=== PATIENT | male | born 1940 | race Caucasian/White ===

== ENCOUNTER → 2016-10-25 | Outpatient (CLI) | payer BC ==
[~2016-10-25] MED LIST: ASCA500 PO; CALC-393 PO; CARB1CAP19 PO; CARB25TA12 PO; CHOL100010 PO; CLON0.5T3 PO; MAGN250T22 PO; MULT-506 PO; POTA99TA PO; PSYL0.524 PO
[2016-10-25 09:32] LABS: BASO % 0.3 %; BASO ABS # 0.02 K/uL (0-0.2); COMPLETE YES; EOS % 4.6 %; HEMATOCRIT 44.4 % (42-52); IG% 0.2 %; LYMPH % 31.7 %; LYMPH ABS # 1.91 K/uL (1.2-3.4); MEAN CELL VOLUME 97.4 fL (80-100); MEAN CORPUSCULAR HEMOGLOBIN 33.1 pg (25-34); MEAN PLATELET VOLUME 10.8 fL (7.4-10.4); MONO % 10.1 %; NEUT % 53.1 %; PLATELET COUNT 195 K/uL (130-400); RED BLOOD COUNT 4.56 M/uL (4.7-6.1); WHITE BLOOD COUNT 6.03 K/uL (4.8-10.8)
[2016-10-25 09:50] LABS: ALT/SGPT 10 U/L (12-78); BLOOD UREA NITROGEN 14 mg/dl (7-18); BUN/CREATININE RATIO 13.7 (10-20); CALCIUM 9.4 mg/dl (8.5-10.1); CARBON DIOXIDE 27 mmol/L (21-32); CHLORIDE 106 mmol/L (98-107); CHOLESTEROL 191 mg/dl (0-200); GLUCOSE 95 mg/dl (70-99); POTASSIUM 4.3 mmol/L (3.5-5.1); SODIUM 139 mmol/L (136-145); TRIGLYCERIDES 63 mg/dl (0-150); VERY LOW DENSITY LIPOPROT CALC 13 mg/dl
[2016-10-25 09:55] LABS: ALKALINE PHOSPHATASE 65 U/L (45-117); AST/SGOT 22 U/L (15-37); CHOLESTEROL/HDL RATIO 3.2; HDL CHOLESTEROL 60 mg/dl; LDL CHOLESTEROL CALCULATED 118 mg/dl; PROSTATE SPECIFIC ANTIGEN < 0.010 ng/ml (0.000-4.000)
== END | disposition home or self-care (01) ==
LOC: C.LAB1850 07:28
PROVIDERS: ATTEND Internal Medicine Pulmonary Disease
DX: I25.10 Atherosclerotic heart disease of native coronary artery without angina pectoris (principal); G47.52 REM sleep behavior disorder; C61 Malignant neoplasm of prostate; I71.4 Abdominal aortic aneurysm, without rupture; G20 Parkinson's disease

== ENCOUNTER → 2016-12-09 | Outpatient (CLI) | payer BC ==
--- NOTE | 2016-12-09 10:38 | DIAGNOSTIC IMAGING REPORT ---
CT OF THE ABDOMEN AND PELVIS WITHOUT CONTRAST CLINICAL HISTORY: Status post open abdominal aortic aneurysm repair. COMPARISON STUDY: CT of the abdomen and pelvis November 07, 2014. TECHNIQUE: Axial images of the abdomen and pelvis were obtained without IV contrast. Images were reviewed in the axial, sagittal, and coronal planes. A dose lowering technique was utilized adhering to the principles of ALARA. FINDINGS: Numerous calcified granulomas within the liver and spleen are noted. Evaluation of the abdomen and pelvis is suboptimal on this unenhanced exam. A few water attenuation left renal lesions are suboptimally assessed on this unenhanced exam but likely reflect cysts. Unenhanced images of the adrenal glands and pancreas are normal. There is a diverticulum of the second portion the duodenum. There is no evidence for a bowel obstruction. There is extensive sigmoid diverticulosis without evidence for acute diverticulitis. There are postoperative findings consistent with an open abdominal aortic aneurysm repair. The infrarenal abdominal aorta is similar in appearance to prior exam, measuring 3.1 cm in caliber. Mild periaortic infiltration remains unchanged. Aneurysmal dilatation of the abdominal aorta at the level the renal arteries, measuring 3.8 cm is noted. This is similar to prior exam. There is no evidence for rupture. There are brachytherapy seeds within the prostate. There are no suspicious osseous lesions. No enlarged abdominal or pelvic lymph nodes are present. IMPRESSION: Stable postoperative findings consistent with open repair of abdominal aortic aneurysm. Abdominal aorta measures 3.8 cm at the level of the renal arteries. Infrarenal abdominal aorta measures 3.1 cm. Stable mild periaortic infiltration. No evidence of rupture. Electronically signed by: Austin Fong M.D. 12/09/2016 10:37 AM Dictated Date/Time: 12/09/2016 10:21 AM
== END | disposition home or self-care (01) ==
LOC: C.CTS 09:52
PROVIDERS: ATTEND Physician Assistant
DX: I71.4 Abdominal aortic aneurysm, without rupture (principal); Z98.890 Other specified postprocedural states

== ENCOUNTER → 2016-12-10 | Outpatient (CLI) | payer BC ==
[2016-12-10 13:21] VITALS: BP 104/68; PULSE 82; TEMP 36.7; O2SAT 92
--- NOTE | 2016-12-10 17:34 | Radiation Oncology Follow-Up ---
Radiation Oncology Follow-Up Date of Visit Dec 10, 2016. Reason For Visit Annual follow-up Radiation Completion Date prostate seed implant 06-18-2011 and IMRT / IGRT 09-18-2011 Diagnosis (1) Prostate cancer Status: Resolved Onset Date: 03/25/2011 Location: right lobe of the prostate Histology Subtype: adenocarcinoma Stage: ll Permanent Comment: Rising PSA Status post ultrasound-guided biopsies biopsy stage T2a Sarah grade 4+4 Status post hormonal suppression Status post prostate seed implant with cesium 131 completed June 18 2011 Status post IMRT/IGRT completed 09/18/2011 Last Edited By: Doris Arboleda on Dec 08, 2014 15:28 History of Present Illness Mr. Perez is a 75-year-old male was seen along with his in radiation oncology clinic . The patient is being followed for PSA from 2005 to November 2010. His PSA was fluctuating from 1.4 to 8. The patient was biopsied in 2008 without evidence of histologically proven cancer. However, the PSA was continued to stay between 6.4 to 7.9 and recently patient had a biopsy for the second time on March 2011. The pathology shows a small focus of adenocarcinoma 8% of he 1.2 cm biopsy speciman showed involvement without perineural invasion. 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 More than couple years patient is on Flomax for for his irritative urinary symptoms of incomplete bladder emptying and nocturia. His most recent urinary symptom score is 8 and Flomax seems to help him for his urinary symptoms. The transrectal ultrasound and transrectal prostate biopsy was done on March 2011 which shows the prostate is about 30 cc. Prostate on digital rectal examination shows no evidence of prostatic nodule. Interim History He's been doing well over this past year. He feels that his urinary status is stable. He gave an AUA score of 6. He completed and expanded prostate cancer index composite for clinical practice and gave a score of one of 12 and urinary incontinence symptoms. He gave a score of 0 of 12 in urinary irritation symptoms. He gave a score of 2 of 12 in bowel symptoms. He gave a score of 8 of 12 in sexual symptoms. He gave a score of 2 of 12 and hormonal vitality symptoms his total was 13 of 60. He had a recheck PSA 10/25/2016. That was less than 0.01. Allergies Coded Allergies: No Known Allergies (Unverified , NONE, 03/06/09) Home Medications Scheduled Carbidopa-Levodopa (Rytary 23.75-95 mg), 1 CAP PO TID Clonazepam (Klonopin), 0.5 TAB PO HS Multivitamin (Multivitamin), 1 TAB PO DAILY Psyllium (Metamucil), 2 MG PO Q2D Review of Systems Gastrointestinal: Symptoms: Constipation GI Comments: takes metamucil every other day Oral: Symptoms: No Problems Respiratory: Symptoms: WNL Sputum Character: Clear to light bang in color; Other Respiratory: " i have a cold or allergies " Urinary: Symptoms: Nocturia Comments: occ dribbling, nocturia times 2 Skin: Symptoms: No Problems Physical Exam Vital Signs Date Time Temp Pulse Resp B/P (MAP) Pulse Ox O2 Delivery O2 Flow Rate FiO2 12/10/16 13:21 36.7 82 18 104/68 92 Pain: Side: Bilateral Patient Pain Scale: 0 - 10 Initial Pain Intensity: 0.0 Fatigue: None General Appearance: + pertinent finding (noted tremor of the hands) Eyes: normal inspection, EOMI ENT: normal ENT inspection, hearing grossly normal Respiratory/Chest: lungs clear, no respiratory distress, no accessory muscle use Cardiovascular: regular rate, rhythm, no gallop, no murmur Abdomen: non tender, soft, no organomegaly Anal / Rectum: Laxed sphincter tone. Prostate consistent with seed implant. No rectal masses no rectal bleeding. Extremities: no pedal edema Neurologic/Psychiatric: no motor/sensory deficits, alert, normal mood/affect Skin: warm/dry Laboratory Studies Test 10/25/16 07:32 White Blood Count 6.03 K/uL (4.8-10.8) Red Blood Count 4.56 M/uL (4.7-6.1) Hemoglobin 15.1 g/dL (14.0-18.0) Hematocrit 44.4 % (42-52) Mean Corpuscular Volume 97.4 fL (80-100) Mean Corpuscular Hemoglobin 33.1 pg (25-34) Mean Corpuscular Hemoglobin Concent 34.0 g/dl (32-36) Platelet Count 195 K/uL (130-400) Mean Platelet Volume 10.8 fL (7.4-10.4) Neutrophils (%) (Auto) 53.1 % Lymphocytes (%) (Auto) 31.7 % Monocytes (%) (Auto) 10.1 % Eosinophils (%) (Auto) 4.6 % Basophils (%) (Auto) 0.3 % Neutrophils # (Auto) 3.20 K/uL (1.4-6.5) Lymphocytes # (Auto) 1.91 K/uL (1.2-3.4) Monocytes # (Auto) 0.61 K/uL (0.11-0.59) Eosinophils # (Auto) 0.28 K/uL (0-0.5) Basophils # (Auto) 0.02 K/uL (0-0.2) RDW Standard Deviation 49.0 fL (36.4-46.3) RDW Coefficient of Variation 13.7 % (11.5-14.5) Immature Granulocyte % (Auto) 0.2 % Immature Granulocyte # (Auto) 0.01 K/uL (0.00-0.02) Sodium Level 139 mmol/L (136-145) Potassium Level 4.3 mmol/L (3.5-5.1) Chloride Level 106 mmol/L (98-107) Carbon Dioxide Level 27 mmol/L (21-32) Anion Gap 6.0 mmol/L (3-11) Blood Urea Nitrogen 14 mg/dl (7-18) Creatinine 1.00 mg/dl (0.60-1.40) Estimated GFR () 83.8 Estimated GFR (Non- 72.3 BUN/Creatinine Ratio 13.7 (10-20) Random Glucose 95 mg/dl (70-99) Calcium Level 9.4 mg/dl (8.5-10.1) Total Bilirubin 0.6 mg/dl (0.2-1) Aspartate Amino Transferase (AST) 22 U/L (15-37) Alanine Aminotransferase (ALT) 10 U/L (12-78) Alkaline Phosphatase 65 U/L (45-117) Total Protein 8.0 gm/dl (6.4-8.2) Albumin 3.9 gm/dl (3.4-5.0) Globulin 4.1 gm/dl (2.5-4.0) Albumin/Globulin Ratio 1.0 (0.9-2) Triglycerides Level 63 mg/dl (0-150) Cholesterol Level 191 mg/dl (0-200) HDL Cholesterol 60 mg/dl LDL Cholesterol, Calculated 118 mg/dl VLDL Cholesterol, Calculated 13 mg/dl Cholesterol/HDL Ratio 3.2 Prostate Specific Antigen < 0.010 ng/ml (0.000-4.000) Assessment & Plan Plan: Continue annual PSAs. He has been getting these through his primary care physician's office. He previously had been taking calcium and vitamin D due to the one year of hormonal suppression. This was discontinued due to a concern of the absorption of his Parkinson's medication. We discussed that the effect that the hormone suppression had was for approximately one year. He did take supplementation for an extended period of time. He is therefore staying off of the calcium and vitamin D. DEXA scanning will be at the discretion of his primary care physician. A follow-up appointment with our office was not given. He will now follow with his primary care physician alone. He may call our office if he has any questions or concerns. Total Time In Follow-Up I spent 20 minutes speaking to the patient formal examination. I spent 15 minutes reviewing information completing this note. Copy To Brian Yan M.D.
== END | disposition home or self-care (01) ==
LOC: C.ONC 12:55
PROVIDERS: ATTEND Physician Assistant Medical
DX: Z08 Encounter for follow-up examination after completed treatment for malignant neoplasm (principal); Z92.3 Personal history of irradiation; Z85.46 Personal history of malignant neoplasm of prostate

== ENCOUNTER → 2017-03-11 | Outpatient (CLI) | payer BC ==
[~2017-03-11] MED LIST changes: -ASCA500 PO; -CALC-393 PO; -CARB25TA12 PO; -CHOL100010 PO; -MAGN250T22 PO; -POTA99TA PO
--- NOTE | 2017-03-11 08:44 | DIAGNOSTIC IMAGING REPORT ---
ULTRASOUND SOFT TISSUES NECK CLINICAL HISTORY: Palpable nodules in the left posterior neck. COMPARISON STUDY: No priors. FINDINGS: Real-time, grayscale, and color flow sonography of the soft tissues of the neck is performed at the indicated site of interest in the left posterior neck. There are 2 heterogeneous hypoechoic nodules identified within the subcutaneous soft tissues at this site. These measure 0.9 x 0.4 x 0.6 cm and 0.3 x 0.3 x 0.3 cm. Both appear to demonstrate a hypoechoic tail which extends to the dermal surface. No internal flow is seen on color imaging. IMPRESSION: 1. There are 2 subcentimeter hypoechoic nonvascular nodules identified within the subcutaneous soft tissues at the site of interest. Both appear to demonstrate a small tail which extends to the dermal surface. This suggests that these represent small sebaceous cysts. 2. Tiny lymph nodes are considered somewhat less likely but are the top differential consideration. Clinical correlation and follow-up will be required. Electronically signed by: Lorenzo Zee M.D. 03/11/2017 8:43 AM Dictated Date/Time: 03/11/2017 8:38 AM
== END | disposition home or self-care (01) ==
LOC: C.ULTR 08:14
PROVIDERS: ATTEND Dermatology
DX: R22.1 Localized swelling, mass and lump, neck (principal)

== ENCOUNTER 2018-07-27 09:55 | Inpatient (IN) ==
[2018-07-27] MEDS ORDERED: ASPIRIN CHEW 324 MG PO STA (10:09)
[2018-07-27] MEDS ORDERED: SODIUM CHLORIDE 0.9% 500 ML IV SCH (10:15)
[2018-07-27] MEDS ORDERED: CARBIDOPA/LEVODOPA 25/100MG TAB PO STA (10:17)
--- NOTE | 2018-07-27 10:43 | XRay Report ---
XR chest 1V portable CLINICAL HISTORY: a flutter dyspnea COMPARISON STUDY: 07/27/2018 9:23 AM FINDINGS: Stable moderate cardiomegaly. Slight increase in pulmonary vasculature. Potential consolida tive change medial aspect right base. IMPRESSION: 1. Mildly progressive components of congestive failure. 2. Potential superimposed consolidative change medial aspect right base. The above report was generated using voice recognition software. It may contain grammatical, syntax or spelling errors. Electronically signed by: Torrey Ramirez M.D. 07/27/2018 10:42 AM
[2018-07-27 10:45] LABS: Basophils # (auto) 0.04 K/uL (0-0.2); Basophils % (auto) 0.3 %; Eosinophils # (auto) 1.42 K/uL (0-0.5); Eosinophils % (auto) 10.2 %; Hematocrit (blood only) 40.2 % (42-52); Hemoglobin 13.4 g/dL (14.0-18.0); Immature Granulocytes # (auto) 0.06 K/uL (0.00-0.02); Immature Granulocytes % (auto) 0.4 %; Lymphocytes # (auto) 1.37 K/uL (1.2-3.4); Lymphocytes % (auto) 9.8 %; Mean Corpuscular Hgb Conc 33.3 g/dL (32-36); Mean Corpuscular Volume 95.7 fL (80-100); Mean Platelet Volume 10.1 fL (7.4-10.4); Monocytes # (auto) 1.43 K/uL (0.11-0.59); Monocytes % (auto) 10.3 %; Platelet Count 286 K/uL (130-400); RDW Coefficient of Variation 13.4 % (11.5-14.5); RDW Standard Deviation 46.6 fL (36.4-46.3); White Blood Count 13.92 K/uL (4.8-10.8)
[2018-07-27] MEDS: SODIUM CHLORIDE 0.9% 1000ML 1,000 ML IV SCH ×2 (10:46→19:31)
[2018-07-27] MEDS: METOPROLOL TARTRATE 1 MG/ML VIAL IV PRN ×3 (10:47→22:56)
[2018-07-27 10:59] LABS: INR 1.1 (0.9-1.1); Partial Thromboplastin Ratio 0.9
[2018-07-27 11:02] LABS: Alanine Aminotransferase 19 U/L (12-78); Aspartate Aminotransferase 17 U/L (15-37); Blood Urea Nitrogen 21 mg/dl (7-18); Calcium 9.1 mg/dl (8.5-10.1); Carbon Dioxide 28 mmol/L (21-32); Chloride 108 mmol/L (98-107); Creatinine Clr Calc Pharmacy 67.5 ml/min; Est GFR (African American) 80.6; Est GFR (Non-African American) 69.6; Glucose 96 mg/dl (70-99); Magnesium 2.6 mg/dl (1.8-2.4); Potassium 4.2 mmol/L (3.5-5.1); Sodium 140 mmol/L (136-145)
[2018-07-27 11:12] LABS: Albumin Globulin Ratio 0.7 (0.9-2); Alkaline Phosphatase 75 U/L (45-117); Bilirubin,Total 0.3 mg/dl (0.2-1); Globulin 4.3 gm/dl (2.5-4.0); Total Protein 7.3 gm/dl (6.4-8.2); Troponin I < 0.015 ng/ml (0-0.045)
[2018-07-27] MEDS ORDERED: SODIUM CHLORIDE 0.9% 1000ML 250 ML IV ONE (11:13)
[2018-07-27] MEDS ORDERED: OPTIRAY 320 125ml IV PRN (11:36)
[2018-07-27] MEDS ORDERED: dilTIAZem HCl 5 MG/ML 5 ML VIAL IV STA (11:50)
--- NOTE | 2018-07-27 11:52 | CT Scan Report ---
CT angio chest PE protocol CT DOSE: 513.36 mGy.cm HISTORY: 77 years-old Male with PE. Acute shortness of breath with tachycardia TECHNIQUE: Multiple CTA images of the chest were obtained after the intravenous administration of 94 ml Optiray 320. Coronal and sagittal MIPS were obtained from the axial data set and were submitted f or review. All measurements were obtained according to NASCET criteria. A dose lowering technique wa s utilized adhering to the principles of ALARA. COMPARISON: Chest CT 03/06/2009. FINDINGS: CTA: Moderate multichamber cardiac enlargement with trace pericardial effusion. Coronary arterial calcific ations are noted. The left heart structures and aortic outflow tract are not well opacified secondary to contrast bolus timing. No thoracic aortic aneurysm identified. Mixed plaque formation of the thor acic aorta and proximal great vessels with mild tortuosity about the descending thoracic aorta. There is mild dilation about the right left main pulmonary arterial branches. The pulmonary arterial tree is opacified to the level of the segmental branches. The distal segmental and subsegmental branches a re not well opacified secondary to contrast bolus timing respiratory motion. There are no focal filli ng defects identified to suggest pulmonary thromboembolic disease. There is reflux of contrast noted into the IVC. CT CHEST: Thyroid appears unremarkable. Enlarged mediastinal, right hilar and subcarinal lymph nodes are noted including a 1.8 x 1.6 cm pretracheal lymph node on image 176 series 4. Chronically calcified left hil ar lymph nodes. Chronic subpleural reticulation with subpleural cystic changes noted about the bilateral lungs. Bilat eral bronchial wall thickening is noted. Subsegmental left basilar atelectasis. Calcified granulomata noted about the lingula. There is a small right pleural effusion. Extensive consolidation is noted t hroughout the right lung which probably involves the right lower lobe but also involves the right mid dle lobe and right upper lobe. Right hilar fullness with narrowing of the bronchus intermedius, right middle and right lower lobe bronchi noted. A discrete mass is not definitively seen. Mucous plugging of the right lung base is also noted. There is mild asymmetric intralobular septal thickening throug hout the right lung with multifocal groundglass densities. Calcified bang limit about the spleen and liver. No acute process of the imaged upper abdomen. The so ft tissues are unremarkable. Bones appear to be intact. Degenerative changes of the shoulders and spi ne. No suspicious bone lesions identified. IMPRESSION: 1. Cardiomegaly with redemonstration of chronic interstitial lung disease. 2. No evidence of pulmonary thromboembolic disease. 3. Small right pleural effusion with extensive consolidation and groundglass densities about the righ t lung involving all lobes however most notably within the right lower lobe. These findings are sugge stive of pneumonia and/or aspiration pneumonitis. 4. There is right hilar fullness with apparent narrowing of the bronchus intermedius, right middle an d lower lobe bronchi with multifocal mucus plugging. Follow-up recommended to exclude underlying [place] r neoplasm. 5. Paratracheal, subcarinal and right hilar adenopathy. 6. Mild intralobular septal thickening throughout the right lung may reflect asymmetric mild pulmonar y edema. 7. Prior granulomatous disease. The above report was generated using voice recognition software. It may contain grammatical, syntax o r spelling errors. Electronically signed by: Guillermo Quevedo M.D. 07/27/2018 11:50 AM
[2018-07-27] MEDS ORDERED: PIPERACILL/TAZOBAC CONSULT ACTIVE PRN (12:09)
[2018-07-27] MEDS ORDERED: PIPERACILLIN/TAZOBACTAM 4.5 GM/120 ML BAG IV ONE (12:09)
[2018-07-27] MEDS ORDERED: dilTIAZem HCl 5 MG/ML 5 ML VIAL IV ONE (12:31)
--- NOTE | 2018-07-27 12:58 | History & Physical Report ---
Date of Service July 27, 2018 Assessment & Plan (1) Atrial flutter with rapid ventricular response: Improved s/p metoprolol and cardizem in the ED, however did become hypoTN Likely related to PNA Monitor ECHO pending Cardiology c/s pending (2) PNA (pneumonia): Noted on CXR and CTA Failed outpt abx/steroids Started on zosyn in the ED, will change to ceftriaxone/azithromycin ?? of aspiration, pt relates hx of some coughing/choking with swallowing ST eval pending Will continue steroids as PO as at home (3) Parkinson disease: continue home meds (4) Anxiety: continue home meds (5) Prostate cancer: Remote hx, no current tx (6) DVT prophylaxis: SCDs, Heparin for DVT proph History of Present Illness Primary Care Provider: Brian Yan MD 77 y/o M who was sent here from PCP's office for aflutter. Pt has been working with PCP for a PNA for the last 2-3 weeks. He was given an abx that was not helping so it was changed to another. He is not certain which abx he was on initially or now. He was also given steroids last week. Pt does not feel he is getting worse, but he is getting no better. Ongoing SOB and cough. He feels that he is getting "played out" very easily now and this is worse over the last week. He tolerates PO but has a low appetite. He states this is not new for him. Pt denies fever, chest pain, abd pain, n/v/c/d, LE pain or swelling. Pt states that he does cough/choke at times after he swallows. He states it does not happen with every meal or even every day, but he cannot quantify this further for me. "I haven't been keeping a record of it." Allergies Allergy/AdvReac Type Severity Reaction Status Date / Time No Known Allergies Allergy Unknown NONE Unverified 07/27/18 10:36 Home Medications Home Medications Medication Instructions Recorded Confirmed Type amoxicillin-pot clavulanate 1 tab PO BID 07/27/18 07/27/18 History carbidopa-levodopa [Rytary] 2 cap PO QID 07/27/18 07/27/18 History clonazepam [Klonopin] 0.25 - 0.5 mg PO HS PRN 07/27/18 07/27/18 History fluoride (sodium) [PreviDent] 1 applic DENTAL DAILY 07/27/18 07/27/18 History prednisone 5 mg PO DIRECTED 07/27/18 07/27/18 History Past Med/Surg History Medical History Anxiety Parkinson disease Prostate cancer (Chronic) Social History Preferred Language: Luxembour[place] Beliefs That Will Affect Care: None Current Living Situation: Spouse Other Information That Helps Us Care for You: No Feels Safe at Home: Yes Smoking Status: Former smoker Hx Alcohol Use: Yes Hx Substance Use: No Review of Systems Pertinent positives and negatives reviewed in HPI--all others negative Physical Exam Vital Signs (Past 24 Hours): Last Vital Signs Pulse 79 07/27/18 12:15 Resp 26 H 07/27/18 12:15 BP 101/56 L 07/27/18 12:15 Pulse Ox 98 07/27/18 12:00 Constitutional: WD/WN, vitals as above Eyes: normal visual jimenez by confrontation and + anicteric sclerae Neck: normal visual inspection and trachea midline Respiratory: normal respiratory effort; no respiratory distress Auscultation: + crackles Cardiovascular: Rate/Rhythm: regular rhythm and + tachycardic Gastrointestinal (Abdomen): Inspection/Auscultation: abdomen not distended Percussion/Palpation: abdomen soft; abdomen nontender Musculoskeletal: Head/Neck/Chest: normocephalic and head atraumatic negative for edema, peripheral pulses intact Skin: no rashes, warm and dry Neurologic: awake; not confused Speech / Cognition: normal speech Psychiatric: A+Ox3, euthymic affect Results & Data Diagnostic Findings CXR: CHF, R base consolidation CTA: 1. Cardiomegaly with redemonstration of chronic interstitial lung disease. 2. No evidence of pulmonary thromboembolic disease. 3. Small right pleural effusion with extensive consolidation and groundglass densities about the right lung involving all lobes however most notably within the right lower lobe. These findings are suggestive of pneumonia and/or aspiration pneumonitis. 4. There is right hilar fullness with apparent narrowing of the bronchus intermedius, right middle and lower lobe bronchi with multifocal mucus plugging. Follow-up recommended to exclude underlying hilar neoplasm. 5. Paratracheal, subcarinal and right hilar adenopathy. 6. Mild intralobular septal thickening throughout the right lung may reflect asymmetric mild pulmonary edema. 7. Prior granulomatous disease. ECG Rhythm: atrial flutter Code Status & VTE Plan Code Status DNR/DNI per pt request VTE Prophylaxis Plan VTE Prophylaxis will be ordered: Yes (1) PNA (pneumonia) Laterality: right Lung location: middle lobe of lung Pneumonia type: due to unspecified organism Qualified Code(s): J18.1 - Lobar pneumonia, unspecified organism
[2018-07-27] MEDS ORDERED: MAGNESIUM HYDROXIDE SUSP 30 ML UDC PO PRN (15:42)
[2018-07-27] MEDS ORDERED: ONDANSETRON INJ 2 MG/ML 2 ML VIAL IV PRN (15:42)
[2018-07-27] MEDS ORDERED: ACETAMINOPHEN 325 MG TAB PO PRN (15:42)
[2018-07-27] MEDS ORDERED: clonazePAM 0.5 MG TAB PO PRN (15:42)
[2018-07-27] MEDS ORDERED: AZITHROMYCIN 500 MG in PEDIATRIC DILUENT 0 ML IV ONE (15:42)
--- NOTE | 2018-07-27 16:27 | Emergency Department Note ---
Entered by Niki Licea acting as a scribe for Paulette Coombs MD History of Present Illness General Chief complaint: Illness Stated complaint: HEART RACING, PNEUMONIA Source: patient, family () and other (nursing staff) History of Present Illness Provider complaint: tachycardia Onset (ago): hour(s) (this morning) Location: chest Quality: + other (tachycardia) Associated symptoms: + weakness and + other (pneumonia); no fever/chills The patient is a 77 year old male who presents to the Emergency Room with complaints of tachycardia this morning. He states that he can feel his heart beating fast and that he does not "feel right." The patient states that he has pneumonia and had an X-Ray done at Dr. Yan's office. Per , the patient has been sick for about 1 month. The patient states that he is not on blood thinners. His states that the patient is on medication for trembling hands. He reports feeling weak but denies being febrile. He denies feeling uncomfortable lying flat. Per nursing staff, the patient has been on doxycycline, Augmentin, and Prednisone and has failed outpatient treatment. Nursing staff states that the patient has a recent history of atrial flutter, and that he had atrial flutter on an ECG done today and was referred here. Home Medications Home Medications Medication Instructions Recorded Confirmed Type amoxicillin-pot clavulanate 1 tab PO BID 07/27/18 07/27/18 History carbidopa-levodopa [Rytary] 2 cap PO QID 07/27/18 07/27/18 History clonazepam [Klonopin] 0.25 - 0.5 mg PO HS PRN 07/27/18 07/27/18 History fluoride (sodium) [PreviDent] 1 applic DENTAL DAILY 07/27/18 07/27/18 History prednisone 5 mg PO DIRECTED 07/27/18 07/27/18 History Allergies Allergy/AdvReac Type Severity Reaction Status Date / Time No Known Allergies Allergy Unknown NONE Unverified 07/27/18 10:36 Past Med/Surg History Medical History Anxiety Parkinson disease Prostate cancer (Chronic) Surgical History S/P AAA repair Family History Brother Heart disease [place] Brother Stroke Other No pertinent family history Social History Preferred Language: Liberian Beliefs That Will Affect Care: None Current Living Situation: Spouse Other Information That Helps Us Care for You: No Feels Safe at Home: Yes Smoking Status: Former smoker Hx Alcohol Use: Yes Hx Substance Use: No Review of Systems See HPI for pertinent positives & negatives. and A total of 10 systems reviewed and were otherwise negative Physical Exam Vital Signs Vital Signs - 24 hr 07/29/18 03:43 07/29/18 08:08 07/29/18 08:30 Temperature 36.8 C 36.9 C Temperature Source Oral Oral Pulse Rate Pulse Rate [Finger] 128 H 89 93 H Pulse Rhythm [Finger] Regular Pulse Strength [Finger] Normal Respiratory Rate 18 22 20 Respiratory Effort / Characteristics Non-Labored Spontaneous Respiratory Depth Normal Deep Deep Respiratory Pattern Blood Pressure [Left Arm] 105/68 99/63 L 120/81 Blood Pressure [Right Arm] Blood Pressure Mean [Left Arm] 80 75 94 Blood Pressure Mean [Right Arm] Blood Pressure Position [Left Arm] Lying Lying Lying Blood Pressure Position [Right Arm] Pulse Oximetry 94 93 92 Oxygen Delivery Method Room Air Room Air Room Air 07/29/18 09:00 07/29/18 09:09 07/29/18 11:59 Temperature 36.4 C L Temperature Source Oral Pulse Rate 87 Pulse Rate [Finger] 87 85 Pulse Rhythm [Finger] Pulse Strength [Finger] Respiratory Rate 18 18 Respiratory Effort / Characteristics Spontaneous Short of Breath Respiratory Depth Normal Respiratory Pattern Regular Blood Pressure [Left Arm] 105/69 102/63 Blood Pressure [Right Arm] Blood Pressure Mean [Left Arm] 81 76 Blood Pressure Mean [Right Arm] Blood Pressure Position [Left Arm] Lying Lying Blood Pressure Position [Right Arm] Pulse Oximetry 92 94 Oxygen Delivery Method Room Air Room Air Room Air 07/29/18 15:46 07/29/18 16:00 07/29/18 19:08 Temperature 36.5 C 36.3 C L Temperature Source Oral Oral Pulse Rate 87 Pulse Rate [Finger] 82 93 H Pulse Rhythm [Finger] Pulse Strength [Finger] Respiratory Rate 20 16 Respiratory Effort / Characteristics Respiratory Depth Respiratory Pattern Blood Pressure [Left Arm] Blood Pressure [Right Arm] 117/74 115/78 Blood Pressure Mean [Left Arm] Blood Pressure Mean [Right Arm] 88 90 Blood Pressure Position [Left Arm] Blood Pressure Position [Right Arm] Lying Lying Pulse Oximetry 95 96 Oxygen Delivery Method Room Air Room Air 07/29/18 20:00 Temperature Temperature Source Pulse Rate Pulse Rate [Finger] Pulse Rhythm [Finger] Pulse Strength [Finger] Respiratory Rate Respiratory Effort / Characteristics Non-Labored Spontaneous Respiratory Depth Normal Respiratory Pattern Regular Blood Pressure [Left Arm] Blood Pressure [Right Arm] Blood Pressure Mean [Left Arm] Blood Pressure Mean [Right Arm] Blood Pressure Position [Left Arm] Blood Pressure Position [Right Arm] Pulse Oximetry Oxygen Delivery Method Room Air Vital signs reviewed. General: Elderly,somewhat ill-appearing male, in no significant distress. HEENT: No scleral icterus, PERRLA, neck supple. Atraumatic. Cardiovascular: Tachycardic rate and regular rhythm, no extra sounds. Pulmonary: Clear to auscultation bilaterally, normal work of breathing. Abdomen: Soft, nontender, nondistended, positive bowel sounds. Musculoskeletal: Atraumatic, no peripheral edema. Neurologic: Patient awake alert and oriented x 3, full strength in all 4 extremities. Cranial nerves 2 through 12 grossly intact. Flat affect. Skin: Warm, dry, no rash Course 1008: The patient was evaluated in room A2, and a complete history and physical examination were performed. 1212: I discussed the patient's case with Dr. Lou Catalan who will evaluate the patient for further management. 1220: I updated the patient and his who verbalized agreement and understanding of the treatment plan. Consultations Consultation #1: Dr. Lou Catalan Time: 12:12 Administered Medications Carbidopa/Levodopa (Sinement Cr 25/100mg) 2 tab PO DAILY@0700,1200,1800 JANE Stop: 08/26/18 17:59 Last Admin: 07/29/18 17:11 Dose: 2 tab Documented by: [id number] Admin: 07/29/18 12:37 Dose: 2 tab Documented by: [id number] Admin: 07/29/18 08:26 Dose: 2 tab Documented by: [id number] Admin: 07/29/18 05:48 Dose: Not Given Documented by: [id number] Admin: 07/28/18 17:18 Dose: 2 tab Documented by: [id number] Admin: 07/28/18 12:27 Dose: 2 tab Documented by: [id number] Admin: 07/28/18 06:17 Dose: 2 tab Documented by: [id number] Admin: 07/27/18 18:27 Dose: 2 tab Documented by: [id number] Guaifenesin (Mucinex) 1,200 mg PO Q12 JANE Stop: 08/28/18 08:59 Last Admin: 07/29/18 19:55 Dose: 1,200 mg Documented by: [id number] Admin: 07/29/18 12:39 Dose: 1,200 mg Documented by: [id number] Ceftriaxone Sodium 1,000 mg/ (Dextrose) 50 mls @ 100 mls/hr IV Q24H JANE; Protocol Stop: 08/03/18 16:29 Last Infusion: 07/29/18 17:08 Dose: 0 mls/hr Documented by: [id number] Admin: 07/29/18 16:14 Dose: 100 mls/hr Documented by: [id number] Infusion: 07/28/18 17:24 Dose: 0 mls/hr Documented by: [id number] Admin: 07/28/18 16:40 Dose: 100 mls/hr Documented by: [id number] Infusion: 07/27/18 17:30 Dose: 0 mls/hr Documented by: [id number] Admin: 07/27/18 16:56 Dose: 100 mls/hr Documented by: [id number] Azithromycin 250 mg/ Dextrose 252.5 mls @ 125 mls/hr IV Q24H JANE Stop: 08/03/18 16:59 Last Infusion: 07/29/18 19:20 Dose: 0 mls/hr Documented by: [id number] Admin: 07/29/18 17:11 Dose: 125 mls/hr Documented by: [id number] Infusion: 07/28/18 20:15 Dose: 0 mls/hr Documented by: [id number] Admin: 07/28/18 17:17 Dose: 125 mls/hr Documented by: [id number] Infusion: 07/27/18 20:50 Dose: 0 mls/hr Documented by: [id number] Admin: 07/27/18 17:22 Dose: 125 mls/hr Documented by: [id number] Heparin Sodium/Dextrose (Heparin Sodium/Dextrose) 25,000 units in 500 mls @ 29 mls/hr IV .[id number] JANE; Protocol Stop: 08/27/18 09:59 Last Admin: 07/29/18 19:55 Dose: 1,450 units/hr, 29 mls/hr Documented by: [id number] Cosigned by: [id number] Titration: 07/29/18 19:55 Dose: 1,450 units/hr, 29 mls/hr Documented by: [id number] Cosigned by: [id number] Titration: 07/29/18 19:07 Dose: 1,450 units/hr, 29 mls/hr Documented by: [id number] Cosigned by: [id number] Titration: 07/29/18 08:10 Dose: 1,450 units/hr, 29 mls/hr Documented by: [id number] Cosigned by: [id number] Admin: 07/29/18 03:11 Dose: 1,450 units/hr, 29 mls/hr Documented by: [id number] Cosigned by: [id number] Titration: 07/29/18 03:11 Dose: 1,450 units/hr, 29 mls/hr Documented by: [id number] Cosigned by: [id number] Titration: 07/28/18 16:51 Dose: 1,450 units/hr, 29 mls/hr Documented by: [id number] Cosigned by: [id number] Admin: 07/28/18 10:06 Dose: 1,450 units/hr, 29 mls/hr Documented by: [id number] Cosigned by: [id number] Ioversol (Optiray 320 125ml) 120 ml IV ONCE PRN PRN Reason: Interaction Checking Stop: 07/31/18 11:35 Last Admin: 07/27/18 11:36 Dose: 120 ml Documented by: [id number] Metoprolol Tartrate (Lopressor) 5 mg IV Q5M PRN PRN Reason: Tachycardia Stop: 08/26/18 10:08 Last Admin: 07/27/18 22:56 Dose: 5 mg Documented by: [id number] Admin: 07/27/18 21:10 Dose: 5 mg Documented by: [id number] Admin: 07/27/18 10:47 Dose: 5 mg Documented by: [id number] Prednisone (Prednisone) 5 mg PO DAILY JANE Stop: 08/27/18 08:59 Last Admin: 07/29/18 08:26 Dose: 5 mg Documented by: [id number] Admin: 07/28/18 08:00 Dose: 5 mg Documented by: [id number] Discontinued Medications Aspirin (Aspirin) 324 mg PO NOW STA Stop: 07/27/18 10:10 Last Admin: 07/27/18 10:46 Dose: 324 mg Documented by: [id number] Benzocaine/Butamben/Tetracaine HCl (Cetacaine) Confirm Administered Dose 1 appln EXT .STK-MED ONE Stop: 07/29/18 07:26 Last Admin: 07/29/18 08:26 Dose: Not Given Documented by: [id number] Carbidopa/Levodopa (Sinemet 25/100 Mg) 1 tab PO NOW STA Stop: 07/27/18 10:18 Last Admin: 07/27/18 10:47 Dose: 1 tab Documented by: [id number] Diltiazem HCl (Cardizem) 10 mg IV NOW STA Stop: 07/27/18 11:51 Last Admin: 07/27/18 11:57 Dose: 10 mg Documented by: [id number] Cosigned by: [id number] Diltiazem HCl (Cardizem) 10 mg IV PRN ONE Stop: 07/27/18 12:32 Last Admin: 07/27/18 13:51 Dose: 10 mg Documented by: [id number] Cosigned by: [id number] Heparin Sodium (Porcine) (Heparin Sodium (Porcine)) 5,000 units SQ Q8 JANE Stop: 08/26/18 21:59 Last Admin: 07/28/18 05:09 Dose: 5,000 units Documented by: [id number] Cosigned by: [id number] Admin: 07/27/18 21:12 Dose: 5,000 units Documented by: [id number] Cosigned by: [id number] Heparin Sodium/Dextrose () 1 ea IV Q15M [facility]; Protocol Stop: 07/28/18 09:46 Last Admin: 07/28/18 10:08 Dose: 1 ea Documented by: [id number] Sodium Chloride (Nss 1000ml) 1,000 mls @ 125 mls/hr IV .Q8H [facility] Stop: 08/26/18 10:14 Last Infusion: 07/29/18 14:27 Dose: 0 mls/hr Documented by: [id number] Admin: 07/29/18 09:29 Dose: 125 mls/hr Documented by: [id number] Infusion: 07/29/18 09:29 Dose: 125 mls/hr Documented by: [id number] Admin: 07/29/18 01:35 Dose: 125 mls/hr Documented by: [id number] Infusion: 07/29/18 01:17 Dose: 125 mls/hr Documented by: [id number] Admin: 07/28/18 17:17 Dose: 125 mls/hr Documented by: [id number] Infusion: 07/28/18 17:17 Dose: 125 mls/hr Documented by: [id number] Admin: 07/28/18 10:08 Dose: 125 mls/hr Documented by: [id number] Infusion: 07/28/18 10:08 Dose: 125 mls/hr Documented by: [id number] Admin: 07/28/18 03:25 Dose: 125 mls/hr Documented by: [id number] Infusion: 07/28/18 03:25 Dose: 125 mls/hr Documented by: [id number] Admin: 07/27/18 19:31 Dose: 125 mls/hr Documented by: [id number] Infusion: 07/27/18 18:46 Dose: 125 mls/hr Documented by: [id number] Admin: 07/27/18 10:46 Dose: 125 mls/hr Documented by: [id number] Sodium Chloride (Nss 1000ml) 250 mls @ 999 mls/hr IV .Q16M ONE Stop: 07/27/18 11:28 Last Infusion: 07/27/18 12:15 Dose: 0 mls/hr Documented by: [id number] Admin: 07/27/18 11:28 Dose: 999 mls/hr Documented by: [id number] Piperacillin Sod/Tazobactam Sod (Zosyn) 4.5 gm in 120 mls @ 240 mls/hr IV NOW ONE Stop: 07/27/18 12:38 Last Infusion: 07/27/18 13:08 Dose: 0 mls/hr Documented by: [id number] Admin: 07/27/18 12:16 Dose: 240 mls/hr Documented by: [id number] Amiodarone HCl/Dextrose (Nexterone / D5w) 150 mg in 100 mls @ 600 mls/hr IV ONE STA Stop: 07/28/18 01:22 Last Infusion: 07/28/18 01:51 Dose: 0 mls/hr Documented by: [id number] Cosigned by: [id number] Admin: 07/28/18 01:35 Dose: 600 mls/hr Documented by: [id number] Cosigned by: [id number] Amiodarone HCl/Dextrose (Nexterone / D5w) 360 mg in 200 mls @ 16.667 mls/hr IV .Q12H JANE Stop: 08/27/18 07:29 Last Infusion: 07/28/18 09:26 Dose: 0 mg/min, 0 mls/hr Documented by: [id number] Cosigned by: [id number] Infusion: 07/28/18 06:57 Dose: 0.5 mg/min, 16.7 mls/hr Documented by: [id number] Cosigned by: [id number] Admin: 07/28/18 06:38 Dose: 0.5 mg/min, 16.7 mls/hr Documented by: [id number] Cosigned by: [id number] Amiodarone HCl/Dextrose (Nexterone / D5w) 360 mg in 200 mls @ 33.333 mls/hr IV .Q6H JANE Stop: 07/28/18 07:29 Last Infusion: 07/28/18 07:19 Dose: 0 mg/min, 0 mls/hr Documented by: [id number] Cosigned by: [id number] Infusion: 07/28/18 06:41 Dose: 0 mg/min, 0 mls/hr Documented by: [id number] Cosigned by: [id number] Admin: 07/28/18 01:46 Dose: 1 mg/min, 33.3 mls/hr Documented by: [id number] Cosigned by: [id number] Digoxin 250 mcg/ Syringe 10 mls @ 2 mls/min IV 0945 JANE Stop: 07/28/18 10:30 Last Admin: 07/28/18 10:07 Dose: 2 mls/min Documented by: [id number] Heparin Sodium (Porcine) 7,000 (units/ Syringe) 7 mls @ 10 mls/min IV 1000 ONE Stop: 07/28/18 10:01 Last Admin: 07/28/18 10:07 Dose: 10 mls/min Documented by: [id number] Cosigned by: [id number] Digoxin 125 mcg/ Syringe 10 mls @ 2 mls/min IV NOW STA Stop: 07/28/18 13:11 Last Admin: 07/28/18 13:57 Dose: 2 mls/min Documented by: [id number] Metoprolol Tartrate (Lopressor) 25 mg PO BID JANE Stop: 07/29/18 23:00 Last Admin: 07/29/18 19:55 Dose: 25 mg Documented by: [id number] Admin: 07/29/18 08:26 Dose: 25 mg Documented by: [id number] Admin: 07/28/18 20:17 Dose: 25 mg Documented by: [id number] Admin: 07/28/18 16:40 Dose: 25 mg Documented by: [id number] Medical Decision Making Differential Diagnosis Etiologies such as premature contractions, electrolyte abnormality, cardiac d ysrhythmia, thyroid dysfunction, pulmonary embolism, infection, gastrointestinal, as well as others were entertained. Medical Records Attestation: I reviewed the patient's medical records. Home Medications Current Medication List: was personally reviewed by me Laboratory Data Attestation: I reviewed the patient's lab results. Result diagrams: 07/28/18 06:10 07/28/18 06:10 Lab Results 07/27/18 07/27/18 07/27/18 Range/Units 10:33 10:33 10:33 WBC 13.92 H (4.8-10.8) K/uL RBC 4.20 L (4.7-6.1) M/uL Hgb 13.4 L (14.0-18.0) g/dL Hct 40.2 L (42-52) % MCV 95.7 (80-100) fL MCH 31.9 (25-34) pg MCHC 33.3 (32-36) g/dL RDW Std Deviation 46.6 H (36.4-46.3) fL RDW Coeff of Zulma 13.4 (11.5-14.5) % Plt Count 286 (130-400) K/uL MPV 10.1 (7.4-10.4) fL Immature Gran % (Auto) 0.4 % Neut % (Auto) 69.0 % Lymph % (Auto) 9.8 % [place] % (Auto) 10.3 % Eos % (Auto) 10.2 % Baso % (Auto) 0.3 % Immature Gran # (Auto) 0.06 H (0.00-0.02) K/uL Neut # (Auto) 9.60 H (1.4-6.5) K/uL Lymph # (Auto) 1.37 (1.2-3.4) K/uL [place] # (Auto) 1.43 H (0.11-0.59) K/uL Eos # (Auto) 1.42 H (0-0.5) K/uL Baso # (Auto) 0.04 (0-0.2) K/uL PT 11.0 (9.0-12.0) Seconds INR 1.1 (0.9-1.1) APTT 25.0 (21.0-31.0) Seconds PTT Ratio 0.9 Sodium 140 (136-145) mmol/L Potassium 4.2 (3.5-5.1) mmol/L Chloride 108 H (98-107) mmol/L Carbon Dioxide 28 (21-32) mmol/L Anion Gap 4.0 (3-11) BUN 21 H (7-18) mg/dl Creatinine 1.02 (0.6-1.4) mg/dl Est Cr Clr Drug Dosing 67.5 ml/min Est GFR ( Amer) 80.6 Est GFR (Non-Af Amer) 69.6 BUN/Creatinine Ratio 21.0 H (10-20) Glucose 96 (70-99) mg/dl POC Glucose (70-99) Lactate (0.4-2.0) mmol/L Calcium 9.1 (8.5-10.1) mg/dl Phosphorus (2.5-4.9) mg/dl Magnesium 2.6 H (1.8-2.4) mg/dl Total Bilirubin 0.3 (0.2-1) mg/dl AST 17 (15-37) U/L ALT 19 (12-78) U/L Alkaline Phosphatase 75 (45-117) U/L Troponin I < 0.015 (0-0.045) ng/ml Total Protein 7.3 (6.4-8.2) gm/dl Albumin 3.0 L (3.4-5.0) gm/dl Globulin 4.3 H (2.5-4.0) gm/dl Albumin/Globulin Ratio 0.7 L (0.9-2) TSH 1.090 (0.300-4.500) uIu/ml 07/27/18 07/27/18 07/27/18 Range/Units 10:33 16:59 21:36 WBC (4.8-10.8) K/uL RBC (4.7-6.1) M/uL Hgb (14.0-18.0) g/dL Hct (42-52) % MCV (80-100) fL MCH (25-34) pg MCHC (32-36) g/dL RDW Std Deviation (36.4-46.3) fL RDW Coeff of Zulma (11.5-14.5) % Plt Count (130-400) K/uL MPV (7.4-10.4) fL Immature Gran % (Auto) % Neut % (Auto) % Lymph % (Auto) % [place] % (Auto) % Eos % (Auto) % Baso % (Auto) % Immature Gran # (Auto) (0.00-0.02) K/uL Neut # (Auto) (1.4-6.5) K/uL Lymph # (Auto) (1.2-3.4) K/uL [place] # (Auto) (0.11-0.59) K/uL Eos # (Auto) (0-0.5) K/uL Baso # (Auto) (0-0.2) K/uL PT (9.0-12.0) Seconds INR (0.9-1.1) APTT (21.0-31.0) Seconds PTT Ratio Sodium (136-145) mmol/L Potassium (3.5-5.1) mmol/L Chloride (98-107) mmol/L Carbon Dioxide (21-32) mmol/L Anion Gap (3-11) BUN (7-18) mg/dl Creatinine (0.6-1.4) mg/dl Est Cr Clr Drug Dosing ml/min Est GFR ( Amer) Est GFR (Non-Af Amer) BUN/Creatinine Ratio (10-20) Glucose (70-99) mg/dl POC Glucose (70-99) Lactate 1.3 (0.4-2.0) mmol/L Calcium (8.5-10.1) mg/dl Phosphorus (2.5-4.9) mg/dl Magnesium (1.8-2.4) mg/dl Total Bilirubin (0.2-1) mg/dl AST (15-37) U/L ALT (12-78) U/L Alkaline Phosphatase (45-117) U/L Troponin I < 0.015 < 0.015 (0-0.045) ng/ml Total Protein (6.4-8.2) gm/dl Albumin (3.4-5.0) gm/dl Globulin (2.5-4.0) gm/dl Albumin/Globulin Ratio (0.9-2) TSH (0.300-4.500) uIu/ml 07/28/18 07/28/18 07/28/18 Range/Units 06:10 06:10 16:01 WBC 11.25 H (4.8-10.8) K/uL RBC 3.71 L (4.7-6.1) M/uL Hgb 11.8 L (14.0-18.0) g/dL Hct 35.4 L (42-52) % MCV 95.4 (80-100) fL MCH 31.8 (25-34) pg MCHC 33.3 (32-36) g/dL RDW Std Deviation 47.1 H (36.4-46.3) fL RDW Coeff of Zulma 13.4 (11.5-14.5) % Plt Count 248 (130-400) K/uL MPV 9.6 (7.4-10.4) fL Immature Gran % (Auto) 0.3 % Neut % (Auto) 70.5 % Lymph % (Auto) 10.4 % [place] % (Auto) 10.0 % Eos % (Auto) 8.4 % Baso % (Auto) 0.4 % Immature Gran # (Auto) 0.03 H (0.00-0.02) K/uL Neut # (Auto) 7.93 H (1.4-6.5) K/uL Lymph # (Auto) 1.17 L (1.2-3.4) K/uL [place] # (Auto) 1.13 H (0.11-0.59) K/uL Eos # (Auto) 0.95 H (0-0.5) K/uL Baso # (Auto) 0.04 (0-0.2) K/uL PT (9.0-12.0) Seconds INR (0.9-1.1) APTT 50.0 H* (21.0-31.0) Seconds PTT Ratio 1.8 Sodium 139 (136-145) mmol/L Potassium 4.0 (3.5-5.1) mmol/L Chloride 109 H (98-107) mmol/L Carbon Dioxide 25 (21-32) mmol/L Anion Gap 5.0 (3-11) BUN 19 H (7-18) mg/dl Creatinine 0.87 (0.6-1.4) mg/dl Est Cr Clr Drug Dosing 79.2 ml/min Est GFR ( Amer) 95.1 Est GFR (Non-Af Amer) 82.1 BUN/Creatinine Ratio 22.0 H (10-20) Glucose 120 H (70-99) mg/dl POC Glucose (70-99) Lactate (0.4-2.0) mmol/L Calcium 8.0 L (8.5-10.1) mg/dl Phosphorus (2.5-4.9) mg/dl Magnesium (1.8-2.4) mg/dl Total Bilirubin (0.2-1) mg/dl AST (15-37) U/L ALT (12-78) U/L Alkaline Phosphatase (45-117) U/L Troponin I (0-0.045) ng/ml Total Protein (6.4-8.2) gm/dl Albumin (3.4-5.0) gm/dl Globulin (2.5-4.0) gm/dl Albumin/Globulin Ratio (0.9-2) TSH (0.300-4.500) uIu/ml 07/29/18 07/29/18 07/29/18 Range/Units 06:46 06:46 10:55 WBC (4.8-10.8) K/uL RBC (4.7-6.1) M/uL Hgb (14.0-18.0) g/dL Hct (42-52) % MCV (80-100) fL MCH (25-34) pg MCHC (32-36) g/dL RDW Std Deviation (36.4-46.3) fL RDW Coeff of Zulma (11.5-14.5) % Plt Count (130-400) K/uL MPV (7.4-10.4) fL Immature Gran % (Auto) % Neut % (Auto) % Lymph % (Auto) % [place] % (Auto) % Eos % (Auto) % Baso % (Auto) % Immature Gran # (Auto) (0.00-0.02) K/uL Neut # (Auto) (1.4-6.5) K/uL Lymph # (Auto) (1.2-3.4) K/uL [place] # (Auto) (0.11-0.59) K/uL Eos # (Auto) (0-0.5) K/uL Baso # (Auto) (0-0.2) K/uL PT (9.0-12.0) Seconds INR (0.9-1.1) APTT 49.1 H* (21.0-31.0) Seconds PTT Ratio 1.8 Sodium (136-145) mmol/L Potassium (3.5-5.1) mmol/L Chloride (98-107) mmol/L Carbon Dioxide (21-32) mmol/L Anion Gap (3-11) BUN (7-18) mg/dl Creatinine (0.6-1.4) mg/dl Est Cr Clr Drug Dosing ml/min Est GFR ( Amer) Est GFR (Non-Af Amer) BUN/Creatinine Ratio (10-20) Glucose (70-99) mg/dl POC Glucose 122 H (70-99) Lactate (0.4-2.0) mmol/L Calcium (8.5-10.1) mg/dl Phosphorus 2.2 L (2.5-4.9) mg/dl Magnesium 2.2 (1.8-2.4) mg/dl Total Bilirubin (0.2-1) mg/dl AST (15-37) U/L ALT (12-78) U/L Alkaline Phosphatase (45-117) U/L Troponin I (0-0.045) ng/ml Total Protein (6.4-8.2) gm/dl Albumin (3.4-5.0) gm/dl Globulin (2.5-4.0) gm/dl Albumin/Globulin Ratio (0.9-2) TSH (0.300-4.500) uIu/ml Imaging Data Radiologist's Impression: Radiology results as stated below per my review and the radiologist's interpretation: XR chest 1V portable CLINICAL HISTORY: a flutter dyspnea COMPARISON STUDY: 07/27/2018 9:23 AM FINDINGS: Stable moderate cardiomegaly. Slight increase in pulmonary vasculature. Potential consolidative change medial aspect right base. IMPRESSION: 1. Mildly progressive components of congestive failure. 2. Potential superimposed consolidative change medial aspect right base. The above report was generated using voice recognition software. It may contain grammatical, syntax or spelling errors. Electronically signed by: Torrey Ramirez M.D. 07/27/2018 10:[address] angio chest PE protocol CT DOSE: 513.36 mGy.cm HISTORY: 77 years-old Male with PE. Acute shortness of breath with tachycardia TECHNIQUE: Multiple CTA images of the chest were obtained after the intravenous administration of 94 ml Optiray 320. Coronal and sagittal MIPS were obtained from the axial data set and were submitted for review. All measurements were obtained according to NASCET criteria. A dose lowering technique was utilized a dhering to the principles of ALARA. COMPARISON: Chest CT 03/06/2009. FINDINGS: CTA: Moderate multichamber cardiac enlargement with trace pericardial effusion. Coronary arterial calcifications are noted. The left heart structures and aortic outflow tract are not well opacified secondary to contrast bolus timing. No thoracic aortic aneurysm identified. Mixed plaque formation of the thoracic ao rta and proximal great vessels with mild tortuosity about the descending thoracic aorta. There is mild dilation about the right left main pulmonary arterial branches. The pulmonary arterial tree is opacified to the level of the segmental branches. The distal segmental and subsegmental branches are not well opacified secondary to contrast bolus timing respiratory motion. There are no focal filling defects identified to suggest pulmonary thromboembolic disease. There is reflux of contrast noted into the IVC. CT CHEST: Thyroid appears unremarkable. Enlarged mediastinal, right hilar and subcarinal lymph nodes are noted including a 1.8 x 1.6 cm pretracheal lymph node on image 176 series 4. Chronically calcified left hilar lymph nodes. Chronic subpleural reticulation with subpleural cystic changes noted about the bilateral lungs. Bilateral bronchial wall thickening is noted. Subsegmental left basilar atelectasis. Calcified granulomata noted about the lingula. There is a small right pleural effusion. Extensive consolidation is noted throughout the right lung which probably involves the right lower lobe but also involves the right middle lobe and right upper lobe. Right hilar fullness with narrowing of the bronchus intermedius, right middle and right lower lobe bronchi noted. A discrete mass is not definitively seen. Mucous plugging of the right lung base is also noted. There is mild asymmetric intralobular septal thickening throughout the right lung with multifocal groundglass densities. Calcified bang limit about the spleen and liver. No acute process of the imaged upper abdomen. The soft tissues are unremarkable. Bones appear to be intact. Degenerative changes of the shoulders and spine. No suspicious bone lesions identified. IMPRESSION: 1. Cardiomegaly with redemonstration of chronic interstitial lung disease. 2. No evidence of pulmonary thromboembolic disease. 3. Small right pleural effusion with extensive consolidation and groundglass densities about the right lung involving all lobes however most notably within the right lower lobe. These findings are suggestive of pneumonia and/or aspiration pneumonitis. 4. There is right hilar fullness with apparent narrowing of the bronchus intermedius, right middle and lower lobe bronchi with multifocal mucus plugging. Follow-up recommended to exclude underlying hilar neoplasm. 5. Paratracheal, subcarinal and right hilar adenopathy. 6. Mild intralobular septal thickening throughout the right lung may reflect asymmetric mild pulmonary edema. 7. Prior granulomatous disease. The above report was generated using voice recognition software. It may contain grammatical, syntax or spelling errors. Electronically signed by: Guillermo Quevedo M.D. 07/27/2018 11:50 AM ECG Data Attestation: I personally reviewed and interpreted this ECG as follows: Indication: tachycardia Rate (beats per minute): 143 Rhythm: atrial flutter Findings: + other (intraventricular conduction delay, T wave abnormality); no PAC, no PVC, no ST depression, no ST elevation, no acute ischemic change and no ectopy Blood Pressure Blood Pressure Findings: Normal blood pressure MDM Narrative This patient was evaluated and appeared to be in no significant distress. IV access was obtained and laboratory work was drawn. Patient is found to be in a rapid atrial flutter on EKG and telemetry. IV hydration was initiated as the patient is noted to be hypotensive. He was given 5 mg of IV metoprolol without significant improvement. Patient became more significantly hypotensive and was given a 250 cc bolus of normal saline solution. CT scan of the chest was performed due to persistent infiltrate after antibiotic treatment. This study is read as above. Patient was medicated with Cardizem 10 mg IV with better rate control. He remained in atrial flutter. Patient was medicated with IV Zosyn for likely pneumonia. Patient's case was discussed with the hospitalist service, Dr. Toth, who will evaluate the patient for further management. Impression & Plan PNA (pneumonia), Atrial flutter with rapid ventricular response Critical Care Time I have personally spent greater than 35 minutes of critical care time in the direct management of this patient. This includes bedside care, interpretation of diagnostic studies, and testing, discussion with consultants, patient, and family members, and other required patient management activities. This 35 minutes is in excess of all separately billable procedures. Critical Care Time: Yes Total Critical Care Time: 35 Discharge Plan Visit Data *Final* Discharge Date/Time: 07/27/18 14:38 Chief Complaint: Illness Stated Complaint: HEART RACING, PNEUMONIA ED Provider: Paulette Coombs Discharge Problem: PNA (pneumonia), Atrial flutter with rapid ventricular response Patient Disposition: Admitted As Inpatient Discharge Instructions Interventions: ED Discharge Assessment Last Done: 07/27/18 14:38 Discharge Problem: PNA (pneumonia) Qualifiers: Pneumonia type: due to unspecified organism Laterality: right Lung location: middle lobe of lung Qualified Code(s): J18.1 - Lobar pneumonia, unspecified organism The scribe's documentation has been prepared under my direction and personally reviewed by me in its entirety. I confirm that the note above accurately reflects all work, treatment, procedures, and medical decision making performed by me.
[2018-07-27] MEDS: cefTRIAXone SODIUM 1,000 MG in DEXTROSE 5% 50 ML IV SCH (16:56)
[2018-07-27] MEDS: AZITHROMYCIN 250 MG in DEXTROSE 5% 250 ML IV SCH (17:22)
[2018-07-27] MEDS: CARBIDOPA/LEVODOPA 25/100MG EXT REL TAB PO SCH (18:27)
[2018-07-27] MEDS: HEPARIN SOD 5,000 UNIT/0.5 ML VIAL SQ SCH (21:12)
[2018-07-28] MEDS ORDERED: AMIODARONE / D5W 150 MG/100 ML BAG IV STA (01:13)
[2018-07-28] MEDS ORDERED: AMIODARONE IV BOLUS / DRIP IV STA (01:13)
[2018-07-28] MEDS ORDERED: AMIODARONE / D5W 360 MG/200 ML BAG IV SCH ×2 (01:30→07:30)
[2018-07-28] MEDS: SODIUM CHLORIDE 0.9% 1000ML 1,000 ML IV SCH ×3 (03:25→17:17)
[2018-07-28] MEDS: HEPARIN SOD 5,000 UNIT/0.5 ML VIAL SQ SCH (05:09)
[2018-07-28] MEDS: CARBIDOPA/LEVODOPA 25/100MG EXT REL TAB PO SCH ×3 (06:17→17:18)
[2018-07-28 06:23] LABS: Basophils # (auto) 0.04 K/uL (0-0.2); Basophils % (auto) 0.4 %; Eosinophils # (auto) 0.95 K/uL (0-0.5); Eosinophils % (auto) 8.4 %; Hematocrit (blood only) 35.4 % (42-52); Hemoglobin 11.8 g/dL (14.0-18.0); Immature Granulocytes # (auto) 0.03 K/uL (0.00-0.02); Immature Granulocytes % (auto) 0.3 %; Lymphocytes # (auto) 1.17 K/uL (1.2-3.4); Lymphocytes % (auto) 10.4 %; Mean Corpuscular Hgb Conc 33.3 g/dL (32-36); Mean Corpuscular Volume 95.4 fL (80-100); Mean Platelet Volume 9.6 fL (7.4-10.4); Monocytes # (auto) 1.13 K/uL (0.11-0.59); Neutrophils # (auto) 7.93 K/uL (1.4-6.5); Neutrophils % (auto) 70.5 %; Platelet Count 248 K/uL (130-400); RDW Coefficient of Variation 13.4 % (11.5-14.5); RDW Standard Deviation 47.1 fL (36.4-46.3); Red Blood Count 3.71 M/uL (4.7-6.1); White Blood Count 11.25 K/uL (4.8-10.8)
[2018-07-28 06:42] LABS: Creatinine Clr Calc Pharmacy 79.2 ml/min; Est GFR (African American) 95.1; Est GFR (Non-African American) 82.1
[2018-07-28] MEDS: predniSONE 5 MG TAB PO SCH (08:00)
[2018-07-28] MEDS ORDERED: DIGOXIN 250 MCG in SYRINGE 9 ML IV SCH (09:45)
[2018-07-28] MEDS ORDERED: HEPARIN IV BOLUS 7,000 UNITS in SYRINGE 0 ML IV ONE (10:00)
[2018-07-28] MEDS: HEPARIN SODIUM/DEXTROSE 25,000 UNITS/500 ML BAG IV SCH (10:06)
--- NOTE | 2018-07-28 10:29 | Anesthesiology Consultation ---
Date of Service July 28, 2018 Assessment & Plan (1) Encounter for pre-operative examination: Chart Review Chart Review: Acceptable Risk for Surgery History Surgery Operation Date: 07/29/18 07:30 Proposed Procedures p Transesophageal Echo w/Anesthesia - Ajit Loera MD s Cardioversion Editor At Large w/Anesthesia - Ajit Loera MD Height/Weight Height: 5 ft 10 in Weight: 93.8 kg Allergies Allergy/AdvReac Type Severity Reaction Status Date / Time No Known Allergies Allergy Unknown NONE Unverified 07/27/18 10:36 Medications Home Medications Medication Instructions Recorded Confirmed Last Taken amoxicillin-pot clavulanate 1 tab PO BID 07/27/18 07/27/18 Unknown carbidopa-levodopa [Rytary] 2 cap PO QID 07/27/18 07/27/18 Unknown clonazepam [Klonopin] 0.25 - 0.5 mg PO HS PRN 07/27/18 07/27/18 Unknown fluoride (sodium) [PreviDent] 1 applic DENTAL DAILY 07/27/18 07/27/18 Unknown prednisone 5 mg PO DIRECTED 07/27/18 07/27/18 Unknown Active Medications Generic Name Dose Route Start Last Admin Trade Name Freq PRN Reason Stop Dose Admin Carbidopa/Levodopa 2 tab 07/27/18 18:00 07/28/18 06:17 Sinement Cr 25/100mg PO 08/26/18 17:59 2 tab DAILY@0700,1200,1800 JANE Administration Sodium Chloride 1,000 mls @ 125 mls/hr 07/27/18 10:15 07/28/18 10:08 Nss 1000ml IV 08/26/18 10:14 125 mls/hr .Q8H JANE Administration Ceftriaxone Sodium 1,000 mg/ 50 mls @ 100 mls/hr 07/27/18 16:30 07/27/18 17:30 Dextrose IV 08/03/18 16:29 Infused Q24H JANE Infusion Protocol Azithromycin 250 mg/ Dextrose 252.5 mls @ 125 mls/hr 07/27/18 17:00 07/27/18 20:50 IV 08/03/18 16:59 Infused Q24H JANE Infusion Heparin Sodium/Dextrose 25,000 units in 500 mls @ 29 mls/hr 07/28/18 10:00 07/28/18 10:06 Heparin Sodium/Dextrose IV 08/27/18 09:59 1,450 units/hr .[id number] JANE 29 mls/hr Administration Protocol 1,450 UNITS/HR Ioversol 120 ml 07/27/18 11:36 07/27/18 11:36 Optiray 320 125ml IV 07/31/18 11:35 120 ml ONCE PRN Administration Interaction Checking Metoprolol Tartrate 5 mg 07/27/18 10:09 07/27/18 22:56 Lopressor IV 08/26/18 10:08 5 mg Q5M PRN Administration Tachycardia Prednisone 5 mg 07/28/18 09:00 07/28/18 08:00 Prednisone PO 08/27/18 08:59 5 mg DAILY JANE Administration Past Medical History Medical History Anxiety Parkinson disease Atrial fibrillation with rapid ventricular response Prostate cancer (Chronic) Past Family History Family History Brother Heart disease ID Brother Stroke Other No pertinent family history Social History Smoking Status: Former smoker Do You Dip or Chew Tobacco: No Smoking End Date: 06/2018 Hx Alcohol Use: Yes Hx Substance Use: No Physical Exam Vital Signs Last Vital Signs Temp 36.4 C L 07/28/18 07:28 Pulse 130 H 07/28/18 10:07 Resp 18 07/28/18 03:39 BP 95/64 L 07/28/18 07:28 Pulse Ox 90 07/28/18 07:28 Testing Electrocardiogram Date: 07/28/18 Findings: + AFIB @ (132 NSST changes) Echocardiogram Date: 07/27/18 EF: 40-45% LV Function: dysfunctional RWMA: + hypokinetic (global hypokinesis) Valvular Disease: + no significant valvular disease Laboratory Results 07/28/18 06:10 07/28/18 06:10 PT 11.0 Seconds (9.0-12.0) 07/27/18 10:33 INR 1.1 (0.9-1.1) 07/27/18 10:33 APTT 25.0 Seconds (21.0-31.0) 07/27/18 10:33
[2018-07-28] MEDS ORDERED: DIGOXIN 125 MCG in SYRINGE 9.5 ML IV STA (13:07)
--- NOTE | 2018-07-28 14:01 | Cardiology Consultation ---
Date of Consultation July 28, 2018 Assessment & Plan (1) Atrial flutter with rapid ventricular response: He became hypotensive with intravenous diltiazem and metoprolol. If his blood pressure allows, consider oral metoprolol to try to obtain better heart rate control. In the meantime, digoxin can be used. It is less likely that rate control will be successfully achieved with atrial flutter. Would recommend electrical cardioversion but given the fact that we do not know onset, transeso phageal echo recommended prior to cardioversion. Risks and benefits of MILAD and cardioversion were discussed with him in detail. He was agreeable to undergo the procedure. Cardioversion is not emergent. If able to be done today, will attempt but otherwise tomorrow morning when all parties are available. Unfortunately, he ate breakfast this morning. Recommend discontinuation of amiodarone to try to avoid cardioversion in this asymptomatic person without first evaluating left atrial appendage for thrombus. Recommend therapeutic anticoagulation in the form of heparin drip. These recommendations were discussed in detail with Dr. Egan and also nursing staff. Dr. Egan was agreeable to place these orders. TSH was normal. Recommend anticoagulation upon discharge for stroke risk reduction. Patient was agreeable. Would consider novel agent. (2) Cardiomyopathy: Likely due to tachycardia. Will repeat echo in the future once his heart rate consistently improves. Recommend low-dose beta-geoff if blood pressure allows. Current blood pressure is acceptable and therefore will start metoprolol tartrate 25 mg twice daily. (3) Dyspnea on exertion: Likely secondary to atrial flutter with rapid ventricular response but also has documented pneumonia versus aspiration pneumonitis according to CT scan. Atrial flutter plan as above. Otherwise, defer to primary service. He appears euvolemic. Disposition: Cardiology will continue to follow. Plan of care discussed with Dr. Egan of the hospitalist service. Highly complex medical issues. History of Present Illness Reason for Consultation: Atrial flutter Requesting Physician: Dr. Toth Attending Physician: Donta Egan MD, PhD, [facility] History of Present Illness Mr. Perez is a very pleasant 77-year-old gentleman with history significant for Parkinson's, AAA status post surgical graft repair 2008, and prostate cancer who was referred to the emergency department from his PCPs office when he was found to be in atrial flutter with rapid ventricular response. He has been doctoring lately for pneumonia on the right side. He had been on doxycycline and prednisone and Augmentin but his symptoms have not improved much. He has dyspnea with exertion over the past 4-5 weeks which he believes is now stable. He has cough sometimes productive of a mostly clear sputum. He apparently had a very small amount of blood in his sputum 1 week ago when coughing but none since. He denies chest pain, orthopnea, PND, syncope, near- syncope, palpitations, or edema. He denies melena, hematochezia, or hematuria. The onset of atrial flutter is not known as he denies any palpitations. He denies a history of CHF, TIA, stroke, diabetes, or hypertension. Hospitalist service has initiated azithromycin. Overnight, hospitalist service also initiated amiodarone therapy. He became hypotensive after receiving IV metoprolol and IV diltiazem in the emergency department. He was then placed on amiodarone by the hospitalist service but his heart rate did not improve. He remained in atrial flutter. He was given DVT prophylaxis heparin overnight. Review of systems: As above. He also admits to some difficulty in swallowing liquids, sometimes feeling as though he has to gasp or vomit. Otherwise, review of systems negative or unremarkable. Family history: No known premature CAD. Social history: Quit smoking in June of 2018 but had smoked cigars for 15-20 years. Occasional alcohol. Lives at home with his . He has a son who lives locally and also 1 in [place]. Grandchildren. He is retired from [employer]. He was alone in his hospital room. Allergies Allergy/AdvReac Type Severity Reaction Status Date / Time No Known Allergies Allergy Unknown NONE Unverified 07/27/18 10:36 Home Medications Home Medications Medication Instructions Recorded Confirmed Type amoxicillin-pot clavulanate 1 tab PO BID 07/27/18 07/27/18 History carbidopa-levodopa [Rytary] 2 cap PO QID 07/27/18 07/27/18 History clonazepam [Klonopin] 0.25 - 0.5 mg PO HS PRN 07/27/18 07/27/18 History fluoride (sodium) [PreviDent] 1 applic DENTAL DAILY 07/27/18 07/27/18 History prednisone 5 mg PO DIRECTED 07/27/18 07/27/18 History Patient History Medical History Anxiety Parkinson disease Prostate cancer (Chronic) Surgical History S/P AAA repair Family History Brother Heart disease HI Brother Stroke Other No pertinent family history Social History Preferred Language: Maltese Beliefs That Will Affect Care: None Current Living Situation: Spouse Other Information That Helps Us Care for You: No Feels Safe at Home: Yes Smoking Status: Former smoker Hx Alcohol Use: Yes Hx Substance Use: No Physical Exam Vital Signs (Past 24 Hours): Last Vital Signs Temp 36.4 C L 07/28/18 11:40 Pulse 134 H 07/28/18 11:40 Resp 18 07/28/18 11:40 BP 115/79 07/28/18 11:40 Pulse Ox 93 07/28/18 11:40 Physical Exam: Gen.: No acute distress. Alert and oriented. HEENT: Anicteric sclera. Neck: No JVD. No bruits. Normal carotid upstrokes bilaterally. Cardiac: PMI was nondisplaced. No ventricular heave. Tachycardic but regular. Normal S1-S2. No murmurs, rubs, or gallops. Pulmonary: Decreased breath sounds at the right base, otherwise clear to auscultation bilaterally without wheezes, rales, or rhonchi. Abdomen: Soft, nontender, nondistended, with normoactive bowel sounds. No bruits noted. Extremities: 2+ radial pulses bilaterally. 2+ posterior tibialis pulses bilaterally. No edema or cyanosis. No palpable cords. Psychiatric: Affect appears appropriate. Results & Data Laboratory Results Laboratory Results - last 24 hr 07/27/18 07/27/18 07/28/18 16:59 21:36 06:10 WBC 11.25 H RBC 3.71 L Hgb 11.8 L Hct 35.4 L MCV 95.4 MCH 31.8 MCHC 33.3 RDW Std Deviation 47.1 H RDW Coeff of Zulma 13.4 Plt Count 248 MPV 9.6 Immature Gran % (Auto) 0.3 Neut % (Auto) 70.5 Lymph % (Auto) 10.4 [place] % (Auto) 10.0 Eos % (Auto) 8.4 Baso % (Auto) 0.4 Immature Gran # (Auto) 0.03 H Neut # (Auto) 7.93 H Lymph # (Auto) 1.17 L [place] # (Auto) 1.13 H Eos # (Auto) 0.95 H Baso # (Auto) 0.04 Sodium Potassium Chloride Carbon Dioxide Anion Gap BUN Creatinine Est Cr Clr Drug Dosing Est GFR ( Amer) Est GFR (Non-Af Amer) BUN/Creatinine Ratio Glucose Calcium Troponin I < 0.015 < 0.015 07/28/18 06:10 WBC RBC Hgb Hct MCV MCH MCHC RDW Std Deviation RDW Coeff of Zulma Plt Count MPV Immature Gran % (Auto) Neut % (Auto) Lymph % (Auto) [place] % (Auto) Eos % (Auto) Baso % (Auto) Immature Gran # (Auto) Neut # (Auto) Lymph # (Auto) [place] # (Auto) Eos # (Auto) Baso # (Auto) Sodium 139 Potassium 4.0 Chloride 109 H Carbon Dioxide 25 Anion Gap 5.0 BUN 19 H Creatinine 0.87 Est Cr Clr Drug Dosing 79.2 Est GFR ( Amer) 95.1 Est GFR (Non-Af Amer) 82.1 BUN/Creatinine Ratio 22.0 H Glucose 120 H Calcium 8.0 L Troponin I Diagnostic Findings Telemetry personally reviewed: Atrial flutter. ECGs personally reviewed: ECG 07/27/2018 at 10:11 a.m.: Atrial flutter 2-1 block at 143 bpm. Nonspecific T-wave abnormality. ECG 07/28/2018 at 6:08 a.m.: Atrial flutter 2-1 block at 132 BMP. PVC versus aberrantly conducted complex. Echo 07/28/2018: Grossly normal ventricular size with probably mildly reduced LV systolic function. Estimated EF 40-45%. Global hypokinesis. Mild LVH no significant valvular abnormalities visualized. Poor image quality. Atrial flutter with rapid ventricular response. CT chest 07/27/2018: Chronic interstitial lung disease. No PE. Small right pleural effusion with extensive consolidation and ground-glass densities about the right lung involving all lobes, most notably the right lower lobe. This suggests pneumonia and/or aspiration pneumonitis. Right hilar fullness with apparent narrowing of the bronchus intermedius, right middle and lower lobe bronchi with multifocal mucous plugging. Paratracheal, subcarinal and right hil ar adenopathy. Medications Administered Current Inpatient Medications Acetaminophen (Tylenol) 650 mg PO Q4H PRN PRN Reason: Pain or Fever Stop: 08/26/18 15:41 Carbidopa/Levodopa (Sinement Cr 25/100mg) 2 tab PO DAILY@0700,1200,1800 [facility] Stop: 08/26/18 17:59 Last Admin: 07/28/18 12:27 Dose: 2 tab Documented by: Clonazepam (Klonopin) 0.25 mg PO HS PRN PRN Reason: Anxiety Stop: 08/26/18 15:41 Sodium Chloride (Nss 1000ml) 1,000 mls @ 125 mls/hr IV .Q8H [facility] Stop: 08/26/18 10:14 Last Admin: 07/28/18 10:08 Dose: 125 mls/hr Documented by: Ceftriaxone Sodium 1,000 mg/ (Dextrose) 50 mls @ 100 mls/hr IV Q24H [facility]; Protocol Stop: 08/03/18 16:29 Last Infusion: 07/27/18 17:30 Dose: Infused Documented by: Azithromycin 250 mg/ Dextrose 252.5 mls @ 125 mls/hr IV Q24H [facility] Stop: 08/03/18 16:59 Last Infusion: 07/27/18 20:50 Dose: Infused Documented by: Heparin Sodium/Dextrose (Heparin Sodium/Dextrose) 25,000 units in 500 mls @ 29 mls/hr IV .[id number] [facility]; Protocol Stop: 08/27/18 09:59 Last Admin: 07/28/18 10:06 Dose: 1,450 units/hr, 29 mls/hr Documented by: Ioversol (Optiray 320 125ml) 120 ml IV ONCE PRN PRN Reason: Interaction Checking Stop: 07/31/18 11:35 Last Admin: 07/27/18 11:36 Dose: 120 ml Documented by: Magnesium Hydroxide (Milk Of Magnesia) 30 ml PO Q12H PRN PRN Reason: Constipation Stop: 08/26/18 15:41 Metoprolol Tartrate (Lopressor) 5 mg IV Q5M PRN PRN Reason: Tachycardia Stop: 08/26/18 10:08 Last Admin: 07/27/18 22:56 Dose: 5 mg Documented by: Ondansetron HCl (Zofran) 4 mg IV Q6H PRN PRN Reason: Nausea Stop: 08/26/18 15:41 Prednisone (Prednisone) 5 mg PO DAILY [facility] Stop: 08/27/18 08:59 Last Admin: 07/28/18 08:00 Dose: 5 mg Documented by:
[2018-07-28 16:32] LABS: Partial Thromboplastin Ratio 1.8
[2018-07-28] MEDS: METOPROLOL TARTRATE 25 MG TAB PO SCH ×2 (16:40→20:17)
[2018-07-28] MEDS: cefTRIAXone SODIUM 1,000 MG in DEXTROSE 5% 50 ML IV SCH (16:40)
--- NOTE | 2018-07-28 16:44 | Hospitalist Progress Note ---
Date of Service July 28, 2018 Assessment & Plan (1) Atrial flutter with rapid ventricular response: Atrial flutter with rapid ventricular response: 77-year-old male with history of prostate cancer, Parkinson's disease, a flutter, cardia myopathy, admitted on Julybecause of a flutter with rapid ventricle response became hypotensive with intravenous diltiazem and metoprolol. Later amiodarone was started upon admission Talk to cardiology this morning, who recommend transesophageal echo recommended prior to cardioversion. Recommend from cardiology, has discont amiodarone, started heparin drip. Has give 1 dose of loading dose of dig digoxin and a second dose of DHE was given, patient heart rate still high at 130 however is asymptomatic, Cardiology continue is following Highly complex medical issues. Need to follow-up echo results, (2) PNA (pneumonia): Possible pneumonia which is supported on CXR and CTA Failed outpt abx/steroids Started on zosyn in the ED, changed to ceftriaxone/azithromycin, will continue ?? of aspiration, pt relates hx of some coughing/choking with swallowing Need to follow-up ST eval continue steroids as PO as at home (3) Parkinson disease: continue home meds (4) Anxiety: continue home meds (5) Prostate cancer: Remote hx, no current tx (6) DVT prophylaxis: SCDs, Heparin for DVT proph Has discussed with patient and registered nurse about condition and care plan, answered all questions Subjective Generally feeling okay, Denies palpitation, denies chest pain or difficulty breathing, Denies fever and chills, Review of Systems Constitutional: Positive weakness, or fatigue Respiratory: no cough, sputum, wheezing, or dyspnea on exertion Cardiac: No chest pain, No orthopnea, Abdomen: No pain, No nausea, No vomiting, No diarrhea, Musculoskeletal: No joint pain, No muscle pain, No swelling, : No dysuria, No urinary frequency, No incontinence, No hematuria Neurologic: No paralysis, No weakness, No numbness/tingling, Psychiatric: No depression symptoms, No anhedonism, No anxiety, Heme: No abnormal bleeding/bruising, No clotting problems, No swollen lymph nodes, No night sweats Skin: No rash, No itch, No new/changing skin lesions, No color change, No bleeding Physical Exam Vital Signs (Past 24 Hours): Last Vital Signs Temp 36.3 C L 04/09/19 15:19 Pulse 135 H 07/28/18 15:19 Resp 20 07/28/18 15:19 BP 96/66 L 07/28/18 15:19 Pulse Ox 92 07/28/18 15:19 Physical Exam: General Appearance: WD/WN, no apparent distress, Eyes: normal inspection, PERRL, EOMI, sclerae normal ENT: normal ENT inspection, hearing grossly normal, pharynx normal Neck: supple, no adenopathy, thyroid normal, no JVD, no carotid bruits, trachea midline Respiratory/Chest: chest non-tender, normal breath sounds, no respiratory distress, no accessory muscle use, breath sounds, rales, wheezing Cardiovascular: irregular rate, rhythm, no JVD, no murmur Abdomen: normal bowel sounds, non tender, soft, no organomegaly, Extremities: normal range of motion, non-tender, normal inspection, no pedal edema, no calf tenderness, normal capillary refill, pelvis stable, joint has no limited range of motion, capillary refill is normal, no cyanosis clubbing Neurologic/Psychiatric: charter representative II-XII nml as tested, no motor/sensory deficits, alert, normal mood/affect, oriented x 3 Skin: normal color, warm/dry, no rash Lymphatic: no adenopathy Results & Data Laboratory Results Laboratory Results - last 24 hr 07/27/18 07/27/18 07/28/18 16:59 21:36 06:10 WBC 11.25 H RBC 3.71 L Hgb 11.8 L Hct 35.4 L MCV 95.4 MCH 31.8 MCHC 33.3 RDW Std Deviation 47.1 H RDW Coeff of Zulma 13.4 Plt Count 248 MPV 9.6 Immature Gran % (Auto) 0.3 Neut % (Auto) 70.5 Lymph % (Auto) 10.4 [place] % (Auto) 10.0 Eos % (Auto) 8.4 Baso % (Auto) 0.4 Immature Gran # (Auto) 0.03 H Neut # (Auto) 7.93 H Lymph # (Auto) 1.17 L [place] # (Auto) 1.13 H Eos # (Auto) 0.95 H Baso # (Auto) 0.04 Sodium Potassium Chloride Carbon Dioxide Anion Gap BUN Creatinine Est Cr Clr Drug Dosing Est GFR ( Amer) Est GFR (Non-Af Amer) BUN/Creatinine Ratio Glucose Calcium Troponin I < 0.015 < 0.015 07/28/18 06:10 WBC RBC Hgb Hct MCV MCH MCHC RDW Std Deviation RDW Coeff of Zulma Plt Count MPV Immature Gran % (Auto) Neut % (Auto) Lymph % (Auto) [place] % (Auto) Eos % (Auto) Baso % (Auto) Immature Gran # (Auto) Neut # (Auto) Lymph # (Auto) [place] # (Auto) Eos # (Auto) Baso # (Auto) Sodium 139 Potassium 4.0 Chloride 109 H Carbon Dioxide 25 Anion Gap 5.0 BUN 19 H Creatinine 0.87 Est Cr Clr Drug Dosing 79.2 Est GFR ( Amer) 95.1 Est GFR (Non-Af Amer) 82.1 BUN/Creatinine Ratio 22.0 H Glucose 120 H Calcium 8.0 L Troponin I (1) PNA (pneumonia) Laterality: right Lung location: middle lobe of lung Pneumonia type: due to unspecified organism Qualified Code(s): J18.1 - Lobar pneumonia, unspecified organism
[2018-07-28] MEDS: AZITHROMYCIN 250 MG in DEXTROSE 5% 250 ML IV SCH (17:17)
[2018-07-29] MEDS: SODIUM CHLORIDE 0.9% 1000ML 1,000 ML IV SCH ×2 (01:35→09:29)
[2018-07-29] MEDS: HEPARIN SODIUM/DEXTROSE 25,000 UNITS/500 ML BAG IV SCH ×2 (03:11→19:55)
[2018-07-29] MEDS: CARBIDOPA/LEVODOPA 25/100MG EXT REL TAB PO SCH ×4 (05:48→17:11)
[2018-07-29] MEDS ORDERED: BENZOCAIN/TETRACA/BUTAM SPRAY 200 APPLN/20 GM SPRY EXT ONE (07:25)
[2018-07-29 07:33] LABS: Magnesium 2.2 mg/dl (1.8-2.4); Phosphorus 2.2 mg/dl (2.5-4.9)
[2018-07-29 07:38] LABS: Partial Thromboplastin Ratio 1.8
[2018-07-29 07:42] LABS: Partial Thromboplastin Time 49.1 Seconds (21.0-31.0)
--- NOTE | 2018-07-29 07:50 | Cardioversion ---
Date of Service July 29, 2018 Electrical Cardioversion Rpt Electrical Cardioversion Report Procedure: DC cardioversion Indications: Atrial flutter with rapid ventricular response Consent: Informed consent was obtained. Sedation: Provided by anesthesiology. Procedural details: After a time-out procedure was performed and his throat was anesthetized with Cetacaine spray, transesophageal echo was performed which demonstrated no left atrial appendage thrombus. (MILAD report under separate cover.) Then in a synchronized fashion, 100 joules was used to successfully convert atrial flutter with rapid ventricular response to sinus rhythm. He tolerated the procedure well without known complication. Plan: 1. Continue anticoagulation without interruption for at least 4 weeks, but indicated indefinitely.
--- NOTE | 2018-07-29 08:00 | Anesthesiology Progress Note ---
Date of Service July 29, 2018 Anesthesia Post Procedure Vital Signs Vital Signs: Temp Pulse Pulse Resp BP Pulse Ox 07/29/18 03:43 98.2 F 128 H 18 105/68 94 07/28/18 23:15 98.4 F 112 H 18 104/72 90 07/28/18 19:29 97.5 F L 102 H 18 121/70 91 07/28/18 15:19 97.3 F L 135 H 20 96/66 L 92 07/28/18 13:57 134 H 07/28/18 11:40 97.5 F L 134 H 18 115/79 93 07/28/18 10:07 130 H Notes Mental Status: alert / awake / arousable and participated in evaluation Patient Amnestic to Procedure: Yes Nausea / Vomiting: adequately controlled Pain: adequately controlled Airway Patency, RR, SpO2: stable & adequate BP & HR: stable & adequate Hydration State: stable & adequate Anesthetic Complications: no major complications apparent and Pt Satisfied with anesthetic care
[2018-07-29] MEDS: METOPROLOL TARTRATE 25 MG TAB PO SCH ×2 (08:26→19:55)
[2018-07-29] MEDS: predniSONE 5 MG TAB PO SCH (08:26)
[2018-07-29] MEDS: guaiFENesin 600 MG TABCR PO SCH ×2 (12:39→19:55)
--- NOTE | 2018-07-29 14:42 | Cardiology Progress Note ---
Date of Service July 29, 2018 Assessment & Plan (1) Atrial flutter with rapid ventricular response: He underwent successful cardioversion earlier today and remains in sinus rhythm. Continue beta-geoff in the form of metoprolol. Continue anticoagulation for stroke risk reduction. When discharged, he can be sent home on a novel agent. Monitor for bleeding. He was asymptomatic from atrial flutter. Atrial flutter likely caused mildly reduced LV systolic function. We discussed potential initiation of anti rhythmic therapy but he prefers to avoid for now and would consider anti rhythmic therapy if he has recurrent atrial flutter. (2) Cardiomyopathy: Likely due to tachycardia. Repeat echo as an outpatient. Metoprolol succinate 50 mg once daily tomorrow in place of metoprolol tartrate. He appears euvolemic. (3) Pericardial effusion: He does not appear to be in tamponade clinically. This can be monitored as an outpatient with repeat echo. Close monitoring recommended. (4) Dyspnea on exertion: He denies shortness of breath and feels no different now that he is in sinus rhythm. Dyspnea with exertion may have been due to rapid heart rate while in atrial flutter but also could be secondary to pneumonitis and possible aspiration issues as he has abnormal CT scan. Hopefully he feels improvement with ambulation. He appears euvolemic. As per primary service. Disposition: Patient care was discussed with Dr. Lewis, primary hospitalist. Please call with any other questions or concerns. Subjective He was seen early this morning prior to cardioversion and transesophageal echo. He was once again seen following the procedure for full evaluation. He does not feel any different following cardioversion. He denies chest pain, shortness of breath, syncope, near-syncope, palpitations, bleeding, or edema. He feels tired but states that he did not sleep much at all last night. He felt tired prior to the transesophageal echo and cardioversion as well. His accompanied him at the bedside. Review of systems: As above. Physical Exam Vital Signs (Past 24 Hours): Last Vital Signs Temp 36.4 C L 07/29/18 11:59 Pulse 85 07/29/18 11:59 Resp 18 07/29/18 11:59 BP 102/63 07/29/18 11:59 Pulse Ox 94 07/29/18 11:59 Physical Exam: Gen.: No acute distress. Alert. HEENT: Anicteric sclera. Neck: No JVD. Cardiac: Regular. Normal S1-S2. No murmurs, rubs, or gallops. Pulmonary: Clear to auscultation bilaterally without wheezes, rales, or rhonchi. Abdomen: Soft, nontender, nondistended, with normoactive bowel sounds. No bruits noted. Extremities: No edema or cyanosis. Psychiatric: Affect appears appropriate. Results & Data Laboratory Results Laboratory Results - last 24 hr 07/28/18 07/29/18 07/29/18 16:01 06:46 06:46 APTT 50.0 H* 49.1 H* PTT Ratio 1.8 1.8 POC Glucose Phosphorus 2.2 L Magnesium 2.2 07/29/18 10:55 APTT PTT Ratio POC Glucose 122 H Phosphorus Magnesium Diagnostic Findings MILAD 07/29/2018: Mildly reduced LV systolic function. Global hypokinesis. Estimated EF 45%. No left atrial appendage thrombus. Mild MR. Cardioversion 07/29/2018: Successfully converted from atrial flutter to sinus rhythm with 100 joules in a synchronized fashion. Telemetry personally reviewed: Atrial flutter prior to cardioversion. Since then, sinus rhythm. ECG personally reviewed: ECG [id number]: Atrial flutter 135 bpm. ECG 07/29/2018 at 7:46 a.m.: Sinus rhythm 86 bpm. Nonspecific T-wave abnormality. Medications Administered Current Inpatient Medications Acetaminophen (Tylenol) 650 mg PO Q4H PRN PRN Reason: Pain or Fever Stop: 08/26/18 15:41 Carbidopa/Levodopa (Sinement Cr 25/100mg) 2 tab PO DAILY@0700,1200,1800 [facility] Stop: 08/26/18 17:59 Last Admin: 07/29/18 12:37 Dose: 2 tab Documented by: Clonazepam (Klonopin) 0.25 mg PO HS PRN PRN Reason: Anxiety Stop: 08/26/18 15:41 Guaifenesin (Mucinex) 1,200 mg PO Q12 [facility] Stop: 08/28/18 08:59 Last Admin: 07/29/18 12:39 Dose: 1,200 mg Documented by: Ceftriaxone Sodium 1,000 mg/ (Dextrose) 50 mls @ 100 mls/hr IV Q24H [facility]; Protocol Stop: 08/03/18 16:29 Last Infusion: 04/09/19 17:24 Dose: Infused Documented by: Azithromycin 250 mg/ Dextrose 252.5 mls @ 125 mls/hr IV Q24H [facility] Stop: 08/03/18 16:59 Last Infusion: 07/28/18 20:15 Dose: Infused Documented by: Heparin Sodium/Dextrose (Heparin Sodium/Dextrose) 25,000 units in 500 mls @ 29 mls/hr IV .[id number] [facility]; Protocol Stop: 08/27/18 09:59 Last Titration: 07/29/18 08:10 Dose: 1,450 units/hr, 29 mls/hr Documented by: Ioversol (Optiray 320 125ml) 120 ml IV ONCE PRN PRN Reason: Interaction Checking Stop: 07/31/18 11:35 Last Admin: 07/27/18 11:36 Dose: 120 ml Documented by: Magnesium Hydroxide (Milk Of Magnesia) 30 ml PO Q12H PRN PRN Reason: Constipation Stop: 08/26/18 15:41 Metoprolol Succinate (Toprol Xl) 50 mg PO QAM [facility] Stop: 08/29/18 08:59 Metoprolol Tartrate (Lopressor) 5 mg IV Q5M PRN PRN Reason: Tachycardia Stop: 08/26/18 10:08 Last Admin: 07/27/18 22:56 Dose: 5 mg Documented by: Metoprolol Tartrate (Lopressor) 25 mg PO BID [facility] Stop: 07/29/18 23:00 Last Admin: 07/29/18 08:26 Dose: 25 mg Documented by: Ondansetron HCl (Zofran) 4 mg IV Q6H PRN PRN Reason: Nausea Stop: 08/26/18 15:41 Prednisone (Prednisone) 5 mg PO DAILY [facility] Stop: 08/27/18 08:59 Last Admin: 07/29/18 08:26 Dose: 5 mg Documented by:
[2018-07-29] MEDS: cefTRIAXone SODIUM 1,000 MG in DEXTROSE 5% 50 ML IV SCH (16:14)
--- NOTE | 2018-07-29 17:07 | Hospitalist Progress Note ---
Date of Service July 29, 2018 Assessment & Plan (1) Atrial flutter with rapid ventricular response: Became hypotensive with intravenous diltiazem and metoprolol. Cardioverted on 07/29 after a MILAD with cardiology. - Continue anticoagulation on discharge - Continue beta-geoff (2) PNA (pneumonia): CTA chest on 07/27 showed extensive right lobe pneumonia vs. aspiration pneumonitis. Also shows mucus plugging and possible hilar mass/malignancy. SHEETFED PRESS OPERATOR saw the patient on 07/29 and cleared him for a diet. Failed outpatient antibiotics. - Continue CAP abx - Started guaifenasin for continued thick secretions - Pulm consult (3) Parkinson disease: No major inpatient concerns. - Continue home meds (4) Anxiety: - Continue home meds (5) DVT prophylaxis: Heparin gtt for his aflutter Subjective Feels fairly fatigued, but otherwise ok. Reports no fevers/chills, chest pain, shortness of breath, abdominal pain, nausea, or vomiting. Physical Exam Vital Signs (Past 24 Hours): Last Vital Signs Temp 36.5 C 07/29/18 15:46 Pulse 87 07/29/18 16:00 Resp 20 07/29/18 15:46 BP 117/74 07/29/18 15:46 Pulse Ox 95 07/29/18 15:46 Constitutional: WD/WN, vitals as above Eyes: normal visual jimenez by confrontation and + anicteric sclerae Neck: normal visual inspection and trachea midline Respiratory: normal respiratory effort; no respiratory distress Auscultation: + crackles Cardiovascular: Rate/Rhythm: regular rhythm Gastrointestinal (Abdomen): Inspection/Auscultation: abdomen not distended Percussion/Palpation: abdomen soft; abdomen nontender Musculoskeletal: Head/Neck/Chest: normocephalic and head atraumatic Skin: no rashes, warm and dry Neurologic: awake; not confused Speech / Cognition: normal speech Psychiatric: A+Ox3, euthymic affect (1) PNA (pneumonia) Laterality: right Lung location: middle lobe of lung Pneumonia type: due to unspecified organism Qualified Code(s): J18.1 - Lobar pneumonia, unspecified organism
[2018-07-29] MEDS: AZITHROMYCIN 250 MG in DEXTROSE 5% 250 ML IV SCH (17:11)
[2018-07-30] MEDS ORDERED: ALBUTEROL 0.083% NEBU SOLN 3 ML VIAL NEB PRN (00:19)
--- NOTE | 2018-07-30 02:05 | Consultation Report ---
DATE OF CONSULTATION: 07/29/2018 REASON FOR CONSULTATION: Rule out pneumonia. HISTORY OF PRESENT ILLNESS: A 77-year-old white male whose primary care provider is Dr. Brian Yan/Phyllis Veras was admitted on 07/27/2018 from his primary care office with atrial flutter. He has been given antibiotics for chest congestion as well as steroid therapy. He has become easily fatigued and short of breath and his who was sitting at bedside states he has trouble with swallowing and choking at times. 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 He is currently on carbidopa-levodopa for parkinsonism. CT on admission showed cardiomegaly with chronic interstitial lung disease and no evidence of pulmonary thromboembolic disease, small right pleural effusion with extensive consolidation and ground-glass densities involving all lobes of the right lung are noted and right hilar fullness with narrowing of the bronchus intermedius, right middle and lower lobe bronchi with multifocal mucus plugging seen. Paratracheal, subcarinal and right hilar adenopathy are seen with mild interlobar septal thickening and prior granulomatous disease suggested. Echocardiogram on admission showed LVEF of 40%-45%. The patient was seen by Dr. Waters yesterday as the patient became hypotensive while being treated with intravenous diltiazem and metoprolol. Digoxin was recommended and rate control for his atrial flutter was the goal. Electrical cardioversion has been recommended as well but not felt to be emergent. He has been placed on amiodarone but a MILAD has been recommended to evaluate the atrial appendage thrombus and in the meantime, he has been placed on IV heparin. The patient has a history of parkinsonism, AAA that was repaired in 2008 and prostate cancer. The patient has been on doxycycline and prednisone as well as Augmentin for his cough. He has had some mild hemoptysis. The amiodarone was just started during this hospital stay. He lives with his and son who lives nearby. He is retired from a [employer] bank. PHYSICAL EXAMINATION: GENERAL: Reveals a well-developed elderly white male, difficult to understand from a verbal standpoint, but in no obvious distress from a pulmonary standpoint. VITAL SIGNS: Blood pressure 117/74, pulse 87 and reg, respiratory rate 20, temperature 36.5, O2 sat 95% on room air. SKIN: Warm and dry. HEENT: Atraumatic, normocephalic, PERRLA, EOMI. Conjunctivae pink. CARDIAC: Regular rate and rhythm. No murmurs or gallops. PMI nondisplaced. ABDOMEN: Soft, scaphoid. No evidence of hepatosplenomegaly. EXTREMITIES: No significant pedal edema, clubbing or cyanosis. NEUROLOGIC: Intact. The patient underwent cardioversion successfully this morning to sinus rhythm. Continues on anticoagulation. It was felt that his atrial flutter was caused by the reduced LV systolic function. He does have a small pericardial effusion with no evidence of tamponade physiology clinically. There is a concern about aspiration. LABORATORY DATA: CTA of the chest as noted. See HPI. Blood cultures negative. White count 11,000; H and H 11.8 and 35; PTT/INR 1.8. OVERALL ASSESSMENT: A 77-year-old white male with chronic obstructive pulmonary disease as well as interstitial lung disease with right-sided pneumonia, most probably from aspiration pneumonia, but also with worrisome evidence for significant right paratracheal, mediastinal and subcarinal lymphadenopathy. 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 There is also extensive consolidation involving the right lung with mucus plugging as well. I suspect an underlying neoplasm. At this point in time, I would like to discuss with cardiology and his hospitalist group service about the patient undergoing bronchoscopic evaluation at some point for diagnosis and pulmonary toilet. I suspect his atrial flutter is the result of his significant chronic obstructive pulmonary disease and what may very well represent underlying bronchogenic neoplasm with postobstructive symptomatology and/or a combination of aspiration pneumonia. MTDD
[2018-07-30] MEDS: CARBIDOPA/LEVODOPA 25/100MG EXT REL TAB PO SCH ×3 (06:28→17:31)
[2018-07-30 07:12] LABS: Hematocrit (blood only) 33.4 % (42-52); Mean Corpuscular Hgb Conc 32.9 g/dL (32-36); Mean Platelet Volume 10.1 fL (7.4-10.4); Platelet Count 236 K/uL (130-400); RDW Coefficient of Variation 13.4 % (11.5-14.5); RDW Standard Deviation 46.5 fL (36.4-46.3); Red Blood Count 3.48 M/uL (4.7-6.1); White Blood Count 12.96 K/uL (4.8-10.8)
[2018-07-30 07:32] LABS: Partial Thromboplastin Ratio 1.6; Partial Thromboplastin Time 43.9 Seconds (21.0-31.0)
[2018-07-30 07:36] LABS: Calcium 8.3 mg/dl (8.5-10.1); Creatinine Clr Calc Pharmacy 91.2 ml/min; Est GFR (African American) 99.5; Est GFR (Non-African American) 85.9; Magnesium 2.2 mg/dl (1.8-2.4)
[2018-07-30] MEDS: predniSONE 5 MG TAB PO SCH (07:53)
[2018-07-30] MEDS: guaiFENesin 600 MG TABCR PO SCH ×2 (07:53→20:15)
[2018-07-30] MEDS: METOPROLOL SUCC 50MG EXT REL TAB PO SCH (07:54)
[2018-07-30] MEDS ORDERED: Nursing to Pharmacy Communication ONE (08:11)
[2018-07-30] MEDS ORDERED: HEPARIN IV BOLUS 3,000 UNITS in SYRINGE 0 ML IV ONE (08:30)
[2018-07-30] MEDS: HEPARIN SODIUM/DEXTROSE 25,000 UNITS/500 ML BAG IV SCH (11:55)
--- NOTE | 2018-07-30 12:58 | Cardiology Progress Note ---
Date of Service July 30, 2018 Assessment & Plan (1) Atrial flutter with rapid ventricular response: He underwent successful cardioversion on 07/29/2018. He remains in sinus rhythm. Continue beta-geoff in the form of metoprolol. Continue anticoagulation for stroke risk reduction. When discharged, he can be sent home on a novel agent. Monitor for bleeding. He was asymptomatic from atrial flutter. Atrial flutter likely caused mildly reduced LV systolic function. We discussed potential initiation of anti rhythmic therapy but he prefers to avoid for now and would consider anti rhythmic therapy if he has recurrent atrial flutter. (2) Cardiomyopathy: Likely due to tachycardia. Repeat echo as an outpatient would follows up as an outpatient. Continue Metoprolol succinate 50 mg once daily. He appears euvolemic. (3) Pericardial effusion: Follow-up as an outpatient with limited echo. He is asymptomatic. Clinically, he is not in tamponade. (4) Dyspnea on exertion: He has dyspnea with exertion, which is likely secondary to pulmonary process. Dr. Madera of pulmonology is following. Disposition: Patient care was discussed with Dr. Lewis, primary hospitalist. Please call with any other questions or concerns. Outpatient follow-up with Cardiology is being arranged by Cardiology office in the next 1-2 weeks, with ECG and limited echo. Subjective He denies chest pain or palpitations. He has dyspnea with exertion but no shortness of breath at rest or orthopnea. He denies edema or bleeding such as melena, hematochezia, or hematuria. He was seen by Dr. Madera with further testing pending. Review of systems: As above. Physical Exam Vital Signs (Past 24 Hours): Last Vital Signs Temp 36.6 C 07/30/18 11:33 Pulse 82 07/30/18 11:33 Resp 18 07/30/18 11:33 BP 120/73 07/30/18 11:33 Pulse Ox 94 07/30/18 11:33 Physical Exam: Gen.: No acute distress. Alert. HEENT: Anicteric sclera. Neck: No JVD. Cardiac: Regular. Normal S1-S2. No murmurs, rubs, or gallops. Pulmonary: Decreased breath sounds at the right base, otherwise clear. Abdomen: Soft, nontender, nondistended, with normoactive bowel sounds. No bruits noted. Extremities: No edema or cyanosis. Psychiatric: Affect appears appropriate. Results & Data Laboratory Results Laboratory Results - last 24 hr 07/30/18 07/30/18 07/30/18 06:40 06:40 06:40 WBC 12.96 H RBC 3.48 L Hgb 11.0 L Hct 33.4 L MCV 96.0 MCH 31.6 MCHC 32.9 RDW Std Deviation 46.5 H RDW Coeff of Zulma 13.4 Plt Count 236 MPV 10.1 APTT 43.9 H PTT Ratio 1.6 Sodium 138 Potassium 4.0 Chloride 108 H Carbon Dioxide 23 Anion Gap 7.0 BUN 12 Creatinine 0.78 Est Cr Clr Drug Dosing 91.2 Est GFR ( Amer) 99.5 Est GFR (Non-Af Amer) 85.9 BUN/Creatinine Ratio 16.0 Glucose 113 H Calcium 8.3 L Magnesium 2.2 Diagnostic Findings Telemetry personally reviewed: Sinus rhythm. Medications Administered Current Inpatient Medications Acetaminophen (Tylenol) 650 mg PO Q4H PRN PRN Reason: Pain or Fever Stop: 08/26/18 15:41 Albuterol (Ventolin 0.083% 2.5mg/3ml) 2.5 mg NEB Q6R PRN PRN Reason: Shortness Of Breath Stop: 08/29/18 00:18 Carbidopa/Levodopa (Sinement Cr 25/100mg) 2 tab PO DAILY@0700,1200,1800 [facility] Stop: 08/26/18 17:59 Last Admin: 07/30/18 11:08 Dose: 2 tab Documented by: Clonazepam (Klonopin) 0.25 mg PO HS PRN PRN Reason: Anxiety Stop: 08/26/18 15:41 Guaifenesin (Mucinex) 1,200 mg PO Q12 [facility] Stop: 08/28/18 08:59 Last Admin: 07/30/18 07:53 Dose: 1,200 mg Documented by: Ceftriaxone Sodium 1,000 mg/ (Dextrose) 50 mls @ 100 mls/hr IV Q24H [facility]; Protocol Stop: 08/03/18 16:29 Last Infusion: 07/29/18 17:08 Dose: Infused Documented by: Azithromycin 250 mg/ Dextrose 252.5 mls @ 125 mls/hr IV Q24H [facility] Stop: 08/03/18 16:59 Last Infusion: 07/29/18 19:20 Dose: Infused Documented by: Heparin Sodium/Dextrose (Heparin Sodium/Dextrose) 25,000 units in 500 mls @ 32 mls/hr IV .[id number] [facility]; Protocol Stop: 08/27/18 09:59 Last Admin: 07/30/18 11:55 Dose: 1,600 units/hr, 32 mls/hr Documented by: Ioversol (Optiray 320 125ml) 120 ml IV ONCE PRN PRN Reason: Interaction Checking Stop: 07/31/18 11:35 Last Admin: 07/27/18 11:36 Dose: 120 ml Documented by: Magnesium Hydroxide (Milk Of Magnesia) 30 ml PO Q12H PRN PRN Reason: Constipation Stop: 08/26/18 15:41 Metoprolol Succinate (Toprol Xl) 50 mg PO QAM [facility] Stop: 08/29/18 08:59 Last Admin: 07/30/18 07:54 Dose: 50 mg Documented by: Metoprolol Tartrate (Lopressor) 5 mg IV Q5M PRN PRN Reason: Tachycardia Stop: 08/26/18 10:08 Last Admin: 07/27/18 22:56 Dose: 5 mg Documented by: Ondansetron HCl (Zofran) 4 mg IV Q6H PRN PRN Reason: Nausea Stop: 08/26/18 15:41 Prednisone (Prednisone) 5 mg PO DAILY [facility] Stop: 08/27/18 08:59 Last Admin: 07/30/18 07:53 Dose: 5 mg Documented by:
[2018-07-30 13:54] LABS: Partial Thromboplastin Ratio 1.9
[2018-07-30 13:55] LABS: Partial Thromboplastin Time 52.8 Seconds (21.0-31.0)
--- NOTE | 2018-07-30 14:40 | Hospitalist Progress Note ---
Date of Service July 30, 2018 Assessment & Plan (1) Atrial flutter with rapid ventricular response: Became hypotensive with intravenous diltiazem and metoprolol. Cardioverted on 07/29 after a MILAD with cardiology. - Continue anticoagulation - Currently on heparin gtt - Plan to pause it at midnight for bronch with pulm on 07/31 - Can discharge on novel agent - Continue beta-geoff (2) PNA (pneumonia): CTA chest on 07/27 showed extensive right lobe pneumonia vs. aspiration pneumonitis. Also shows mucus plugging and possible hilar mass/malignancy. BUSINESS PROJECT MANAGER saw the patient on 07/29 and cleared him for a diet. Failed outpatient antibiotics. - Continue CAP abx - Started guaifenesin for continued thick secretions - Pulm consult - Concern for malignancy. Plan for bronch on 07/[address] Madera. (3) Parkinson disease: No major inpatient concerns. - Continue home meds (4) Anxiety: - Continue home meds (5) DVT prophylaxis: Heparin gtt for his aflutter Subjective Feels fairly fatigued, but otherwise ok. He is somewhat upset about his possible bronch because he feels it has been sprung on him. Reports no fevers/chills, chest pain, shortness of breath, abdominal pain, nausea, or vomiting. Physical Exam Vital Signs (Past 24 Hours): Last Vital Signs Temp 36.6 C 07/30/18 11:33 Pulse 82 07/30/18 11:33 Resp 18 07/30/18 11:33 BP 120/73 07/30/18 11:33 Pulse Ox 94 07/30/18 11:33 Constitutional: WD/WN, vitals as above Eyes: normal visual jimenez by confrontation and + anicteric sclerae Neck: normal visual inspection and trachea midline Respiratory: normal respiratory effort; no respiratory distress Auscultation: + crackles Cardiovascular: Rate/Rhythm: regular rhythm Gastrointestinal (Abdomen): Inspection/Auscultation: abdomen not distended Percussion/Palpation: abdomen soft; abdomen nontender Musculoskeletal: Head/Neck/Chest: normocephalic and head atraumatic Skin: no rashes, warm and dry Neurologic: awake; not confused Speech / Cognition: normal speech Psychiatric: A+Ox3, euthymic affect (1) PNA (pneumonia) Laterality: right Lung location: middle lobe of lung Pneumonia type: due to unspecified organism Qualified Code(s): J18.1 - Lobar pneumonia, unspecified organism
[2018-07-30] MEDS: cefTRIAXone SODIUM 1,000 MG in DEXTROSE 5% 50 ML IV SCH (15:33)
[2018-07-30] MEDS: AZITHROMYCIN 250 MG in DEXTROSE 5% 250 ML IV SCH (16:06)
--- NOTE | 2018-07-30 20:32 | Progress Note ---
DATE: 07/30/2018 PULMONARY MEDICINE PROGRESS NOTE TIME: 1400 hours. Chart reviewed, patient examined and assessed. SUBJECTIVE: The patient is still somewhat congested. My concern is that due to his parkinsonism, he is chronically aspirating. He is aware of my concerns. OBJECTIVE: CURRENT VITAL SIGNS: Blood pressure 112/68, pulse 78 and regular, respiratory rate 18, temperature 36.4. O2 sat 93% on room air. SKIN: Warm and dry. HEENT: Atraumatic, normocephalic, PERRLA, EOMI. Conjunctivae pink. Sclerae not icteric. Fundi poorly visualized. NECK: Neck veins are not distended at 45 degrees. LYMPHATICS: No adenopathy in the supra or infraclavicular areas. LUNGS: Coarse rhonchi, right base. CARDIAC: Regular rate and rhythm. I do not appreciate a gallop. ABDOMEN: Soft, protuberant. EXTREMITIES: No pedal edema, clubbing, or cyanosis. NEUROLOGIC: Intact. No lateralizing signs. LABORATORY DATA: White count 12,000, H and H of 11 and 33. PTT, INR 1.9, BUN and creatinine acceptable at 12 and 0.7. IMAGING DATA: CTA once again reviewed and discussed at my initial consultation and shows cardiomegaly with chronic interstitial lung disease. No evidence of pulmonary thromboembolic disease. There is a small right pleural effusion, but extensive consolidation and ground-glass densities are seen throughout the right lung, especially in the right lower lobe and right hilar fullness with narrowing of the bronchus intermedius. Right middle and lower lobe bronchi are noted with multifocal mucus plugging. Cannot rule out a neoplastic process. OVERALL ASSESSMENT AND PLAN: A 77-year-old with parkinsonism, atrial flutter status post cardioversion on 07/29/2018, currently on IV heparin, scheduled for bronchoscopic intervention tomorrow. Will hold IV heparin at midnight tonight and check PTT in the morning prior to procedure.
[2018-07-31 05:40] LABS: Hematocrit (blood only) 32.8 % (42-52); Hemoglobin 10.7 g/dL (14.0-18.0); Mean Corpuscular Hgb Conc 32.6 g/dL (32-36); Mean Corpuscular Volume 96.5 fL (80-100); Mean Platelet Volume 9.8 fL (7.4-10.4); Platelet Count 223 K/uL (130-400); RDW Coefficient of Variation 13.4 % (11.5-14.5); RDW Standard Deviation 47.4 fL (36.4-46.3); White Blood Count 12.57 K/uL (4.8-10.8)
[2018-07-31 06:08] LABS: Partial Thromboplastin Time 27.3 Seconds (21.0-31.0)
[2018-07-31 06:11] LABS: Calcium 8.5 mg/dl (8.5-10.1); Creatinine Clr Calc Pharmacy 80.9 ml/min; Est GFR (African American) 95.1; Est GFR (Non-African American) 82.1; Magnesium 2.1 mg/dl (1.8-2.4); Potassium 3.7 mmol/L (3.5-5.1)
[2018-07-31] MEDS: CARBIDOPA/LEVODOPA 25/100MG EXT REL TAB PO SCH ×3 (06:19→16:51)
[2018-07-31] MEDS ORDERED: PIPERACILL/TAZOBAC CONSULT ACTIVE PRN (09:38)
[2018-07-31] MEDS ORDERED: PIPERACILLIN/TAZOBACTAM 3.375 GM in DEXTROSE 5% 100 ML IV ONE (10:00)
--- NOTE | 2018-07-31 11:23 | Pre Anesthesia Assessment ---
Date of Service July 31, 2018 Pre Sedation Assessment Vital Signs Temp Pulse Resp BP BP Pulse Ox 07/31/18 07:47 36.6 C 82 19 125/75 95 07/31/18 03:16 36.7 C 86 23 114/68 91 07/30/18 23:43 36.4 C L 84 19 127/71 92 07/30/18 19:45 36.7 C 84 18 122/72 92 07/30/18 15:26 36.4 C L 78 18 112/68 93 07/30/18 11:33 36.6 C 82 18 120/73 94 Cardiovascular RRR, no murmur, no edema + peripheral pulses normal Respiratory normal respiratory effort, lungs clear to auscultation Pre-Sedation Airway Assessment Smoking Status: Former smoker Hx Sleep Apnea: No Short, Thick Neck: No Thyromental Distance: < 3.5 Finger Breadths Oral Cavity: + Dentures Mallampati Class: III ASA: ASA2 NPO Status Date of Last Intake of Fluids: 07/31/18 Time of Last Intake of Fluids: 00:00 Last Oral Intake of Fluids Comment: no medication this am. Date of Last Intake of Solid Food: 07/31/18 Time of Last Intake of Solid Foods: 00:00 Notes The planned sedation has been discussed with the patient. Informed Consent was obtained. I have identified the patient, determined the appropriateness of sedation and have assessed the patient immediately prior to the procedure. All medicine(s) and interventions are by my order.
--- NOTE | 2018-07-31 11:23 | History & Physical Bridge Note ---
Date of Service July 31, 2018 History & Physical Bridge Note I have examined the patient, reviewed the History & Physical and in the interval since the performance of the History & Physical I have noted the following changes of clinical significance: no changes noted
[2018-07-31] MEDS ORDERED: OXYMETAZOLINE 0.05% 30 ML BTL ONE (11:39)
[2018-07-31] MEDS ORDERED: LIDOCAINE 4% INH SOLN 4 ML BTL INH ONE (11:40)
[2018-07-31] MEDS ORDERED: LEVALBUTEROL HCL 1.25 MG/3 ML NEB NEB STA (11:52)
[2018-07-31] MEDS ORDERED: fentaNYL citrate 100 MCG/2 ML VIAL IV ONE (11:52)
[2018-07-31] MEDS ORDERED: LIDOCAINE HCL VISCOUS SOLN 2% 15 ML UDC MT ONE (11:52)
[2018-07-31] MEDS ORDERED: MIDAZOLAM HCL 1 MG/ML 2ML VIAL IV ONE (11:53)
[2018-07-31] MEDS ORDERED: LIDOCAINE HCL 2% (LOCAL) INJ 50 ML VIAL INSTIL SCH (12:00)
--- NOTE | 2018-07-31 12:13 | Post Operative Brief Note ---
Immediate Post Op Note v1 Date of Surgery July 31, 2018 Pre & Post Diagnosis Operation Date: 07/29/18 07:30 <No data on this case meets the specified criteria> Operation Date: 07/31/18 11:00 Pre-Op Diagnosis: aspiration Post-Op Diagnosis: aspiration/R/O bronchogenic neoplasm Procedure Operation Date: 07/29/18 07:30 Actual Procedures p Cardioversion - Ajit Loera MD Operation Date: 07/31/18 11:00 Actual Procedures p Bronchoscopy (Bilateral) - Mateo Madera MD Surgeon Mateo Madera MD [employer] Tender none Estimated Blood Loss 0 Findings Consistent with Post-Op Diagnosis Chronic Aspiration pneumonia/R/O Bronchogenic Ca
--- NOTE | 2018-07-31 12:14 | Post Anesthesia Assessment ---
Date of Service July 31, 2018 Post Sedation Assessment Vital Signs Temp Pulse Pulse Resp BP BP Pulse Ox 07/31/18 11:57 83 20 113/61 95 07/31/18 11:52 83 16 118/73 92 07/31/18 11:47 84 16 122/58 L 96 07/31/18 11:42 85 16 114/58 L 96 07/31/18 11:40 83 16 118/60 96 07/31/18 11:35 83 16 114/67 94 07/31/18 11:30 83 16 111/62 92 07/31/18 11:25 89 20 132/73 98 07/31/18 11:20 84 20 132/73 99 07/31/18 07:47 36.6 C 82 19 125/75 95 07/31/18 03:16 36.7 C 86 23 114/68 91 07/30/18 23:43 36.4 C L 84 19 127/71 92 07/30/18 19:45 36.7 C 84 18 122/72 92 07/30/18 15:26 36.4 C L 78 18 112/68 93 Recovery Score Activity: Moves 4 extremities Respiration: Deep Breath/Cough Circulation: +/-20% PreAnes Value Consciousness: Fully Awake Oxygen Saturation: O2 needed for >90% Post Anesthesia Score: 9 Discharge Sedation Level of Care: Fast Track Phase II Post Sedation Plan On clinical assessment, the patient appears to have tolerated the sedation without complications. Patient is recovering as anticipated. Patient will continue to be monitored by nursing and may be discharged when sedation discharge criteria are met per below protocol. Upon Completions of procedure and additional 15 minutes continue every 5 minute vital signs and the P.A.R. score; then discharge to a Phase I or Fast Track to Phase II per the following guidelines: * Discharge Patient to appropriate Phase II area if PAR is 8 or greater or return to pre- procedure baseline. The post - procedure orders will be as directed. * If PAR score is less than 8 or not return to pre-procedure baseline then patient will follow Phase I monitoring till PAR is reached for Phase II. The Phase I may be done in procedure room or may call to secure a Phase I area. * �If naloxone or flumazenil are used for reversal, hold in Phase I for continued monitoring from when last reversal dose was given for a minimum of 60 minutes or longer pending the nurse and/or physician discretion of patient condition before discharge to Phase II.� Please call the Sedation Physician to re-evaluate and complete post-note for discharge to Phase II area. Do NOT discharge from procedure sedation or Phase 1 until post- sedation evaluation note is complete by procedure /sedation MD Sedation Discharge Instructions to be given to the patient at discharge to home.
--- NOTE | 2018-07-31 15:54 | Fluoroscopy Report ---
VIDEO SWALLOW STUDY CLINICAL HISTORY: Aspiration. COMPARISON STUDY: No priors. Fluoroscopy time: 1.9 minutes. FINDINGS: Fluoroscopic guidance is provided to the Department of Speech Pathology in performing a vid eo swallow study. The patient consumed barium-impregnated pudding, nectar thick liquid, and thin tulio um and the swallowing mechanism was observed in real-time. Aspiration was identified with or followin g all of the sampled textures. A cough reflex was elicited after one episode of aspiration. IMPRESSION: 1. Aspiration with all simple textures. 2. See dedicated speech pathology report for detailed findings and recommendations. Dictated: 07/31/2018 3:14 PM Transcribed: 07/31/2018 3:53 PM Sheila [id number] [email or web address] Electronically signed by: Lorenzo Zee M.D. 07/31/2018 3:57 PM
[2018-07-31] MEDS: guaiFENesin 600 MG TABCR PO SCH ×2 (16:47→19:41)
[2018-07-31] MEDS: PIPERACILLIN/TAZOBACTAM 3.375 GM in DEXTROSE 5% 100 ML IV SCH ×2 (16:48→23:27)
[2018-07-31] MEDS: predniSONE 5 MG TAB PO SCH (16:48)
[2018-07-31] MEDS: METOPROLOL SUCC 50MG EXT REL TAB PO SCH (16:48)
[2018-07-31] MEDS: AZITHROMYCIN 250 MG in DEXTROSE 5% 250 ML IV SCH (16:51)
--- NOTE | 2018-07-31 17:45 | Hospitalist Progress Note ---
Date of Service July 31, 2018 Assessment & Plan (1) Atrial flutter with rapid ventricular response: This pt is a 77 yo male with persistent pneumonia as an outpt x 2-3 weeks who presented with rapid atrial flutter. Became hypotensive with intravenous diltiazem and metoprolol. Cardioverted on 07/29 after a MILAD with cardiology. - Continue anticoagulation - Currently heparin gtt was on hold for bronchoscopy and had biopsy on 07/31---> d/w PULM--> will hold on restarting heparin gtt until AM of 08/01 to ensure no hemoptysis - Can discharge on novel agent if cost affordable - Continue beta-geoff (2) PNA (pneumonia): CTA chest on 07/27 showed extensive right sided pneumonia in all lobes but predominantly RLL. Also shows mucus plugging and possible right hilar mass/malignancy. INTERNAL MEDICINE PHYSICIAN ASSISTANT saw the patient on 07/29 and cleared him for a diet. Failed outpatient antibiotics. Now failed Video Swallow Study with all thickness liquids, most likely aspiration PNA. Will allow him to eat for comfort at this point as per his request, especially in light of most likely lung CA seen on bronchoscopy and overall poor prognosis Has been on ceftriaxone and azithro which would not adequately cover for aspiration PNA Leukocytosis continues to worsen, not requiring O2 now -switched to IV Zosyn today and can likely change to po Augmentin on discharge -continue guaifenesin for continued thick secretions - Pulm consult - Concern for malignancy. Now s/p bronch on 07/[address] Madera-awaiting results/cultures/path -follow CXR in AM (3) Parkinson disease: No major inpatient concerns. - Continue home meds (4) Anxiety: - Continue home med of clonazepam hs prn (5) Cardiomyopathy: due to tachyarrhythmia, LVEF 40-45%, mildly reduced RV function -controlling arrhythmia -repeat ECHO as outpt and f/u with Cardiology -not volume overloaded (6) Pericardial effusion: small, no tamponade physiology, follow up as outpt (7) Lung mass: as above, seen on CT and bronchoscopy, biopsied -f/u path results when available -appreciate Pulm input (8) Dysphagia: aspirating all liquids on VFSS seen by Speech and no recommendations made unless pt wants to be NPO-pt declines this -continue diet for now, aspiration precautions Likely related to Parkinson's? -Consider Neuro consult or MRI brain? (9) Chronic systolic CHF (congestive heart failure): as above in Cardiomyopathy (10) DVT prophylaxis: Heparin gtt for his aflutter to be restarted in the AM Dispo-remain on tele Dr. Madera to discuss bronchoscopy findings with the pt's PT/OT evals placed and recommend return home with home health after discharge Possible discharge to home in 1-2 days Subjective Pt feels tired after his bronchoscopy. Denies SOB, has a mild cough. No chest pain, no nausea. I discussed the case with Pulmonology and Speech Therapy. His bronch did show a mass that is likely a cancer. Speech therapy said that pt is aspirating everything on swallow eval. Pt wishes to eat regardless which is fine. Tele with NSR, PACs, rates in the 80s. Review of Systems All systems reviewed & are unremarkable except as noted in HPI & below Physical Exam Vital Signs (Past 24 Hours): Last Vital Signs Temp 36.4 C L 07/31/18 15:32 Pulse 90 07/31/18 15:32 Resp 20 07/31/18 15:32 BP 127/68 07/31/18 15:32 Pulse Ox 93 07/31/18 15:32 Constitutional: WD/WN, vitals as above Eyes: PERRL, conjunctivae normal, anicteric sclerae ENMT: external ear and nose normal, oropharynx normal Neck: trachea midline, no thyromegaly Respiratory: normal respiratory effort; no respiratory distress Auscultation: + diminished lung sounds (at righ tbase, otherwise clear) Cardiovascular: RRR, no murmur, no edema (with ectopy) Gastrointestinal (Abdomen): normal bowel sounds, soft, nontender, no hepatosplenomegaly Musculoskeletal: Extremities: extremities normal to inspection; no cyanosis and no clubbing Skin: no rashes, warm and dry Neurologic: moves all extremities and awake; no focal motor deficits Psychiatric: Orientation: alert, oriented to person, oriented to place and cooperative Eye Contact: + fair eye contact Motor Behavior: + tremor (resting tremor in R>L arms) Results & Data Laboratory Results 07/31/18 07/31/18 07/31/18 Range/Units 11:35 05:29 05:29 WBC 12.57 H (4.8-10.8) K/uL RBC 3.40 L (4.7-6.1) M/uL Hgb 10.7 L (14.0-18.0) g/dL Hct 32.8 L (42-52) % MCV 96.5 (80-100) fL MCH 31.5 (25-34) pg MCHC 32.6 (32-36) g/dL RDW Std Deviation 47.4 H (36.4-46.3) fL RDW Coeff of Zulma 13.4 (11.5-14.5) % Plt Count 223 (130-400) K/uL MPV 9.8 (7.4-10.4) fL APTT (21.0-31.0) Seconds PTT Ratio Sodium 140 (136-145) mmol/L Potassium 3.7 (3.5-5.1) mmol/L Chloride 108 H (98-107) mmol/L Carbon Dioxide 25 (21-32) mmol/L Anion Gap 7.0 (3-11) BUN 12 (7-18) mg/dl Creatinine 0.87 (0.6-1.4) mg/dl Est Cr Clr Drug Dosing 80.9 ml/min Est GFR ( Amer) 95.1 Est GFR (Non-Af Amer) 82.1 BUN/Creatinine Ratio 14.0 (10-20) Glucose 104 H (70-99) mg/dl Calcium 8.5 (8.5-10.1) mg/dl Magnesium 2.1 (1.8-2.4) mg/dl BAL A.galactomannan Ag Pending BAL A.galactomann Index Pending 07/31/18 Range/Units 05:29 WBC (4.8-10.8) K/uL RBC (4.7-6.1) M/uL Hgb (14.0-18.0) g/dL Hct (42-52) % MCV (80-100) fL MCH (25-34) pg MCHC (32-36) g/dL RDW Std Deviation (36.4-46.3) fL RDW Coeff of Zulma (11.5-14.5) % Plt Count (130-400) K/uL MPV (7.4-10.4) fL APTT 27.3 (21.0-31.0) Seconds PTT Ratio 1.0 Sodium (136-145) mmol/L Potassium (3.5-5.1) mmol/L Chloride (98-107) mmol/L Carbon Dioxide (21-32) mmol/L Anion Gap (3-11) BUN (7-18) mg/dl Creatinine (0.6-1.4) mg/dl Est Cr Clr Drug Dosing ml/min Est GFR ( Amer) Est GFR (Non-Af Amer) BUN/Creatinine Ratio (10-20) Glucose (70-99) mg/dl Calcium (8.5-10.1) mg/dl Magnesium (1.8-2.4) mg/dl BAL A.galactomannan Ag BAL A.galactomann Index (1) PNA (pneumonia) Laterality: right Lung location: middle lobe of lung Pneumonia type: due to unspecified organism Qualified Code(s): J18.1 - Lobar pneumonia, unspecified organism
--- NOTE | 2018-07-31 21:23 | Progress Note ---
DATE: 07/31/2018 PULMONARY MEDICINE PROGRESS NOTE TIME: 1600 hours. Chart reviewed and the patient examined. SUBJECTIVE: The patient was evaluated post bronchoscopy and post video swallow. I received a call from speech therapy who felt that the patient following the video swallow was aspirating both liquids and solids and no attempt at modification was helpful. In addition, the patient underwent bronchoscopic evaluation this morning with culture of the secretions and will await biopsy and results from the endobronchial abnormalities described in my report. The patient tolerated the procedure well and was informed of potential diagnoses.
--- NOTE | 2018-08-01 01:08 | Operative Report ---
DATE OF OPERATION: 07/31/2018 TIME: 1100 hours. PROCEDURE: Fiberoptic bronchoscopy without biopsy. INDICATIONS: Right lower lobe pneumonia with narrowing of the bronchus intermedius and right lower lobe bronchus and suggestion of right hilar/mediastinal adenopathy. Rule out aspiration pneumonia, rule out bronchogenic neoplasm or combination of both. ANESTHESIA PREOPERATIVELY: None. ANESTHESIA DURING PROCEDURE: IV Versed 2 mg, IV fentanyl 50 mcg, 20 mL 2% Xylocaine spray above and below the cords, 4% viscous Xylocaine intranasally. DESCRIPTION OF PROCEDURE: Moderate conscious sedation was begun at 11:27 and completed at 11:45. Fiberoptic bronchoscope was inserted into the right naris with minimal difficulty and passed to the level of the true vocal cords. The cords appeared to approximate normally with phonation, but without evidence for lesions or paralysis. The area was anesthetized with 2% Xylocaine spray and the scope was then introduced into the trachea and right and left tracheobronchial tree. The kush was sharp. The left main stem bronchus was explored initially and no endobronchial lesions were seen. Left upper lobe at the apical-posterior and anterior segments, the lingular subdivision over the superior and inferior segments, and all basilar segments of the left lower lobe were found to be free of endobronchial lesions with a small amount of mucopurulent secretion lavaged from the left lower lobe until clear. The scope was withdrawn to the kush, which was sharp and advanced into the right mainstem bronchus. No overt endobronchial lesion was seen in the right mainstem bronchus. The right upper lobe at the apical posterior and anterior segments, right middle lobe at the medial lateral segments were found to be free of endobronchial lesions, but a copious amount of mucopurulent secretion was seen virtually occluding the right lower lobe bronchus. This area was lavaged with normosol and the aspirate sent for appropriate studies. The medial wall of the right bronchus intermedius appeared to be displaced laterally, possibly from mediastinal adenopathy. The basal segments of the right lower lobe were all fish mouthed and abnormal and edematous with friable mucosa and whitish plaque adherent to the medial and posterior basilar segments. Following lavage of the segments with the aspirate sent for appropriate studies, brushings were taken of the most involved areas x3 for cytologic preparation with a minimal amount of bleeding which abated after instillation of iced saline lavage. Multiple biopsies were taken from the segmental bronchi orifices with a moderate amount of bleeding which abated following additional installation of iced saline lavage. The patient appeared to tolerate the procedure well and the procedure was terminated. The patient was given a nebulizer treatment with Xopenex 1.25 mg and transferred to the medical floor hemodynamically stable. No signs of respiratory compromise. A video swallow was done following full recovery of the patient and preliminary report showed significant aspiration of both liquids and solids according to the speech therapist. Will await microbiological, cytological, and histopathologic diagnoses. I attest to the content of the Intraoperative Record and any orders documented therein. Any exception s are noted below.
[2018-08-01] MEDS: CARBIDOPA/LEVODOPA 25/100MG EXT REL TAB PO SCH ×3 (06:31→17:24)
[2018-08-01 07:09] LABS: Basophils # (auto) 0.03 K/uL (0-0.2); Basophils % (auto) 0.2 %; Eosinophils # (auto) 0.75 K/uL (0-0.5); Eosinophils % (auto) 5.5 %; Hematocrit (blood only) 32.3 % (42-52); Hemoglobin 10.4 g/dL (14.0-18.0); Immature Granulocytes # (auto) 0.03 K/uL (0.00-0.02); Immature Granulocytes % (auto) 0.2 %; Lymphocytes # (auto) 0.94 K/uL (1.2-3.4); Lymphocytes % (auto) 6.8 %; Mean Corpuscular Hgb Conc 32.2 g/dL (32-36); Mean Corpuscular Volume 97.3 fL (80-100); Mean Platelet Volume 10.1 fL (7.4-10.4); Monocytes # (auto) 1.84 K/uL (0.11-0.59); Monocytes % (auto) 13.4 %; Neutrophils # (auto) 10.17 K/uL (1.4-6.5); Neutrophils % (auto) 73.9 %; Platelet Count 223 K/uL (130-400); RDW Coefficient of Variation 13.6 % (11.5-14.5); Red Blood Count 3.32 M/uL (4.7-6.1); White Blood Count 13.76 K/uL (4.8-10.8)
[2018-08-01 07:19] LABS: Partial Thromboplastin Ratio 1.1; Partial Thromboplastin Time 28.5 Seconds (21.0-31.0)
[2018-08-01 07:37] LABS: BUN Creatinine Ratio 15.8 (10-20); Calcium 8.2 mg/dl (8.5-10.1); Creatinine Clr Calc Pharmacy 88.5 ml/min; Est GFR (Non-African American) 85.4; Magnesium 2.2 mg/dl (1.8-2.4); Potassium 3.8 mmol/L (3.5-5.1)
[2018-08-01] MEDS: PIPERACILLIN/TAZOBACTAM 3.375 GM in DEXTROSE 5% 100 ML IV SCH ×2 (07:46→15:41)
[2018-08-01] MEDS: predniSONE 5 MG TAB PO SCH (09:15)
[2018-08-01] MEDS: guaiFENesin 600 MG TABCR PO SCH ×2 (09:16→19:30)
[2018-08-01] MEDS: METOPROLOL SUCC 50MG EXT REL TAB PO SCH (09:16)
--- NOTE | 2018-08-01 10:16 | Progress Note ---
DATE: 08/01/2018 PULMONARY MEDICINE PROGRESS NOTE Chart reviewed, the patient examined. SUBJECTIVE: The patient was sitting up having coffee. A video swallow was very suggestive of chronic aspiration. Unfortunately, the patient did not understand or comply with the nuances suggested to him by speech therapy to try to prevent further aspiration. We are awaiting the results of the biopsies. I did talk with Dr. Venessa Moore about restarting IV heparin, I felt comfortable enough to have it restarted this morning and he can go a long-term anticoagulant therapy as needed. We will await the results of culture and biopsy and would be happy to see patient in the office in followup.
[2018-08-01] MEDS ORDERED: HEPARIN IV BOLUS 7,000 UNITS in SYRINGE 0 ML IV ONE (10:30)
[2018-08-01] MEDS: Heparin Adult STANDARD Wt-Based Dextrose 5% 25,000 units/500 mL IV SCH (10:36)
--- NOTE | 2018-08-01 10:39 | XRay Report ---
SINGLE VIEW CHEST CLINICAL HISTORY: Follow-up pneumonia. FINDINGS: An AP, portable, upright chest radiograph is compared to chest x-ray and chest CT dated 07/27. The examination is degraded by portable technique and patient rotation. The heart is enlarged and there is atherosclerotic calcification of the thoracic aorta. There is mild pulmonary vascular c ongestion. Emphysema and chronic interstitial thickening are similar to previous. There are small ple ural effusions, right larger than left with dense right basilar consolidation. Atelectasis is noted a t the left lung base. No pneumothorax is seen. The skeletal structures are osteopenic. The bony thora x is grossly intact. IMPRESSION: 1. Cardiomegaly and emphysema with evidence of mild congestive failure. 2. Layering right pleural effusion with dense right basilar consolidation. Consolidation has increase d from 07/27/2018. 3. There is a small left pleural effusion with left basilar airspace atelectasis. Electronically signed by: Lorenzo Zee M.D. 08/01/2018 10:38 AM
--- NOTE | 2018-08-01 13:45 | Hospitalist Progress Note ---
Date of Service August 01, 2018 Assessment & Plan (1) Atrial flutter with rapid ventricular response: This pt is a 77 yo male with persistent pneumonia as an outpt x 2-3 weeks who presented with rapid atrial flutter. Became hypotensive with intravenous diltiazem and metoprolol. Cardioverted on 07/29 after a MILAD with cardiology. Remains in normal sinus rhythm since his cardioversion - Continue anticoagulation - Currently heparin gtt due to previous need for bronchoscopy and had biopsy on 07/31 - Can discharge on novel agent if cost affordable-can likely convert to oral agent tomorrow - Continue Toprol-XL 50 mg once daily -We will need follow-up with cardiology after discharge (2) PNA (pneumonia): CTA chest on 07/27 showed extensive right sided pneumonia in all lobes but predominantly RLL. Also shows mucus plugging and possible right hilar mass/malignancy. RESERVOIR CARETAKER saw the patient on 07/29 and cleared him for a diet. Failed outpatient antibiotics. Now failed Video Swallow Study with silent aspiration with all thickness liquids, therefore he most likely presented with subacute aspiration PNA not responding to typical antibiotics for community-acquired pneumonia as an outpatient. There is a good chance he has an anaerobic infection Will allow him to eat for comfort at this point as per his request, especially in light of most likely lung CA seen on bronchoscopy and overall poor prognosis. Needs to follow speech therapy recommendations to prevent aspiration Has been on ceftriaxone and azithro which would not adequately cover for aspiration PNA with this presentation and has since been converted to Zosyn and discontinued the ceftriaxone Chest x-ray on 08/01 seems worse in the right with some small bilateral pleural effusions and atelectasis on the left base, however he is also getting volume overloaded -Giving IV Lasix x1 Leukocytosis continues to increase, but not requiring O2 now -Continue IV Zosyn today and can likely change to po Augmentin on discharge -continue guaifenesin for continued thick secretions - Pulm consult - Concern for malignancy. Now s/p bronch on 07/[address] Madera-awaiting results/cultures/path -follow CXR to resolution as an outpatient (3) Parkinson disease: Stable, however with dysphagia causing aspiration as above likely secondary to Parkinson disease - Continue home carbidopa/levodopa (4) Anxiety: - Continue home med of clonazepam hs prn (5) Cardiomyopathy: due to tachyarrhythmia, LVEF 40-45%, mildly reduced RV function -controlling arrhythmia -repeat ECHO as outpt and f/u with Cardiology -Is becoming volume overloaded today -Giving Lasix 20 mg IV x1 now -Follow I's and O's, daily weights (6) Pericardial effusion: small, no tamponade physiology, follow up as outpt (7) Lung mass: as above, seen on CT and bronchoscopy, biopsied and pulmonary has great c oncern for primary malignancy -f/u path results when available -appreciate Pulm input (8) Dysphagia: Silently aspirating all liquids on VFSS seen by Speech and no recommendations made unless pt wants to be NPO-pt declines this -continue diet for now, aspiration precautions Likely related to Parkinson's? -Consider Neuro consult or MRI brain? (9) Chronic systolic CHF (congestive heart failure): Acute on chronic systolic CHF with volume overload today as above in Cardiomyopathy (10) DVT prophylaxis: Heparin gtt for his aflutter restarted today Dispo-remain on tele Dr. Madera to discuss bronchoscopy findings with the pt's I did call the patient's and leave a voicemail-I would really like to discuss his overall condition and prognosis PT/OT evals placed and recommend return home with home health after discharge Possible discharge to home in 1-2 days Subjective Patient has no complaints except for a cough. Denies chest pain or shortness of breath. He is anxious to go home. Telemetry with normal sinus rhythm, rates in the 70s, some PVCs. Review of Systems All systems reviewed & are unremarkable except as noted in HPI & below Physical Exam Vital Signs (Past 24 Hours): Last Vital Signs Temp 36.5 C 08/01/18 11:34 Pulse 70 08/01/18 11:34 Resp 18 08/01/18 11:34 BP 112/65 08/01/18 11:34 Pulse Ox 97 08/01/18 11:34 Constitutional: WD/WN, vitals as above Eyes: PERRL, conjunctivae normal, anicteric sclerae Neck: trachea midline, no thyromegaly Respiratory: normal respiratory effort; no respiratory distress Auscultation: + diminished lung sounds (at righ tbase, otherwise clear) and + crackles (At bases) Cardiovascular: Rate/Rhythm: regular rate and regular rhythm Heart Sounds: no murmur Extremities: + edema (1+ pitting edema legs bilaterally) Gastrointestinal (Abdomen): normal bowel sounds, soft, nontender, no hepatosplenomegaly Musculoskeletal: Extremities: extremities normal to inspection; no cyanosis and no clubbing Skin: no rashes, warm and dry Neurologic: moves all extremities and awake; no focal motor deficits Psychiatric: Orientation: alert, oriented to person, oriented to place and cooperative Eye Contact: + fair eye contact Motor Behavior: + tremor (resting tremor in R>L arms) Results & Data Laboratory Results WBC count increased to 13.7, hemoglobin 10.4 and stable, platelets 223 BMP within normal limits Magnesium 2.2 Sputum culture with light normal kezia [facility] BAL, cytology, and pathology all pending Diagnostic Findings Chest x-ray image personally reviewed by me and agree with the following report: SINGLE VIEW CHEST CLINICAL HISTORY: Follow-up pneumonia. FINDINGS: An AP, portable, upright chest radiograph is compared to chest x-ray and chest CT dated 07/27/2018. The examination is degraded by portable technique and patient rotation. The heart is enlarged and there is atherosclerotic calcification of the thoracic aorta. There is mild pulmonary vascular congestion. Emphysema and chronic interstitial thickening are similar to previous. There are small pleural effusions, right larger than left with dense right basilar consolidation. Atelectasis is noted at the left lung base. No pneumothorax is seen. The skeletal structures are osteopenic. The bony thorax is grossly intact. IMPRESSION: 1. Cardiomegaly and emphysema with evidence of mild congestive failure. 2. Layering right pleural effusion with dense right basilar consolidation. Consolidation has increased from 07/27/2018. 3. There is a small left pleural effusion with left basilar airspace atelectasis. (1) PNA (pneumonia) Laterality: right Lung location: middle lobe of lung Pneumonia type: due to unspecified organism Qualified Code(s): J18.1 - Lobar pneumonia, unspecified organism
[2018-08-01] MEDS ORDERED: FUROSEMIDE 20 MG in SYRINGE 0 ML IV ONE (14:15)
[2018-08-01 16:49] LABS: Partial Thromboplastin Ratio 1.9
[2018-08-01 17:07] LABS: Partial Thromboplastin Time 51.2 Seconds (21.0-31.0)
[2018-08-01] MEDS: AZITHROMYCIN 250 MG in DEXTROSE 5% 250 ML IV SCH (17:24)
[2018-08-02] MEDS: PIPERACILLIN/TAZOBACTAM 3.375 GM in DEXTROSE 5% 100 ML IV SCH ×3 (00:18→15:47)
[2018-08-02] MEDS: Heparin Adult STANDARD Wt-Based Dextrose 5% 25,000 units/500 mL IV SCH (02:27)
[2018-08-02] MEDS: METOPROLOL TARTRATE 1 MG/ML VIAL IV PRN (03:48)
[2018-08-02 06:21] LABS: Partial Thromboplastin Ratio 1.5; Partial Thromboplastin Time 41.1 Seconds (21.0-31.0)
[2018-08-02 06:24] LABS: Creatinine Clr Calc Pharmacy 81.2 ml/min; Est GFR (African American) 96.1; Est GFR (Non-African American) 82.9
[2018-08-02] MEDS ORDERED: HEPARIN IV BOLUS 3,000 UNITS in SYRINGE 0 ML IV ONE (07:30)
[2018-08-02] MEDS: CARBIDOPA/LEVODOPA 25/100MG EXT REL TAB PO SCH ×2 (07:40→12:10)
[2018-08-02 08:19] LABS: BUN Creatinine Ratio 13.2 (10-20); Calcium 8.6 mg/dl (8.5-10.1); Creatinine Clr Calc Pharmacy 79.3 ml/min; Est GFR (African American) 95.1; Est GFR (Non-African American) 82.1; Potassium 3.6 mmol/L (3.5-5.1)
[2018-08-02 08:22] LABS: Basophils # (auto) 0.03 K/uL (0-0.2); Basophils % (auto) 0.2 %; Eosinophils # (auto) 1.05 K/uL (0-0.5); Hematocrit (blood only) 33.9 % (42-52); Hemoglobin 11.1 g/dL (14.0-18.0); Immature Granulocytes # (auto) 0.05 K/uL (0.00-0.02); Immature Granulocytes % (auto) 0.3 %; Lymphocytes # (auto) 0.83 K/uL (1.2-3.4); Lymphocytes % (auto) 5.6 %; Mean Corpuscular Hgb Conc 32.7 g/dL (32-36); Mean Corpuscular Volume 96.9 fL (80-100); Mean Platelet Volume 10.4 fL (7.4-10.4); Monocytes # (auto) 2.03 K/uL (0.11-0.59); Monocytes % (auto) 13.6 %; Neutrophils # (auto) 10.91 K/uL (1.4-6.5); Neutrophils % (auto) 73.3 %; Platelet Count 238 K/uL (130-400); RDW Coefficient of Variation 13.4 % (11.5-14.5); RDW Standard Deviation 47.7 fL (36.4-46.3)
[2018-08-02] MEDS: guaiFENesin 600 MG TABCR PO SCH (08:34)
[2018-08-02] MEDS: METOPROLOL SUCC 50MG EXT REL TAB PO SCH (08:34)
[2018-08-02] MEDS: predniSONE 5 MG TAB PO SCH (08:35)
--- NOTE | 2018-08-02 10:02 | Progress Note ---
DATE: 08/02/2018 PULMONARY MEDICINE PROGRESS NOTE Chart reviewed, the patient examined. SUBJECTIVE: The patient is sitting up having breakfast. No sign of choking or respiratory distress. The patient's was in the room and I plan to discuss with her findings. A video swallow as stated earlier showed chronic aspiration maneuvers by the speech therapist, ineffective according to her history. No doubt the result of patient's parkinsonism. He was successfully cardioverted and anticoagulation therapy was restarted safely in the form of IV heparin. Will await biopsy results, either the changes I saw bronchoscopically represent chronic inflammatory disease or an underlying neoplasm. Biopsy should be out tomorrow and once patient is discharged, can follow up with Dr. Yan.
[2018-08-02 11:20] LABS: Appearance Urine Clear (Clear); Bilirubin Urine Negative (Negative); Blood Urine Negative (Negative); Color Urine Yellow; Glucose Urine UA Negative (Negative); Ketones Urine Trace (Negative); Leukocyte Esterase Urine Negative (Negative); Nitrite Urine Negative (Negative); Protein Urine Negative (Negative); Specific Gravity Urine 1.021 (1.000-1.030); Urobilinogen Urine Negative (Negative)
[2018-08-02 14:46] LABS: Partial Thromboplastin Ratio 1.3; Partial Thromboplastin Time 36.2 Seconds (21.0-31.0)
[2018-08-02] MEDS ORDERED: HEPARIN IV BOLUS 7,000 UNITS in SYRINGE 0 ML IV ONE (15:30)
[2018-08-02] MEDS ORDERED: APIXABAN 5 MG TABLET PO SCH (16:00)
--- NOTE | 2018-08-02 16:09 | Discharge Summary ---
Date of Service August 02, 2018 Admission HPI Per Admitting Provider 77 y/o M who was sent here from PCP's office for aflutter. Pt has been working with PCP for a PNA for the last 2-3 weeks. He was given an abx that was not helping so it was changed to another. He is not certain which abx he was on initially or now. He was also given steroids last week. Pt does not feel he is getting worse, but he is getting no better. Ongoing SOB and cough. He feels that he is getting "played out" very easily now and this is worse over the last week. He tolerates PO but has a low appetite. He states this is not new for him. Pt denies fever, chest pain, abd pain, n/v/c/d, LE pain or swelling. Pt states that he does cough/choke at times after he swallows. He states it does not happen with every meal or even every day, but he cannot quantify this further for me. "I haven't been keeping a record of it." Principal Diagnosis Rapid atrial flutter, aspiration pneumonia, severe dysphagia Discharge Exam Constitutional WD/WN, vitals as above Eyes PERRL, conjunctivae normal, anicteric sclerae Neck trachea midline, no thyromegaly Respiratory normal respiratory effort; no respiratory distress Auscultation: + diminished lung sounds (at righ tbase, otherwise clear) and + crackles (At bases) Cardiovascular Rate/Rhythm: regular rate and regular rhythm Heart Sounds: no murmur Extremities: + edema (Trace pitting edema legs bilaterally) Gastrointestinal (Abdomen) normal bowel sounds, soft, nontender, no hepatosplenomegaly Musculoskeletal Extremities: extremities normal to inspection; no cyanosis and no clubbing Skin no rashes, warm and dry Neurologic moves all extremities and awake; no focal motor deficits Psychiatric Orientation: alert, oriented to person, oriented to place and cooperative Motor Behavior: + tremor (resting tremor in R>L arms) Discharge Data Allergies Allergy/AdvReac Type Severity Reaction Status Date / Time No Known Allergies Allergy Unknown NONE Unverified 07/27/18 10:36 Consultations 07/27/18 12:10 ED Decision to Admit Stat 07/27/18 15:42 Consult Cardiology Stat Consult Case Management - Discharge Planning Routine 07/28/18 09:36 Consult Anesthesiology Routine 07/28/18 09:37 Consult Anesthesiology Routine 07/29/18 16:58 Consult Pulmonology Routine Procedures Performed Operation Date: 07/29/18 07:30 Actual Procedures p Cardioversion - Ajit Loera MD Operation Date: 07/31/18 11:00 Actual Procedures p Bronchoscopy (Bilateral) - Mateo Madera MD Ordered Studies 07/27/18 10:12 CT angio chest PE protocol Stat 07/31/18 14:30 FL video swallow Routine Chest x-rays Hospital Course (1) Atrial flutter with rapid ventricular response: This pt is a 77 yo male with persistent pneumonia as an outpt x 2-3 weeks who presented with rapid atrial flutter. Became hypotensive with intravenous diltiazem and metoprolol. Cardioverted on 07/29 after a MILAD with cardiology. Remains in normal sinus rhythm since his cardioversion except for an 80-minute period of rapid atrial flutter on the morning of 08/02 which resolved on its own after receiving IV Lopressor - Continue anticoagulation -was treated initially with a heparin gtt due to need for bronchoscopy and had biopsy on 07/31. He was then converted to Eliquis -He will be discharged home on Eliquis 5 mill grams p.o. twice daily - Continue Toprol-XL 50 mg once daily -We will need follow-up with cardiology after discharge (2) PNA (pneumonia): CTA chest on 07/27 showed extensive right sided pneumonia in all lobes but predominantly RLL. Also shows mucus plugging and possible right hilar mass/malignancy. [facility]OM[facility]ELOP[facility] saw the patient on 07/29 and cleared him for a diet. Failed outpatient antibiotics. Now failed Video Swallow Study with silent aspiration with all thickness liquids, therefore he most likely presented with subacute aspiration PNA not responding to typical antibiotics for community-acquired pneumonia as an outpatient. There is a good chance he has an anaerobic infection Will allow him to eat for comfort at this point as per his request, especially in light of most likely lung CA seen on bronchoscopy and overall poor prognosis. Needs to follow speech therapy recommendations to prevent aspiration although not much hope for this helping. Has been on ceftriaxone and azithro which would not adequately cover for aspiration PNA with this presentation and has since been converted to Zosyn and discontinued the ceftriaxone Chest x-ray on 08/01 seems worse in the right with some small bilateral pleural effusions and atelectasis on the left base, however he was also getting volume overloaded at that time He was given a dose of IV Lasix x1 and had improvement in his lung exam Leukocytosis continues to increase to 14,000 on the day of discharge, UA was negative for infection and this is likely secondary to recurrent aspiration pneumonitis He is requiring 2 L nasal cannula continuously -He was treated with IV Zosyn times 3 days and can convert to po Augmentin on discharge for 7 more days -continue guaifenesin for continued thick secretions - Pulm consult - Concern for malignancy. Now s/p bronch on 07/[address] Madera-awaiting results/cultures/path -follow CXR to resolution as an outpatient -Overall prognosis is poor-he will likely have recurrent aspiration pneumonias (3) Parkinson disease: Stable, however with dysphagia causing aspiration as above likely secondary to Parkinson disease - Continue home carbidopa/levodopa (4) Anxiety: - Continue home med of clonazepam hs prn (5) Cardiomyopathy: due to tachyarrhythmia, LVEF 40-45%, mildly reduced RV function -controlling arrhythmia -repeat ECHO as outpt and f/u with Cardiology -Had some mild volume overload which was treated with IV Lasix x1 the day prior to discharge with great improvement -He does not need a daily diuretic at home and should be followed closely by PCP and cardiology (6) Pericardial effusion: small, no tamponade physiology, follow up as outpt (7) Lung mass: as above, seen on CT and bronchoscopy, biopsied and pulmonary has great concern for primary malignancy -f/u path results when available-he has follow-up with Dr. Verdin the day after discharge -appreciate Pulm input (8) Dysphagia: Silently aspirating all liquids on VFSS seen by Speech and no recommendations made unless pt wants to be NPO-pt declines this -continue diet for now with soft bite size pieces, aspiration precautions Likely related to Parkinson's (9) Chronic systolic CHF (congestive heart failure): Acute on chronic systolic CHF with mild volume overload the day prior to discharge-this resolved with a dose of IV Lasix and his weight is back almost to baseline from admission -No daily diuretic needed on discharge but should be followed closely as an outpatient (10) Acute respiratory failure with hypoxia: He will now require 2 L continuously via nasal cannula upon discharge (11) DVT prophylaxis: Heparin gtt and then changed to Eliquis Dispo-stable for discharge to home with home health and home oxygen Overall prognosis is poor and he is at high risk for readmission Total Time Total Time Spent Total Time Spent (In Minutes): Greater than 30 minutes Total Time Includes: Examination of the Patient, Discharge Planning and Medication Reconciliation Discharge Plan Discharge Items Patient Disposition: Home - Home Health Services Reason For Visit: AFLUTTER Discharge Diagnosis: Rapid atrial flutter, aspiration pneumonia Condition: Fair Discharge Goals: Diagnostic testing, Improve disease control, Learn about illness and Therapeutic intervention Activity: As commented below Lifting: Gradually increase as tolerated Bathing: No limitations Exercise/Sports: Gradually increase as tolerated Non-emergency contact: Primary Care Provider and Embroidery Specialist Call non-emergency contact if: you have any medication questions, your symptoms worsen and your temperature is above 101 Follow-up/Referrals: Brian Yan MD [Primary Care Provider] - 08/03/18 2:00 pm (Please, follow up at Dr. Yan's office with his patient assistant, Phyllis Veras PA-C, on FridayAugust 03 at 2:00 pm. *If you need to change this appointment, call the office at [phone].) Ajit Loera MD [Business Planning Manager] - (Call for an appointment within 2 weeks after discharge.) Diet: Low Sodium (2gm) Diet Texture: Dental soft (bite-sized) Addtl Provider Instructions: You were admitted with a rapid irregular heartbeat called atrial flutter and had an electrical cardioversion back to normal heart rhythm. You were started on a blood thinner pill called Eliquis which is to be taken 1 pill twice a day to prevent you from having a stroke given your irregular heartbeat. Please follow- up with power lineman for this within 2 weeks. You are also found to have aspiration pneumonia. On your video swallow study, you were found that your breathing and all thicknesses of liquids. It is likely that he will continue to aspirate every time you eat; you can also aspirate your own saliva-all of which can lead to recurrent pneumonias. The only solution to this is did not eat and perhaps get a feeding tube which may not actually prevent all aspiration. You declined a feeding tube at this time. Your difficulty with swallowing is most likely secondary to your Parkinson's d isease. Please finish out the course of antibiotics as prescribed for you. You had a bronchoscopy which showed a possible growth in your lung which was biopsied. Please follow-up with Dr. Yan on the results of your biopsy which should be back on Friday or Friday. You will also need to wear 2 L via nasal cannula of oxygen continuously. Prescriptions: New metoprolol succinate 50 mg Tablet Extended Release 24 Hr 50 mg PO QAM Qty: 30 RF: 0 Eliquis 5 mg Tablet 5 mg PO BID Qty: 60 RF: 0 guaifenesin [Mucinex] 600 mg Tablet Extended Release 12hr 1,200 mg PO Q12 Qty: 30 RF: 0 Continued clonazepam [Klonopin] 0.5 mg Tablet 0.25 - 0.5 mg PO HS PRN (Reason: Anxiety) RF: 0 prednisone 5 mg tablet 5 mg PO DIRECTED RF: 0 PreviDent 1.1 % Gel 1 applic DENTAL DAILY RF: 0 Rytary 23.75-95 mg capsule, extended release 2 cap PO QID RF: 0 amoxicillin-pot clavulanate 875-125 mg tablet 1 tab PO BID Qty: 14 RF: 0 Stand-Alone Forms: [facility] Discharge Orders: Discharge Order (Routine); Ordered 08/02/18 Ordered By: Venessa Moore Admission Data Admit Date/Time: 07/27/18 12:52 Attending Provider: Venessa Moore Admit Provider: Daniela Toth Primary Care Provider: Brian Yan Other Providers: Daniela Toth ; Ajit Loera ; Crystal Grubbs ; Macie Odell ; Jose Farmer ; Faith Farmer ; Shady Matute ; Susanne Smiley. ; Terry Israel ; Paulette Noel ; Jh Noel V ; Janeth Morin ; Kassidy Davila ; Av Mcdowell ; Loretta Anderson ; Jt Anderson ; Rhonda Modi ; Juliana Knox ; Yvette Haywood ; Eufemia Mejia ; Phyllis Nguyen ; Savage Carty ; Linden Jarrett ; Izzy Rojas ; Nneka Garcia ; Yenny Aguirre ; Josias Salazar ; Kris Rivera ; Brian Rivera ; Walt Allen ; David Feliz ; Leda Martinez ; Cem Carlton ; Tony Proctor ; Jh Quinn ; Denton Narvaez ; Dinorah Frank ; Marcella Acosta ; Janeth Webb ; Jody Gillette ; Torrey Gillette ; Nazario Cervantes ; Av Haley ; Judy Grubbs ; Andrew Olivas ; Brittany Light ; Raymundo Noble ; Judy Rooney ; Brit Jones V ; Amber Navarro ; Jorge L Arnold ; Graciela Davis ; Mateo Madera Service: Telemetry Other Pending Studies at Discharge: Yes Studies:: Final cytology and pathology of biopsy from the lung
== END 2018-08-02 16:35 | disposition home health service (06) | DRG 166 ==
LOC: ED 09:55 → 2S 12:52 → SUATTDRO 12:52 → 2S 14:38

== ENCOUNTER 2018-08-22 22:55 | Inpatient (IN) ==
[2018-08-22 23:59] LABS: Basophils # (auto) 0.01 K/uL (0-0.2); Eosinophils # (auto) 0.41 K/uL (0-0.5); Eosinophils % (auto) 1.9 %; Hematocrit (blood only) 37.8 % (42-52); Hemoglobin 12.9 g/dL (14.0-18.0); Immature Granulocytes # (auto) 0.12 K/uL (0.00-0.02); Immature Granulocytes % (auto) 0.6 %; Lymphocytes # (auto) 0.54 K/uL (1.2-3.4); Lymphocytes % (auto) 2.6 %; Mean Corpuscular Hgb Conc 34.1 g/dL (32-36); Mean Corpuscular Volume 91.5 fL (80-100); Mean Platelet Volume 10.8 fL (7.4-10.4); Monocytes # (auto) 1.79 K/uL (0.11-0.59); Monocytes % (auto) 8.5 %; Neutrophils # (auto) 18.26 K/uL (1.4-6.5); Neutrophils % (auto) 86.4 %; Nucleated RBC # (auto) 0.02 K/uL (0-0); Nucleated RBC % (auto) 0.1 %; Platelet Count 263 K/uL (130-400); RDW Coefficient of Variation 14.1 % (11.5-14.5); RDW Standard Deviation 46.7 fL (36.4-46.3); Red Blood Count 4.13 M/uL (4.7-6.1); White Blood Count 21.13 K/uL (4.8-10.8)
[2018-08-23 00:11] LABS: INR 1.3 (0.9-1.1)
[2018-08-23 00:13] LABS: Alanine Aminotransferase 54 U/L (12-78); Albumin Level 2.4 gm/dl (3.4-5.0); Aspartate Aminotransferase 25 U/L (15-37); BUN Creatinine Ratio 30.8 (10-20); Bilirubin Direct 0.2 mg/dl (0-0.2); Blood Urea Nitrogen 51 mg/dl (7-18); Calcium 8.8 mg/dl (8.5-10.1); Carbon Dioxide 28 mmol/L (21-32); Chloride 98 mmol/L (98-107); Creatinine Clr Calc Pharmacy 37.5 ml/min; Est GFR (African American) 45.1; Est GFR (Non-African American) 38.9; Glucose 123 mg/dl (70-99); Magnesium 2.9 mg/dl (1.8-2.4); Potassium 4.9 mmol/L (3.5-5.1); Sodium 132 mmol/L (136-145)
[2018-08-23 00:16] LABS: Albumin Globulin Ratio 0.5 (0.9-2); Alkaline Phosphatase 119 U/L (45-117); Bilirubin,Total 0.5 mg/dl (0.2-1); Globulin 4.5 gm/dl (2.5-4.0); NT Pro B Type Natriuretic Pept 1569 pg/ml (0-1800); Phosphorus 4.3 mg/dl (2.5-4.9); Total Protein 6.9 gm/dl (6.4-8.2); Troponin I < 0.015 ng/ml (0-0.045)
[2018-08-23 00:18] LABS: Base Excess VBG 0.3 mEq/L; HCO3 VBG 26 mmol/L; PCO2 VBG 45 mmHg (38-50); PO2 VBG 34 mmHg; pH VBG 7.38 (7.36-7.41)
[2018-08-23] MEDS ORDERED: SODIUM CHLORIDE 0.9% 500 ML IV ONE (00:26)
[2018-08-23] MEDS ORDERED: PIPERACILLIN/TAZOBACTAM 4.5 GM/120 ML BAG IV ONE (00:28)
[2018-08-23] MEDS ORDERED: VANCOMYCIN HCL 1,500 MG in SODIUM CHLORIDE 0.9% 500 ML IV ONE (00:28)
[2018-08-23] MEDS ORDERED: VANCOMYCIN CONSULT ACTIVE PRN (00:28)
--- NOTE | 2018-08-23 01:39 | Emergency Department Note ---
Entered by Kwabena Khalil acting as a scribe for Antwon Berrios MD History of Present Illness General Chief complaint: Shortness of Breath/Dyspnea Stated complaint: SOB Time Seen by Provider: 08/22/18 23:11 Source: family () History of Present Illness Onset (ago): day(s) 2 Location: chest (shortness of breath) Pain Consistency: + other (worsening) Relieved By: + none Associated symptoms: + denies other symptoms (dizziness, diarrhea), + fever/chills and + other (weakness, back pain); no nausea/vomiting The patient is a 77 year old M who presents to the Emergency Room with complaints of worsening shortness of breath that started 2 days ago. The HPI was provided by the patient�s . She states that the patient was admitted to the hospital last month for aspiration pneumonia and lung cancer. She notes that the patient was recommended not to eat orally but they decided to keep eating orally. She states that whenever the patient eats, the patient chokes and produces phlegm. She adds that the patient has a home nurse that drains that patient�s tube that goes into his lung every day. She notes that the patient is currently experiencing a fever, chills, weakness, and back pain. She denies that the patient is experiencing nausea, vomiting, dizziness, and diarrhea. She notes the patient has an appointment with his oncologist on Friday. She states that the patient is currently on eliquis. * EMR reviewed shows that the patient was admitted on 07/27-08/02 for aspiration pna. The patient was found to have right hilar mass. The patient also had aphasia and founded with silent aspirations but patient wanted to continue diet. Home Medications Home Medications Medication Instructions Recorded Confirmed Type PreviDent 1 applic DENTAL DAILY 07/27/18 08/23/18 History Rytary 2 cap PO QID 07/27/18 08/23/18 History clonazepam [Klonopin] 0.25 - 0.5 mg PO HS PRN 07/27/18 08/23/18 History guaifenesin [Mucinex] 1,200 mg PO Q12 #30 tab 08/02/18 08/23/18 Rx metoprolol succinate 50 mg PO QAM #30 tab 08/02/18 08/23/18 Rx tramadol [Ultram] 50 mg PO QID PRN #18 tab 08/20/18 08/23/18 Rx amiodarone 200 mg PO DAILY 08/23/18 08/23/18 History apixaban [Eliquis] 5 mg PO BID 08/23/18 08/23/18 History pantoprazole 40 mg PO DAILY 08/23/18 08/23/18 History triamterene-hydrochlorothiazid 1 cap PO DAILY 08/23/18 08/23/18 History Allergies Allergy/AdvReac Type Severity Reaction Status Date / Time No Known Allergies Allergy Unknown NONE Unverified 08/23/18 00:28 Past Med/Surg History Medical History Anxiety Parkinson disease (Chronic) Brain cancer (Acute) Lung cancer (Acute) Prostate cancer (Chronic) Atrial flutter GERD (gastroesophageal reflux disease) Osteoarthritis Surgical History S/P AAA repair Family History Brother Heart disease [place] Brother Stroke Other No pertinent family history Social History Preferred Language: Pashto Communication Ability: Effective Alining Inspector Required: No Beliefs That Will Affect Care: None marital status: Current Living Situation: Spouse Current Living Situation Comment: lives with Feels Safe at Home: Yes Safety Concerns: Feels Safe At This Time Smoking Status: Never smoker Second Hand Exposure: No Hx Alcohol Use: No Hx Substance Use: No Review of Systems See HPI for pertinent positives & negatives. and A total of 10 systems reviewed and were otherwise negative Physical Exam Vital Signs Vital Signs - 24 hr 08/22/18 23:13 08/22/18 23:25 08/22/18 23:36 Temperature 36.4 C L Temperature Source Oral Sepsis Recent Fever Within 48 Hours No Sepsis New/Unexplained Change in Mental Status No Sepsis Action Taken by Nursing No Action Required Pulse Rate 79 Pulse Rate [Apical] Pulse Rhythm Regular Regular Pulse Rhythm [Apical] Pulse Strength Normal Pulse Strength [Apical] Respiratory Rate 28 H Respiratory Effort / Characteristics Short of Breath Respiratory Depth Shallow Respiratory Pattern Blood Pressure 99/70 L Blood Pressure [Right Arm] Blood Pressure Mean 79 Blood Pressure Mean [Right Arm] Blood Pressure Position Sitting Blood Pressure Position [Right Arm] Pulse Oximetry 93 Oxygen Delivery Method Nasal Cannula Nasal Cannula Nasal Cannula Oxygen Flow Rate 2 2 2 08/23/18 00:32 08/23/18 00:33 08/23/18 01:43 Temperature Temperature Source Sepsis Recent Fever Within 48 Hours Sepsis New/Unexplained Change in Mental Status Sepsis Action Taken by Nursing Pulse Rate Pulse Rate [Apical] 80 84 Pulse Rhythm Pulse Rhythm [Apical] Regular Regular Pulse Strength Pulse Strength [Apical] Normal Normal Respiratory Rate 24 24 Respiratory Effort / Characteristics Short of Breath Respiratory Depth Shallow Shallow Respiratory Pattern Blood Pressure Blood Pressure [Right Arm] 93/63 L 77/44 L Blood Pressure Mean Blood Pressure Mean [Right Arm] 73 55 Blood Pressure Position Blood Pressure Position [Right Arm] Sitting Pulse Oximetry 2 L 93 Oxygen Delivery Method Nasal Cannula Nasal Cannula Nasal Cannula Oxygen Flow Rate 2 2 2 08/23/18 01:45 08/23/18 03:50 08/23/18 04:20 Temperature 36.5 C Temperature Source Oral Sepsis Recent Fever Within 48 Hours Sepsis New/Unexplained Change in Mental Status Sepsis Action Taken by Nursing Pulse Rate 83 Pulse Rate [Apical] 81 84 Pulse Rhythm Pulse Rhythm [Apical] Regular Pulse Strength Pulse Strength [Apical] Respiratory Rate 20 24 18 Respiratory Effort / Characteristics Non-Labored Spontaneous Respiratory Depth Normal Respiratory Pattern Blood Pressure 100/58 L Blood Pressure [Right Arm] 98/70 L 97/66 L Blood Pressure Mean Blood Pressure Mean [Right Arm] 79 76 Blood Pressure Position Blood Pressure Position [Right Arm] Pulse Oximetry 94 94 97 Oxygen Delivery Method Nasal Cannula Nasal Cannula Room Air Oxygen Flow Rate 2 2 08/23/18 04:42 Temperature Temperature Source Sepsis Recent Fever Within 48 Hours Sepsis New/Unexplained Change in Mental Status Sepsis Action Taken by Nursing Pulse Rate Pulse Rate [Apical] Pulse Rhythm Pulse Rhythm [Apical] Pulse Strength Pulse Strength [Apical] Respiratory Rate Respiratory Effort / Characteristics SOB on Exertion Respiratory Depth Respiratory Pattern Regular Blood Pressure Blood Pressure [Right Arm] Blood Pressure Mean Blood Pressure Mean [Right Arm] Blood Pressure Position Blood Pressure Position [Right Arm] Pulse Oximetry Oxygen Delivery Method Nasal Cannula Oxygen Flow Rate 2 GENERAL: Awake, alert, chronically ill-appearing HENT: Normocephalic, atraumatic. Oropharynx with dry mucous membranes and otherwise unremarkable. EYES: Normal conjunctiva. Sclera non-icteric. NECK: Supple. No nuchal rigidity. FROM. Mild JVD. RESPIRATORY: Scattered rhonchi throughout. CARDIAC: Regular rate, normal rhythm. Extremities warm and well perfused. Pulses equal. ABDOMEN: Soft, non-distended. No tenderness to palpation. No rebound or guarding. No masses. RECTAL: Deferred. MUSCULOSKELETAL: Chest examination reveals no tenderness. The back is symmetrical on inspection without obvious abnormality. There is no CVA tenderness to palpation. No joint edema. LOWER EXTREMITIES: Calves are equal size bilaterally and non-tender. No edema. No discoloration. NEURO: Normal sensorium. No sensory or motor deficits noted. SKIN: No rash or jaundice noted. Course 2322: The patient was evaluated in room A11B. A complete history and physical exam was performed. 0100: I reviewed the patient's case with Dr. Vaughn Fuentes, [facility] Hospitalist. He is requesting I contact Dr. Palacios. Dr. Fuentes will evaluate the patient for further management. 0111: Attempt to contact Dr. Palacios was unsuccessful as Dr. Palacios is not information technology security manager. Consultations Consultation #1: I reviewed the patient's case with Dr. Vaughn Fuentes, [facility] Hospitalist. He is requesting I contact Dr. Palacios. Dr. Fuentes will evaluate the patient for further management. Time: 01:00 Administered Medications Discontinued Medications Sodium Chloride (Nss) 500 mls @ 999 mls/hr IV .Q31M ONE Stop: 08/23/18 00:56 Last Infusion: 08/23/18 03:45 Dose: 0 mls/hr Documented by: [id number] Admin: 08/23/18 01:33 Dose: 999 mls/hr Documented by: [id number] Vancomycin HCl 1,500 mg/ (Sodium Chloride) 530 mls @ 200 mls/hr IV NOW ONE; Protocol Stop: 08/23/18 03:06 Last Infusion: 08/23/18 04:35 Dose: 0 mls/hr Documented by: [id number] Admin: 08/23/18 01:33 Dose: 200 mls/hr Documented by: [id number] Piperacillin Sod/Tazobactam Sod (Zosyn) 4.5 gm in 120 mls @ 30 mls/hr IV NOW ONE Stop: 08/23/18 04:27 Last Infusion: 08/23/18 03:45 Dose: 0 mls/hr Documented by: [id number] Admin: 08/23/18 01:33 Dose: 30 mls/hr Documented by: [id number] Medical Decision Making Differential Diagnosis Differential diagnosis includes: infections, reactive airway disease, pneumonia, pneumothorax, COPD, CHF, cardiac ischemia, pulmonary embolism, musculoskeletal, gastrointestinal, as well as others were entertained. Medical Records Attestation: I reviewed the patient's medical records. Home Medications Current Medication List: was personally reviewed by me Laboratory Data Attestation: I reviewed the patient's lab results. Result diagrams: 08/22/18 23:41 08/22/18 23:41 Lab Results 08/22/18 08/22/18 08/22/18 Range/Units 23:41 23:41 23:41 WBC 21.13 H (4.8-10.8) K/uL RBC 4.13 L (4.7-6.1) M/uL Hgb 12.9 L (14.0-18.0) g/dL Hct 37.8 L (42-52) % MCV 91.5 (80-100) fL MCH 31.2 (25-34) pg MCHC 34.1 (32-36) g/dL RDW Std Deviation 46.7 H (36.4-46.3) fL RDW Coeff of Zulma 14.1 (11.5-14.5) % Plt Count 263 (130-400) K/uL MPV 10.8 H (7.4-10.4) fL Immature Gran % (Auto) 0.6 % Neut % (Auto) 86.4 % Lymph % (Auto) 2.6 % Gem % (Auto) 8.5 % Eos % (Auto) 1.9 % Baso % (Auto) 0.0 % Immature Gran # (Auto) 0.12 H (0.00-0.02) K/uL Neut # (Auto) 18.26 H (1.4-6.5) K/uL Lymph # (Auto) 0.54 L (1.2-3.4) K/uL Gem # (Auto) 1.79 H (0.11-0.59) K/uL Eos # (Auto) 0.41 (0-0.5) K/uL Baso # (Auto) 0.01 (0-0.2) K/uL Absolute Nucleated RBC 0.02 H (0-0) K/uL Nucleated RBC % (auto) 0.1 % PT 13.0 H (9.0-12.0) Seconds INR 1.3 H (0.9-1.1) VBG pH (7.36-7.41) VBG pCO2 (38-50) mmHg VBG pO2 mmHg VBG HCO3 mmol/L VBG O2 Saturation % VBG Base Excess mEq/L Sodium 132 L (136-145) mmol/L Potassium 4.9 (3.5-5.1) mmol/L Chloride 98 (98-107) mmol/L Carbon Dioxide 28 (21-32) mmol/L Anion Gap 6.0 (3-11) BUN 51 H (7-18) mg/dl Creatinine 1.65 H (0.6-1.4) mg/dl Est Cr Clr Drug Dosing 37.5 ml/min Est GFR ( Amer) 45.1 Est GFR (Non-Af Amer) 38.9 BUN/Creatinine Ratio 30.8 H (10-20) Glucose 123 H (70-99) mg/dl Lactate (0.4-2.0) mmol/L Calcium 8.8 (8.5-10.1) mg/dl Phosphorus 4.3 (2.5-4.9) mg/dl Magnesium 2.9 H (1.8-2.4) mg/dl Total Bilirubin 0.5 (0.2-1) mg/dl Direct Bilirubin 0.2 (0-0.2) mg/dl AST 25 (15-37) U/L ALT 54 (12-78) U/L Alkaline Phosphatase 119 H (45-117) U/L Troponin I < 0.015 (0-0.045) ng/ml NT-Pro-B Natriuret Pep 1569 (0-1800) pg/ml Total Protein 6.9 (6.4-8.2) gm/dl Albumin 2.4 L (3.4-5.0) gm/dl Globulin 4.5 H (2.5-4.0) gm/dl Albumin/Globulin Ratio 0.5 L (0.9-2) Lipase 109 (73-393) U/L 08/22/18 08/22/18 Range/Units 23:41 23:53 WBC (4.8-10.8) K/uL RBC (4.7-6.1) M/uL Hgb (14.0-18.0) g/dL Hct (42-52) % MCV (80-100) fL MCH (25-34) pg MCHC (32-36) g/dL RDW Std Deviation (36.4-46.3) fL RDW Coeff of Zulma (11.5-14.5) % Plt Count (130-400) K/uL MPV (7.4-10.4) fL Immature Gran % (Auto) % Neut % (Auto) % Lymph % (Auto) % Gem % (Auto) % Eos % (Auto) % Baso % (Auto) % Immature Gran # (Auto) (0.00-0.02) K/uL Neut # (Auto) (1.4-6.5) K/uL Lymph # (Auto) (1.2-3.4) K/uL Gem # (Auto) (0.11-0.59) K/uL Eos # (Auto) (0-0.5) K/uL Baso # (Auto) (0-0.2) K/uL Absolute Nucleated RBC (0-0) K/uL Nucleated RBC % (auto) % PT (9.0-12.0) Seconds INR (0.9-1.1) VBG pH 7.38 (7.36-7.41) VBG pCO2 45 (38-50) mmHg VBG pO2 34 mmHg VBG HCO3 26 mmol/L VBG O2 Saturation 62.0 % VBG Base Excess 0.3 mEq/L Sodium (136-145) mmol/L Potassium (3.5-5.1) mmol/L Chloride (98-107) mmol/L Carbon Dioxide (21-32) mmol/L Anion Gap (3-11) BUN (7-18) mg/dl Creatinine (0.6-1.4) mg/dl Est Cr Clr Drug Dosing ml/min Est GFR ( Amer) Est GFR (Non-Af Amer) BUN/Creatinine Ratio (10-20) Glucose (70-99) mg/dl Lactate 2.2 H* (0.4-2.0) mmol/L Calcium (8.5-10.1) mg/dl Phosphorus (2.5-4.9) mg/dl Magnesium (1.8-2.4) mg/dl Total Bilirubin (0.2-1) mg/dl Direct Bilirubin (0-0.2) mg/dl AST (15-37) U/L ALT (12-78) U/L Alkaline Phosphatase (45-117) U/L Troponin I (0-0.045) ng/ml NT-Pro-B Natriuret Pep (0-1800) pg/ml Total Protein (6.4-8.2) gm/dl Albumin (3.4-5.0) gm/dl Globulin (2.5-4.0) gm/dl Albumin/Globulin Ratio (0.9-2) Lipase (73-393) U/L Imaging Data Attestation: I personally reviewed and interpreted this imaging study as follows: My Impression: XR chest 1V: cardiomegaly with pleural effusion which appears improved to stable but increased patchy densities of the right lower lung field suspicious for pneumonia ECG Data Attestation: I personally reviewed and interpreted this ECG as follows: Indication: SOB/dyspnea Rate (beats per minute): 78 Rhythm: normal sinus Findings: + other (left axis deviation, T wave and ST abnormality laterally); no acute ischemic change Blood Pressure Blood Pressure Findings: Low blood pressure Blood Pressure Disposition: further management by hospitalist MDM Narrative The patient is a pleasant 77-year-old gentleman with a past medical history of recent diagnosis of atrial flutter on , Parkinson disease with dysphagia and silent aspiration, recent diagnosis of lung mass/cancer, right pleural effusion with indwelling drain, pericardial effusion who presents to emergency department with worsening shortness of breath, cough/congestion, feverishness over the past week per hpi. Of note, right pleural drain was placed on and has been drain by visiting RN on Friday and earlier today. On arrival patient is ill-appearing, afebrile with blood pressure 90s/70s and on his baseline 2 L nasal cannula. Has dry mucous membranes but also mild JVD. He has diffuse wheezes and rhonchi most prominent in the right lung jimenez. EKG demons trates nonspecific ST and T wave abnormalities and otherwise no overt evidence of acute ischemia. Patient's chest x-ray per my preliminary review demonstrates stable to slightly improved right pleural effusion but with increased patchy densities in the right lower lung field that is suspicious for aspiration pneumonia given the patient's history. WBC 21K which is increased from last week and additionally with left shift. H/H 12.9/37.8 within patient's recent baseline range. Platelets within normal limits. Creatinine 1.65 which represents ANKUSH from patient's normal baseline range. Chemistry without acidosis however lactate is 2.2. Troponin negative. BNP 15K. Patient initially ordered for CT chest to further clarify lung findings however patient feels he is unable to lie flat. Thus, will defer at this time. Patient's overall presentation is concerning for possible sepsis with likely aspiration pneumonia. Case discussed with Dr. Fuentes, [facility] hospitalist, who will evaluate the patient for admission. Impression & Plan Sepsis, Aspiration pneumonia, Acute kidney injury Critical Care Time I have personally spent greater than 65 minutes of critical care time in the direct management of this patient. This includes bedside care, interpretation of diagnostic studies, and testing, discussion with consultants, patient, and family members, and other required patient management activities. This 65 minutes is in excess of all separately billable procedures. Critical Care Time: Yes Total Critical Care Time: 65 Discharge Plan Visit Data *Final* Discharge Date/Time: 08/23/18 03:50 Chief Complaint: Shortness of Breath/Dyspnea Stated Complaint: SOB ED Provider: Antwon Berrios Discharge Problem: Sepsis, Aspiration pneumonia, Acute kidney injury Patient Disposition: Admitted As Inpatient Discharge Instructions Interventions: ED Discharge Assessment Last Done: 08/23/18 03:50 Discharge Problem: Sepsis Qualifiers: Sepsis type: sepsis due to unspecified organism Qualified Code(s): A41.9 - Sepsis, unspecified organism Aspiration pneumonia Qualifiers: Aspiration pneumonia type: unspecified Laterality: right Lung location: lower lobe of lung Qualified Code(s): J69.0 - Pneumonitis due to inhalation of food and vomit The scribe's documentation has been prepared under my direction and personally reviewed by me in its entirety. I confirm that the note above accurately reflects all work, treatment, procedures, and medical decision making performed by me.
--- NOTE | 2018-08-23 03:10 | History & Physical Report ---
Date of Service August 23, 2018 Assessment & Plan (1) Shortness of breath: 77-year-old male was admitted on 23 Aug 2018 for worsening shortness of breath. Of note, patient was recently admitted from July 27- for atrial flutter, aspiration pneumonia, and severe dysphasia. Shortness of breath, pleural effusion, lung adenocarcinoma: C/o SOB over past two days. Strongly suspect this is entirely due to ongoing aspiration. No known home fevers but has had some "hot/cold" episodes. - In brief review of the medical record, evaluation by pulmonology on last admission note history of COPD with interstitial lung disease and concerns of underlying neoplasm. Underwent biopsy on which was positive for adenocarcinoma. Treated with Zosyn, then Augmentin for right-sided pneumonia. He most recently underwent insertion of a right Pleurx catheter on by Dr. 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 - Here, afebrile, not tachycardic, mildly tachypneic, and at his baseline 2 L nasal cannula oxygen requirement. WBC 21 and lactate 2.2. VBG pH and pCO2 okay. pCXR with a right pleural effusion that looks roughly unchanged from x- ray two days prior (formal rads read pending). Blood cultures sent. - In ED, given 500 mL NS IVF bolus. Started on vancomycin and Zosyn. - Repeat lactate. Continue IVF. Continue above antibiotics initially, though above no obvious evidence of infection outside of inflammatory process present. May be more of a pneumonitis process. - ED consulted thoracic surgery overnight. Will place formal consult for the day team. Dysphasia, chronic pulmonary aspiration: Thought to be related to his Parkinson's. On last admission patient failed a video swallow study with noted aspiration with all thickness liquids. His discharge instructions note recommending not to eat and to pursue a feeding tube, though apparently he declined at that time. Underwent bronchoscopy back on as well. - Converted his home pantoprazole to Pepcid IV. Hypotension: BP as low as 77/44. Given IVF, improved SBP to 100�s. - Held home metoprolol and triamterene/hydrochlorothiazide acutely. Hyponatremia: Admit Na 132. Provided IVF, will recheck in a.m. Hypermagnesemia: Admit Mg 2.9. Provided IVF, will recheck in a.m. Acute kidney injury: Admit Cr 1.65, BUN 51. Recent comparisons around 0.8. Likely some dehydration component. - We will gently rehydrate with LR at 75 ml/hr. Ongoing medical history: - Atrial flutter with RVR: Noted on last admission. Underwent MILAD and cardioversion. Placed on eliquis and Toprol for that at home. - Parkinson's disease: At home is on Rytary (carbidopa/levodopa) 23.75 / 95 mg, two cap at 7 am 12 pm and 5 pm. --- Will attempt to give this PO. - Anxiety: Unclear if patient is on clonazepam at home. - Pericardial effusion: Small pericardial effusion without evidence of tamponade seen on [id number] TTE. - Chronic systolic CHF: [id number] TTE noted EF 45%, global hypokinesis, no significant LV hypertrophy. --- Will attempt to continue home amiodarone. --- Held triamterene/hydrochlorothiazide (though per patient has not been taking it). Held metoprolol as well. - COPD, interstitial lung disease: Per patient and , is not on any medications for this at present. Code status: Per discussion with patient and at bedside, patient is DO NOT RESUSCITATE. Diet: N.p.o. See prior speech recommendations, including discharge instructions on last admit. DVT prophy: Usually on Eliquis at home. Will hold chemical anticoagulation overnight due to potential for acute procedure. Did order SCD�s. PT/OT: Ordered. Disbo: Admit to [facility] telemetry. (2) Dysphagia: (3) Chronic pulmonary aspiration: (4) Hypotension: (5) Hyponatremia: (6) Hypermagnesemia: (7) Acute kidney injury: (8) Atrial flutter with rapid ventricular response: (9) Parkinson disease: (10) Anxiety: (11) Pleural effusion: (12) Chronic systolic CHF (congestive heart failure): (13) COPD (chronic obstructive pulmonary disease): (14) Interstitial lung disease: History of Present Illness Primary Care Provider: Brian Yan MD 77-year-old male presents to the emergency department with his complaining of shortness of breath. - Patient notes this SOB began about two days ago. Says he developed a severe cough with any p.o. intake, including any small amounts of water. He notes feeling more hot and cold recently but denies any known fevers. He presently denies any pain including in his chest or abdomen. He denies any other acute concerns. - Patient notes a long history of smoking. Review of the medical record notes COPD, however patient says he does not use any inhalers. He is on 2 L nasal cannula oxygen at home. - Patient was recently hospitalized from July 27- for atrial flutter, aspiration pneumonia, and severe dysphasia. He also underwent placement of a right Pleurx catheter on July 21. His says that someone comes to their [facility] e to drain the catheter daily thus far, most recently the day prior to admission. -When asked about their working understanding of his aspiration diagnosis on last admission, his states that "no one to talk to us" about his severe aspiration of all liquids. She also mentions no one ever brought up the idea of a PEG placement (or as she calls it "feeding tube") for further nutrition. --- Past medical history includes dysphasia, lung adenocarcinoma, pulmonary effusion, atrial flutter with RVR, Parkinson's disease, anxiety, chronic systolic CHF, prostate cancer. --- Past surgical history includes AAA with surgical graft repair in 2008. --- Social history includes prior smoker. Presently lives at home with his . Allergies Allergy/AdvReac Type Severity Reaction Status Date / Time No Known Allergies Allergy Unknown NONE Unverified 08/23/18 00:28 Home Medications Home Medications Medication Instructions Recorded Confirmed Type PreviDent 1 applic DENTAL DAILY 07/27/18 08/23/18 History Rytary 2 cap PO QID 07/27/18 08/23/18 History clonazepam [Klonopin] 0.25 - 0.5 mg PO HS PRN 07/27/18 08/23/18 History guaifenesin [Mucinex] 1,200 mg PO Q12 #30 tab 08/02/18 08/23/18 Rx metoprolol succinate 50 mg PO QAM #30 tab 08/02/18 08/23/18 Rx tramadol [Ultram] 50 mg PO QID PRN #18 tab 08/20/18 08/23/18 Rx amiodarone 200 mg PO DAILY 08/23/18 08/23/18 History apixaban [Eliquis] 5 mg PO BID 08/23/18 08/23/18 History pantoprazole 40 mg PO DAILY 08/23/18 08/23/18 History triamterene-hydrochlorothiazid 1 cap PO DAILY 08/23/18 08/23/18 History Past Med/Surg History Medical History Anxiety Parkinson disease (Chronic) Brain cancer (Acute) Lung cancer (Acute) Prostate cancer (Chronic) Atrial flutter GERD (gastroesophageal reflux disease) Osteoarthritis Surgical History S/P AAA repair Family History Brother Heart disease MS Brother Stroke Other No pertinent family history Social History Preferred Language: Malay Communication Ability: Effective 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 Cardiovascular: Denies any chest pain or feeling of edema Gastrointestinal: Denies any abdominal pain, nausea/vomiting/diarrhea Musculoskeletal: Denies any acute extremity pains, myalgias, or focal weakness Skin: Denies any known acute rashes or lesions Neuro: Denies any headache, acute focal weakness or numbness. Physical Exam Physical Exam: GENERAL: Awake, alert, in no acute distress HENT: Normocephalic, atraumatic. Oropharynx mildly dry. EYES: Normal conjunctiva. Sclera non-icteric. NECK: Inspection normal. Non-tender. Supple and full ROM. CARDIAC: +S1S2 RRR, no murmurs. RESPIRATORY: Diffuse mild to moderate inspiratory wheezing in all lung jimenez. Significantly decreased breath sounds in the right lower field. A Pleurx catheter is present in the right lower posterior chest presently covered with a c/d/i dressing. No accessory muscle use. GI: +BS, soft, non-distended. No tenderness to palpation. No rebound or guarding. EXTREMITIES: No pedal edema or calf tenderness. Moving all extremities naturally and easily. NEURO: No gross neuro deficits. Speaking easily but with a raspy voice. Results & Data Vital Signs (Past 12 Hours) Vital Signs Temp Pulse Pulse Resp BP BP Pulse Ox 08/23/18 01:45 81 20 98/70 L 94 08/23/18 01:43 84 24 77/44 L 93 08/23/18 00:33 80 24 93/63 L 08/23/18 00:32 2 L 08/22/18 23:13 36.4 C L 79 28 H 99/70 L 93 Laboratory Results 08/22/18 08/22/18 08/22/18 Range/Units 23:53 23:41 23:41 WBC (4.8-10.8) K/uL RBC (4.7-6.1) M/uL Hgb (14.0-18.0) g/dL Hct (42-52) % MCV (80-100) fL MCH (25-34) pg MCHC (32-36) g/dL RDW Std Deviation (36.4-46.3) fL RDW Coeff of Zulma (11.5-14.5) % Plt Count (130-400) K/uL MPV (7.4-10.4) fL Immature Gran % (Auto) % Neut % (Auto) % Lymph % (Auto) % Reagan % (Auto) % Eos % (Auto) % Baso % (Auto) % Immature Gran # (Auto) (0.00-0.02) K/uL Neut # (Auto) (1.4-6.5) K/uL Lymph # (Auto) (1.2-3.4) K/uL Reagan # (Auto) (0.11-0.59) K/uL Eos # (Auto) (0-0.5) K/uL Baso # (Auto) (0-0.2) K/uL Absolute Nucleated RBC (0-0) K/uL Nucleated RBC % (auto) % PT 13.0 H (9.0-12.0) Seconds INR 1.3 H (0.9-1.1) VBG pH 7.38 (7.36-7.41) VBG pCO2 45 (38-50) mmHg VBG pO2 34 mmHg VBG HCO3 26 mmol/L VBG O2 Saturation 62.0 % VBG Base Excess 0.3 mEq/L Sodium (136-145) mmol/L Potassium (3.5-5.1) mmol/L Chloride (98-107) mmol/L Carbon Dioxide (21-32) mmol/L Anion Gap (3-11) BUN (7-18) mg/dl Creatinine (0.6-1.4) mg/dl Est Cr Clr Drug Dosing ml/min Est GFR ( Amer) Est GFR (Non-Af Amer) BUN/Creatinine Ratio (10-20) Glucose (70-99) mg/dl Lactate 2.2 H* (0.4-2.0) mmol/L Calcium (8.5-10.1) mg/dl Phosphorus (2.5-4.9) mg/dl Magnesium (1.8-2.4) mg/dl Total Bilirubin (0.2-1) mg/dl Direct Bilirubin (0-0.2) mg/dl AST (15-37) U/L ALT (12-78) U/L Alkaline Phosphatase (45-117) U/L Troponin I (0-0.045) ng/ml NT-Pro-B Natriuret Pep (0-1800) pg/ml Total Protein (6.4-8.2) gm/dl Albumin (3.4-5.0) gm/dl Globulin (2.5-4.0) gm/dl Albumin/Globulin Ratio (0.9-2) Lipase (73-393) U/L 08/22/18 08/22/18 Range/Units 23:41 23:41 WBC 21.13 H (4.8-10.8) K/uL RBC 4.13 L (4.7-6.1) M/uL Hgb 12.9 L (14.0-18.0) g/dL Hct 37.8 L (42-52) % MCV 91.5 (80-100) fL MCH 31.2 (25-34) pg MCHC 34.1 (32-36) g/dL RDW Std Deviation 46.7 H (36.4-46.3) fL RDW Coeff of Zulma 14.1 (11.5-14.5) % Plt Count 263 (130-400) K/uL MPV 10.8 H (7.4-10.4) fL Immature Gran % (Auto) 0.6 % Neut % (Auto) 86.4 % Lymph % (Auto) 2.6 % Reagan % (Auto) 8.5 % Eos % (Auto) 1.9 % Baso % (Auto) 0.0 % Immature Gran # (Auto) 0.12 H (0.00-0.02) K/uL Neut # (Auto) 18.26 H (1.4-6.5) K/uL Lymph # (Auto) 0.54 L (1.2-3.4) K/uL Reagan # (Auto) 1.79 H (0.11-0.59) K/uL Eos # (Auto) 0.41 (0-0.5) K/uL Baso # (Auto) 0.01 (0-0.2) K/uL Absolute Nucleated RBC 0.02 H (0-0) K/uL Nucleated RBC % (auto) 0.1 % PT (9.0-12.0) Seconds INR (0.9-1.1) VBG pH (7.36-7.41) VBG pCO2 (38-50) mmHg VBG pO2 mmHg VBG HCO3 mmol/L VBG O2 Saturation % VBG Base Excess mEq/L Sodium 132 L (136-145) mmol/L Potassium 4.9 (3.5-5.1) mmol/L Chloride 98 (98-107) mmol/L Carbon Dioxide 28 (21-32) mmol/L Anion Gap 6.0 (3-11) BUN 51 H (7-18) mg/dl Creatinine 1.65 H (0.6-1.4) mg/dl Est Cr Clr Drug Dosing 37.5 ml/min Est GFR ( Amer) 45.1 Est GFR (Non-Af Amer) 38.9 BUN/Creatinine Ratio 30.8 H (10-20) Glucose 123 H (70-99) mg/dl Lactate (0.4-2.0) mmol/L Calcium 8.8 (8.5-10.1) mg/dl Phosphorus 4.3 (2.5-4.9) mg/dl Magnesium 2.9 H (1.8-2.4) mg/dl Total Bilirubin 0.5 (0.2-1) mg/dl Direct Bilirubin 0.2 (0-0.2) mg/dl AST 25 (15-37) U/L ALT 54 (12-78) U/L Alkaline Phosphatase 119 H (45-117) U/L Troponin I < 0.015 (0-0.045) ng/ml NT-Pro-B Natriuret Pep 1569 (0-1800) pg/ml Total Protein 6.9 (6.4-8.2) gm/dl Albumin 2.4 L (3.4-5.0) gm/dl Globulin 4.5 H (2.5-4.0) gm/dl Albumin/Globulin Ratio 0.5 L (0.9-2) Lipase 109 (73-393) U/L Medications Administered Vancomycin HCl 1,500 mg/ (Sodium Chloride) 530 mls @ 200 mls/hr IV NOW ONE; Protocol Stop: 08/23/18 03:06 Last Admin: 08/23/18 01:33 Dose: 200 mls/hr Documented by: [id number] Piperacillin Sod/Tazobactam Sod (Zosyn) 4.5 gm in 120 mls @ 30 mls/hr IV NOW ONE Stop: 08/23/18 04:27 Last Admin: 08/23/18 01:33 Dose: 30 mls/hr Documented by: [id number] Discontinued Medications Sodium Chloride (Nss) 500 mls @ 999 mls/hr IV .Q31M ONE Stop: 08/23/18 00:56 Last Admin: 08/23/18 01:33 Dose: 999 mls/hr Documented by: [id number] Code Status & VTE Plan Code Status DO NOT RESUSCITATE VTE Prophylaxis Plan VTE Prophylaxis will be ordered: Yes Supervising Physician Co-Signing Physician Notes Attending addendum: I have physically seen this patient, have supervised the medical residents activities, and agree with the H&P unless as otherwise noted. Assessment and Plan: Shortness of breath/lung adenocarcinoma/right pleural effusion/pneumonia/recent placement of Pleurx catheter on July 21- Admit to [facility] telemetry. Continue vancomycin IV and Zosyn IV due to probable associated/causal chronic aspiration. Duonebs every 4 hours while awake and every 2 hours when necessary. IV fluid rehydration. Consult Dr. Palacios. Chronic aspiration/Parkinson's/patient continues with oral intake.- Reconsult speech. Patient and family somewhat confused about oral intake that is acceptable. Remainder of orders and notations as noted. Resident Activity Tracking Resident Involvement: Resident Care Provided Care Provided: Adult [facility] Medicine
[2018-08-23] MEDS ORDERED: PIPERACILL/TAZOBAC CONSULT ACTIVE PRN (04:32)
[2018-08-23] MEDS: PIPERACILLIN/TAZOBACTAM 3.375 GM in DEXTROSE 5% 100 ML IV SCH ×3 (06:12→22:16)
[2018-08-23] MEDS: LACTATED RINGER'S 1,000 ML IV SCH (06:12)
[2018-08-23 07:58] LABS: BUN Creatinine Ratio 33.7 (10-20); Calcium 8.8 mg/dl (8.5-10.1); Creatinine Clr Calc Pharmacy 43.3 ml/min; Est GFR (African American) 50.6; Est GFR (Non-African American) 43.7; Magnesium 2.7 mg/dl (1.8-2.4); Potassium 4.6 mmol/L (3.5-5.1)
--- NOTE | 2018-08-23 08:20 | XRay Report ---
SINGLE VIEW CHEST CLINICAL HISTORY: Atypical chest pain. FINDINGS: An AP, portable, upright chest radiograph is compared to study dated 08/20/2018. Correlation is made with chest CT dated 07/27/2018 The examination is degraded by portable technique and patient ro tation. A right-sided chest tube is unchanged in position. The heart is enlarged and there is athero sclerotic calcification of the thoracic aorta. There is mild pulmonary vascular congestion. Emphysema and chronic interstitial thickening are similar to previous. There are small pleural effusions, righ t larger than left with dense bibasilar consolidation. This is also greatest on the right. Atelectasi s is noted at the left lung base. No pneumothorax is seen. The skeletal structures are osteopenic. Th e bony thorax is grossly intact. IMPRESSION: 1. Cardiomegaly and emphysema with evidence of mild congestive failure. 2. A right-sided chest tube is unchanged in position. 3. There are right larger than left pleural effusions with dense right basilar consolidation. Mild co nsolidative change is seen at the left lung base. Electronically signed by: Lorenzo Zee M.D. 08/23/2018 8:19 AM
[2018-08-23] MEDS: CARBIDOPA/LEVODOPA 25/100MG TAB PO SCH ×3 (10:04→17:07)
[2018-08-23] MEDS: AMIODARONE 200 MG TAB PO SCH (10:04)
[2018-08-23] MEDS: FAMOTIDINE 20 MG in SYRINGE 3 ML IV SCH (10:30)
--- NOTE | 2018-08-23 11:14 | Pharmacy Report ---
Pharmacy Abx Initial Consult - Date of Service August 23, 2018 - Pharmacy Dosing Scope Date of Consult: 08/23/18 Consultation requested by: Dr. Honeycutt Pharmacy is consulted to initiate Vancomycin IV/PO dosing therapy, order appropriate labs and adjust drug dose/frequency. - Subjective The patient is a 77 year old M admitted on 08/23/18 03:00. - Objective Height: 5 ft 9 in Weight: 85.7 kg Vital Signs (Past 12hrs): Vital Signs Temp Pulse Pulse Resp BP BP Pulse Ox 08/23/18 10:35 36.6 C 80 19 98/65 L 95 08/23/18 08:00 36.7 C 68 18 151/83 H 93 08/23/18 07:33 36.4 C L 79 19 100/66 94 08/23/18 04:20 36.5 C 84 18 97/66 L 97 08/23/18 03:50 83 24 100/58 L 94 08/23/18 01:45 81 20 98/70 L 94 08/23/18 01:43 84 24 77/44 L 93 08/23/18 00:33 80 24 93/63 L 08/23/18 00:32 2 L 08/22/18 23:13 36.4 C L 79 28 H 99/70 L 93 Lab Results (24hrs): Laboratory Tests (24 Hours) 08/23/18 08/22/18 08/22/18 07:13 23:41 23:41 WBC 21.13 H Neut # (Auto) 18.26 H Creatinine 1.50 H 1.65 H Est Cr Clr Drug Dosing 43.3 37.5 Micro Results: 08/22/18 23:43 Blood Culture - Pending Blood 08/22/18 23:41 Blood Culture - Pending Blood - Risk Factors for Resistance * Hospitalization for 48 hours or more within the past 90 days - recently admitted 07/27-08/02 for aspiration pneumonia * Antimicrobial use within the last 90 days [Was on Zosyn during last admission and discharged on Augmentin] - Assessment & Plan Assessment 77 year old M admitted for worsening SOB. Mr. Perez was recently admitted from 07/27- for atrial flutter, aspiration p neumonia, and severe dysphasia. At that time, a Pleurx catheter was inserted into right chest. He and his family were advised upon discharge to avoid eating and drinking by mouth and pursue use of a feeding tube. His reports they have still been feeding him by mouth at home and he frequently aspirates. WBC 21, afebrile, chest xray shows consolidation in left lung base. Plan Vancomycin and Zosyn for treatment of possible (HCAP?) aspiration pneumonia. Vancomycin IV * Estimated PK Parameters: Vd 0.7 L/kg, Davis 0.04 hr-1, t1/2 17 hr * Loading dose: 1500 mg (17.5 mg/kg) IV x1 in the ED * Maintenance dose: 1250 mg IV (14.5 mg/kg) every 20 hours * Goal trough level : 15 to 20 mcg/mL * Will plan to check trough with 3rd maintenance dose if still on vancomycin * Will start maintenance dose a few hours early since LD was lower. Piperacillin/tazobactam * 4.5 g bolus administered over 30 minutes, then 3.375 g IV extended infusion every 8 hours for CrCl greater than 20 mL/min. Pharmacy will continue to follow and will adjust dose/frequency as necessary. Thank you.
--- NOTE | 2018-08-23 13:57 | History & Physical Bridge Note ---
Date of Service August 23, 2018 History & Physical Bridge Note Pt seen with at bedside. Ongoing swallowing issues. States he can swallow but frequently the food stops moving and will "come back up". No debbie pain, but this is uncomfortable for him. Denies current SOB. No chest pain. Would like to eat. States he does not want a feeding tube. is present and agrees with his decision. They have HHN active already. is a current chemo pt and has concerns about being able to care for him at home due to her own weakness issues. CV: RRR Lungs: clear, moving good air Flat affect Pt requests d/c to home. Discussed palliative care and speaking with their team first. They are not familiar with the concept but are willing to discuss with them. PT/OT/ST Pt requests a diet, discussed the risks with him and he would still like to eat given he does not want a feeding tube. Did order with nectar thick as per recent VSS Dysphagia likely related to Parkinson's. Possible value of ongoing ST tx. He is on 2L home O2 continuous and this is his current status
[2018-08-23 17:43] LABS: Appearance Urine Cloudy (Clear); Bacteria Urine Automated Negative (Negative); Bilirubin Urine Negative (Negative); Blood Urine Negative (Negative); Color Urine Yellow; Glucose Urine UA Negative (Negative); Ketones Urine Negative (Negative); Leukocyte Esterase Urine Negative (Negative); Nitrite Urine Negative (Negative); Protein Urine Negative (Negative); RBC Urine Automated 0-4 /hpf (0-4); Specific Gravity Urine 1.022 (1.000-1.030); Urobilinogen Urine Negative (Negative)
[2018-08-23] MEDS: [UNRECOGNIZED DRUG - OTHER] SCH ×2 (19:37→19:39)
[2018-08-23] MEDS: VANCOMYCIN HCL 1,250 MG in SODIUM CHLORIDE 0.9% 250 ML IV SCH (19:56)
[2018-08-23] MEDS ORDERED: Nursing to Pharmacy Communication ONE (20:32)
[2018-08-24] MEDS: [UNRECOGNIZED DRUG - OTHER] SCH ×4 (00:53→23:36)
[2018-08-24] MEDS: LACTATED RINGER'S 1,000 ML IV SCH ×2 (04:46→17:22)
[2018-08-24] MEDS: PIPERACILLIN/TAZOBACTAM 3.375 GM in DEXTROSE 5% 100 ML IV SCH ×3 (06:34→21:35)
[2018-08-24] MEDS: CARBIDOPA/LEVODOPA 25/100MG TAB PO SCH ×3 (06:36→17:21)
[2018-08-24 06:49] LABS: Creatinine Clr Calc Pharmacy 46.3 ml/min; Est GFR (Non-African American) 47.5
--- NOTE | 2018-08-24 08:18 | Surgery Progress Note ---
Date of Service August 24, 2018 Assessment & Plan (1) Pleural effusion: -pt. has a right pleurex in place -this was drained for about 300 cc this mornig -continue to drain daily -we will continue to follow with you while pt. is hospitalized Subjective Pt. denies SOB. No pain with drainage of pleurex. he did not reports significant improvement of breathing when drained this mornig. Physical Exam Respiratory: normal respiratory effort; does not use accessory muscles BS are decreased at bases Results & Data Vital Signs (Past 12 Hours) Vital Signs Temp Pulse Pulse Resp BP Pulse Ox 08/24/18 08:01 36.5 C 92 H 18 99/66 L 96 08/24/18 04:48 36.8 C 91 H 18 90/62 L 92 08/23/18 23:15 36.5 C 86 18 103/70 92 08/23/18 22:20 88
[2018-08-24] MEDS: AMIODARONE 200 MG TAB PO SCH (08:47)
[2018-08-24] MEDS: FAMOTIDINE 20 MG in SYRINGE 3 ML IV SCH (08:49)
--- NOTE | 2018-08-24 11:29 | Palliative Care Consultation ---
Date of Consultation August 24, 2018 Assessment & Plan (1) Palliative care encounter: This is a 77-year-old male who presented to the ED with his as he was experiencing SOB and a cough x 2 days. Patient has been recently admitted to the hospital and discharged on 08/02 for a-flutter, aspiration PNA, and dysphagia. A R Pleur-X catheter was placed on 07/21 for suspected malignant perfusion and most recently today drained 300mL. Additional PMH includes: dysphagia, lung adenocarcinoma, pulmonary effusions, rapid A-Fib, Parkinson's Disease, anxiety, CHF, prostate CA, AAA with surgical graft repair in 2008. -I met with the patient and his , Fadia, at the bedside. Patient was sitting in his bedside chair, oriented to person and location, but not able to hold full conversation due to confusion -Patient's , Fadia, was weepy during our visit - understandably, she is currently undergoing treatment for lung cancer with liver and brain mets. Fadia expressed she does not feel she can care for him at home anymore. -She says that they (patient and her) have had conversation before about if he ever could not care for himself that he would be ok with going to a senior care. -Fadia has concerns about her not waking at night if he needs something, etc. She is also worried about his level of confusion as well. -We did complete a POLST form at the bedside indicating : DNR/DNI, Comfort Measures only upon discharge with avoidance of re-hospitalizations, no artificial nutrition/hydration, and a trial of antibiotics with comfort as main goal. This was placed on the patients chart. -Fadia requested that we try to have him get a little bit stronger prior to a full transition to hospice. She is not quire sure if she would want him to come home on hospice or stay at a SNF - adviased that case management could follow up while here and the conversation should continue upon discharge, but based on patient and complex medical illness' would think remaining at a SNF on Hospice would be in both best interests. -PT/OT was ordered yesterday, so will await their direction as well on if patient is skillable or not. -CM made aware for [facility] (patient choice) referral to be placed. -PPS: 40% (2) Adenocarcinoma, lung: -Interstitial lung disease -Conservative measures. (3) Parkinson disease: -Likely related to worsening dysphagia -Pt takes Tytary 0700, 1200, 1700. -Due to patient's dysphagia he is on honey-thickened liquids. This was advanced to a soft diet today; however, when it came to the room, he did cough considerably with this. I would suggest a full liquid diet or at most, applesauce with easily soft items. (4) Pleural effusion: -malignancy suspected -R sided Pleur-X catheter placed on 08/20 and has been drained daily. -Today, 300mL removed -Palliative in nature due to malignancy suspicion -This can be managed at [facility] or approved SNF upon discharge Supervising Physician Co-Signing Physician Notes Chart reviewed, patient seen and examined, no family at bedside PE: Patient in no acute distress HEENT: EOMI, hearing within normal limits Respirations: Diminished breath sounds on the right, clear on left, no respiratory distress or increased work of breathing CV: Regular rate, no edema Abdomen: Soft, nontender Extremities: Generalized weakness Neuro: Oriented to person and place Agree with above note, assessment and plan as per SULLY Mazariegos-will continue to follow and assist family with medical decision making. Plan at this time is to go to [facility] for rehab with possible transition to hospice pending outcome of rehab. History of Present Illness Reason for Consultation: Goals of care Requesting Physician: Eduardo Toth DO Attending Physician: Daniela Toth DO History of Present Illness This is a 77-year-old male who presented to the ED with his as he was experiencing SOB and a cough x 2 days. Patient has been recently admitted to the hospital and discharged on 08/02 for a-flutter, aspiration PNA, and dysphagia. A R Pleur-X catheter was placed on 07/21 for suspected malignant perfusion and most recently today drained 300mL. Additional PMH includes: dysphagia, lung adenocarcinoma, pulmonary effusions, rapid A-Fib, Parkinson's Disease, anxiety, CHF, prostate CA, AAA with surgical graft repair in 2008. Palliative Care was consulted to discuss goals of care. Please see the Assessment and Plan for further details. Thank you kindly for involving our team with this patient. We will continue to follow as needed. Allergies Allergy/AdvReac Type Severity Reaction Status Date / Time No Known Allergies Allergy Unknown NONE Unverified 08/23/18 00:28 Home Medications Home Medications Medication Instructions Recorded Confirmed Type PreviDent 1 applic DENTAL DAILY 07/27/18 08/23/18 History Rytary 2 cap PO QID 07/27/18 08/23/18 History clonazepam [Klonopin] 0.25 - 0.5 mg PO HS PRN 07/27/18 08/23/18 History guaifenesin [Mucinex] 1,200 mg PO Q12 #30 tab 08/02/18 08/23/18 Rx metoprolol succinate 50 mg PO QAM #30 tab 08/02/18 08/23/18 Rx tramadol [Ultram] 50 mg PO QID PRN #18 tab 08/20/18 08/23/18 Rx amiodarone 200 mg PO DAILY 08/23/18 08/23/18 History apixaban [Eliquis] 5 mg PO BID 08/23/18 08/23/18 History pantoprazole 40 mg PO DAILY 08/23/18 08/23/18 History triamterene-hydrochlorothiazid 1 cap PO DAILY 08/23/18 08/23/18 History Patient History Medical History Anxiety Parkinson disease (Chronic) Brain cancer (Acute) Lung cancer (Acute) Prostate cancer (Chronic) Atrial flutter GERD (gastroesophageal reflux disease) Osteoarthritis Surgical History S/P AAA repair Family History Brother Heart disease [place] Brother Stroke Other No pertinent family history Social History Preferred Language: Khmer Communication Ability: Effective Plater Apprentice Required: No Beliefs That Will Affect Care: None marital status: Current Living Situation: Spouse Current Living Situation Comment: lives with Feels Safe at Home: Yes Safety Concerns: Feels Safe At This Time Smoking Status: Never smoker Second Hand Exposure: No Hx Alcohol Use: No Hx Substance Use: No Review of Systems Review of Systems: General: Patient denies pain sitting in his bedside chair HEENT: Pt denies SNIDER, dizziness, visual changes CV: Pt denies chest pain, palpitations Resp: Pt denies shortness of breath GI: Pt states it is hard to eat, but he wants to. Pt denies abdominal pain, N/V/D : Pt denies changes in his urination Skin: Pt denies any skin changes Physical Exam Constitutional: + ill appearing, + thin and comfortable Eyes: PERRL, conjunctivae normal, anicteric sclerae ENMT: external ear and nose normal, oropharynx normal Neck: trachea midline, no thyromegaly Respiratory: Auscultation: + diminished lung sounds and + rhonchi right lower chest wall pleur-X catheter Cardiovascular: RRR, no murmur, no edema Rate/Rhythm: regular rhythm Vessels: normal peripheral pulses Extremities: normal capillary refill Gastrointestinal (Abdomen): normal bowel sounds, soft, nontender, no hepatosplenomegaly Skin: normal turgor pleur-x catheter C/D/I Psychiatric: Orientation: alert, oriented to person and oriented to place (confused to complexity of medical condition and details of admission) Eye Contact: good eye contact Affect: + flat affect Insight: + impaired i nsight Genitourinary: voids in urinal Results & Data Vital Signs (Past 12 Hours) Vital Signs Temp Pulse Pulse Resp BP Pulse Ox 08/24/18 09:01 90 08/24/18 08:01 36.5 C 92 H 18 99/66 L 96 08/24/18 04:48 36.8 C 91 H 18 90/62 L 92 Time Spent Midlevel Total time spent 100 minutes with > 50% of that time spent reviewing the chart, assessing the patient, discussing goals of care, completing a POLST form at the bedside and discussing with IDT.
[2018-08-24] MEDS: VANCOMYCIN HCL 1,250 MG in SODIUM CHLORIDE 0.9% 250 ML IV SCH (14:05)
--- NOTE | 2018-08-24 19:50 | Hospitalist Progress Note ---
Date of Service August 24, 2018 Assessment & Plan (1) Shortness of breath: 77-year-old male was admitted on 23 Aug 2018 for worsening shortness of breath. Of note, patient was recently admitted from July 27- for atrial flutter, aspiration pneumonia, and severe dysphasia. Shortness of breath, pleural effusion, lung adenocarcinoma: - In brief review of the medical record, evaluation by pulmonology on last admission note history of COPD with interstitial lung disease and concerns of underlying neoplasm. Underwent biopsy on which was positive for adenocarcinoma. Treated with Zosyn, then Augmentin for right-sided pneumonia. He most recently underwent insertion of a right Pleurx catheter on by Dr. 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 CXR with a right pleural effusion stable from prior CXR Blood cultures sent. started on vancomycin and Zosyn. Likely aspiration event given recent speech eval findings, which is likely related to pt's Parkinson's Pt and do not wish for any sort of feeding tube placement - ED consulted thoracic surgery overnight. Will place formal consult for the day te (2) Dysphagia: Dysphasia, chronic pulmonary aspiration: Thought to be related to his Park inson's. On last admission patient failed a video swallow study with noted aspiration with all thickness liquids. Pt and do not want any sort of feeding tubes Palliative care c/s done today, see note for details (3) Chronic pulmonary aspiration: See above (4) Hypotension: BP as low as 77/44. Given IVF, improved SBP to 100�s. - Hold home metoprolol and triamterene/hydrochlorothiazide for now (5) Hyponatremia: Admit Na 132 Monitor (6) Hypermagnesemia: Monitor with IVF (7) Acute kidney injury: Admit Cr 1.65, BUN 51. Recent comparisons around 0.8. Likely some dehydration component. Monitor with IVF (8) Atrial flutter with rapid ventricular response: Noted on last admission Underwent MILAD and cardioversion at that time holding Toprol for hypoTN and eliquis was held for possible procedure, will restart given no procedures (9) Parkinson disease: At home is on Rytary, continue (10) Anxiety: Unclear if patient is on clonazepam at home. (11) Pleural effusion: Small pericardial effusion without evidence of tamponade seen on recent TTE. (12) Chronic systolic CHF (congestive heart failure): Recent MILAD noted with low EF and global hypokinesis, no significant LV hypertrophy. --- Will attempt to continue home amiodarone. --- Held triamterene/hydrochlorothiazide (though per patient has not been taking it). Held metoprolol as well. (13) COPD (chronic obstructive pulmonary disease): No current home meds (14) Interstitial lung disease: No current home meds Subjective Pt has no new concerns today. Ongoing swallowing issues. Denies SOB or chest pain. is not present today, but was present earlier to discuss pt's care with palliative care. Pt denies fever, abd pain, n/v/c/d, LE pain or swelling. Review of Systems Review of Systems: Pertinent positives and negatives reviewed in HPI--all others negative Physical Exam Constitutional: WD/WN, vitals as above Eyes: normal visual jimenez by confrontation and + anicteric sclerae Neck: normal visual inspection and trachea midline Respiratory: normal respiratory effort Auscultation: + crackles Cardiovascular: Rate/Rhythm: regular rate and regular rhythm Gastrointestinal (Abdomen): Inspection/Auscultation: abdomen not distended Percussion/Palpation: abdomen soft; abdomen nontender Musculoskeletal: Head/Neck/Chest: normocephalic and head atraumatic negative for edema, peripheral pulses intact Skin: no rashes, warm and dry Neurologic: awake; not confused Speech / Cognition: normal speech Psychiatric: A+Ox3, euthymic affect Results & Data Vital Signs (Past 12 Hours) Vital Signs Temp Pulse Pulse Resp BP BP Pulse Ox 08/24/18 15:07 36.5 C 89 20 106/74 99 08/24/18 13:58 95 08/24/18 11:51 36.4 C L 92 H 19 97/67 L 96 08/24/18 09:01 90 08/24/18 08:01 36.5 C 92 H 18 99/66 L 96
[2018-08-25] MEDS: LACTATED RINGER'S 1,000 ML IV SCH (01:59)
[2018-08-25] MEDS ORDERED: ALBUTEROL 0.083% NEBU SOLN 3 ML VIAL NEB STA (04:56)
[2018-08-25] MEDS: PIPERACILLIN/TAZOBACTAM 3.375 GM in DEXTROSE 5% 100 ML IV SCH ×3 (05:45→23:02)
--- NOTE | 2018-08-25 06:20 | Progress Note ---
Date of Service August 25, 2018 Received page overnight that patient had more audible breathing and low 90's SpO2. Respiratory went to bedside and provided an albuterol neb (with some subsequent tachycardia) and asked for suctioning. pCXR shows more hazy opacity in the right lung which I suspect is aspiration-related. Went to patient's bedside around 6:10, found him sleeping, no sonorous breathing, and appeared comfortable on humidified NC oxygen. From review of the notes, it seems patient is headed towards comfort care. Guillermo Honeycutt, PGY2 Overnight call Results & Data Vital Signs (Past 12 Hours) Vital Signs Temp Pulse Resp BP BP Pulse Ox 08/25/18 05:35 118 H 20 95 08/24/18 23:36 36.6 C 95 H 20 102/67 96 08/24/18 20:01 36.8 C 92 H 20 108/73 90
--- NOTE | 2018-08-25 06:21 | XRay Report ---
XR chest 1V portable CLINICAL HISTORY: increased secretions, rhonchi, eval for edema SHORTNESS OF BREATH COMPARISON STUDY: 08/22/2018 FINDINGS: The heart remains enlarged. Right-sided chest tube remains unchanged in position. There is radiographic evidence of interstitial pulmonary edema. There is an increasing right pleural effusion. There is associated right lower lobe atelectasis/consolidation.[ IMPRESSION: 1. Cardiomegaly and asymmetric pulmonary edema pattern 2. Increasing right pleural effusion with associated right basilar atelectasis/consolidation. Electronically signed by: Reno Busby M.D. 08/25/2018 6:19 AM
[2018-08-25] MEDS: CARBIDOPA/LEVODOPA 25/100MG TAB PO SCH ×3 (06:28→16:45)
[2018-08-25 06:39] LABS: Creatinine Clr Calc Pharmacy 49.1 ml/min; Est GFR (Non-African American) 50.9
[2018-08-25] MEDS: [UNRECOGNIZED DRUG - OTHER] SCH ×3 (07:34→23:44)
[2018-08-25] MEDS: AMIODARONE 200 MG TAB PO SCH (07:36)
[2018-08-25] MEDS: FAMOTIDINE 20 MG in SYRINGE 3 ML IV SCH (07:54)
[2018-08-25 09:26] LABS: Basophils # (auto) 0.01 K/uL (0-0.2); Basophils % (auto) 0.1 %; Eosinophils # (auto) 0.83 K/uL (0-0.5); Eosinophils % (auto) 4.3 %; Hematocrit (blood only) 40.3 % (42-52); Immature Granulocytes # (auto) 0.17 K/uL (0.00-0.02); Immature Granulocytes % (auto) 0.9 %; Lymphocytes # (auto) 0.58 K/uL (1.2-3.4); Mean Corpuscular Hgb Conc 32.3 g/dL (32-36); Mean Corpuscular Volume 93.5 fL (80-100); Mean Platelet Volume 11.1 fL (7.4-10.4); Monocytes # (auto) 1.68 K/uL (0.11-0.59); Monocytes % (auto) 8.7 %; Neutrophils # (auto) 16.09 K/uL (1.4-6.5); Platelet Count 239 K/uL (130-400); RDW Coefficient of Variation 14.2 % (11.5-14.5); RDW Standard Deviation 48.7 fL (36.4-46.3); Red Blood Count 4.31 M/uL (4.7-6.1); White Blood Count 19.36 K/uL (4.8-10.8)
[2018-08-25 10:26] LABS: BUN Creatinine Ratio 26.5 (10-20); Calcium 8.6 mg/dl (8.5-10.1); Creatinine Clr Calc Pharmacy 49.5 ml/min; Est GFR (African American) 59.6; Est GFR (Non-African American) 51.4; Potassium 4.4 mmol/L (3.5-5.1)
--- NOTE | 2018-08-25 11:03 | Palliative Care Progress Note ---
Date of Service August 25, 2018 Assessment & Plan (1) Palliative care encounter: -Patient continues to be treated with IV abx for likely aspiration pneumonia. -Patient appears clinically worse today-- increased agitation and confusion. Crawling out of bed. at bedside this morning during my visit. -CXR last evening showed worsening pleural effusion. Increased tracheal secretions and moist breath sounds. wants patient to be comfortable, is okay with secondary side effects of comfort medications, but requested that he have something available for comfort. -Will order Roxanol 2.5mg PO Q3h PRN pain or SOB. Low threshold to increase this dose, but requested to start with smallest dose. -If patient's condition continues to deteriorate, would stop all IV abx and active treatment and tranisition to ANALYTICS DIRECTOR. I discussed this with patient's . She would be agreeable-- please call her with any change in condition. -Plan is for ptient to [facility] go to [facility], skilled then transition to hospice. With today's worsening in condition, I don't see patient being appropriate for skilled rehab. Will continue to follow. Either way, needs to go to SNF for eventual hospice care. (2) Adenocarcinoma, lung: (3) Parkinson disease: (4) Pleural effusion: Subjective Patient had change in condition over night. Increased pulmonary congestion and increased secretions. CXR obtained, had to be suctioned by respiratory therapist. Review of Systems Review of Systems: Increased agitation/confusion made ROS difficult, but patient denies pain, SOB, or N/V. Physical Exam Physical Exam: Constitutional + ill appearing, + thin, +restless Eyes PERRL, conjunctivae normal, anicteric sclerae ENMT external ear and nose normal, oropharynx normal Neck trachea midline, no thyromegaly Respiratory Auscultation: + diminished lung sounds and + rhonchi right lower chest wall pleur-X catheter Cardiovascular RRR, no murmur, no edema Rate/Rhythm: regular rhythm Vessels: normal peripheral pulses Extremities: normal capillary refill Gastrointestinal (Abdomen) normal bowel sounds, soft, nontender, no hepatosplenomegaly Skin +pallor Psychiatric Orientation: alert, oriented to person and oriented to place Restless in bed, somewhat agitated, non-aggressive Results & Data Vital Signs (Past 12 Hours) Vital Signs Temp Pulse Resp BP BP Pulse Ox 08/25/18 08:18 130 H 08/25/18 07:00 36.0 C L 139 H 20 92/63 L 93 08/25/18 05:35 118 H 20 95 08/24/18 23:36 36.6 C 95 H 20 102/67 96 Time Spent Midlevel 40 minutes with >50% of time spent at bedside with patient and family discussing condition and GOC.
[2018-08-25] MEDS: VANCOMYCIN HCL 1,250 MG in SODIUM CHLORIDE 0.9% 250 ML IV SCH (12:18)
[2018-08-25] MEDS: LEVALBUTEROL HCL 1.25 MG/3 ML NEB NEB SCH ×2 (13:43→19:20)
[2018-08-25] MEDS: ACETYLCYSTEINE 20% INHAL SOLN ***DISPENSED BY RESP. INH SCH ×2 (13:43→19:21)
--- NOTE | 2018-08-25 14:48 | Progress Note ---
DATE: 08/25/2018 Mr. Perez is confused. He has significant opacification on his x-ray today of his right lower lobe. We sent that he has had pretty persistent opacification for the last few days. 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 They drained about 200 mL, bit of a serous colored fluid. This was done after his x-ray today. On 4 liters, he is on 97% saturation. Five days ago, his fluid was negative for any growth or infection. I do not think that we would do anything different. I would continue to follow along with him. I would not put him through thrombolytic therapy through his chest tube with a MIST-2 protocol at this point. JAGDISHD
--- NOTE | 2018-08-25 15:42 | Hospitalist Progress Note ---
Date of Service August 25, 2018 Assessment & Plan (1) Shortness of breath: 77-year-old male was admitted on 23 Aug 2018 for worsening shortness of breath. Of note, patient was recently admitted from July 27- for atrial flutter, aspiration pneumonia, and severe dysphasia. Shortness of breath, pleural effusion, lung adenocarcinoma: - In brief review of the medical record, evaluation by pulmonology on last admission note history of COPD with interstitial lung disease and concerns of underlying neoplasm. Underwent biopsy on which was positive for adenocarcinoma. Treated with Zosyn, then Augmentin for right-sided pneumonia. He most recently underwent insertion of a right Pleurx catheter on by Dr. 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 CXR with a right pleural effusion stable from prior CXR Blood cultures sent. started on vancomycin and Zosyn. Likely aspiration event given recent speech eval findings, which is likely related to pt's Parkinson's Pt and do not wish for any sort of feeding tube placement Dr. Palacios is following and will continue with current management of R Pleurx Adding mucomyst to help with upper airway sounds and likely poor clearing mechanism Planning on transitioning to [facility] when stable, no beds currently available (2) Dysphagia: Dysphasia, chronic pulmonary aspiration: Thought to be related to his Parkinson's. On last admission patient failed a video swallow study with noted aspiration with all thickness liquids. Pt and do not want any sort of feeding tubes Pt seen by palliative care, see their note for details (3) Chronic pulmonary aspiration: See above (4) Hypotension: BP as low as 77/44. Given IVF, improved SBP to 100�s. - Hold home metoprolol and triamterene/hydrochlorothiazide for now (5) Hyponatremia: Admit Na 132, now stable Monitor (6) Hypermagnesemia: Monitor with IVF (7) Acute kidney injury: Admit Cr 1.65, BUN 51. Recent comparisons around 0.8. Likely some dehydration component. Monitor with IVF (8) Atrial flutter with rapid ventricular response: Noted on last admission Underwent MILAD and cardioversion at that time holding Toprol for hypoTN and eliquis was held for possible procedure, will restart given no procedures (9) Parkinson disease: At home is on Rytary, continue (10) Anxiety: Unclear if patient is on clonazepam at home. (11) Pleural effusion: Small pericardial effusion without evidence of tamponade seen on recent TTE. (12) Chronic systolic CHF (congestive heart failure): Recent MILAD noted with low EF and global hypokinesis, no significant LV hypertrophy. --- Will attempt to continue home amiodarone. --- Held triamterene/hydrochlorothiazide (though per patient has not been taking it). Held metoprolol as well. (13) COPD (chronic obstructive pulmonary disease): No current home meds (14) Interstitial lung disease: No current home meds Subjective Pt with some SOB overnight. CXR noted for increase in R sided pleural effusion. feels that pt is doing better. He did eat some, but appetite is low and c hoking/coughing is an issue. He denies any pain other than discomfort related to his swallowing. Pt denies fever, chest pain, abd pain, n/v/c/d, LE pain or swelling. Review of Systems Review of Systems: Pertinent positives and negatives reviewed in HPI--all others negative Physical Exam Constitutional: WD/WN, vitals as above Eyes: normal visual jimenez by confrontation and + anicteric sclerae Neck: normal visual inspection and trachea midline Respiratory: normal respiratory effort Auscultation: + crackles upper airway sounds noted at bedside Cardiovascular: Rate/Rhythm: regular rate and regular rhythm Gastrointestinal (Abdomen): Inspection/Auscultation: abdomen not distended Percussion/Palpation: abdomen soft; abdomen nontender Musculoskeletal: Head/Neck/Chest: normocephalic and head atraumatic Skin: no rashes, warm and dry Neurologic: awake; not confused Speech / Cognition: normal speech Psychiatric: A+Ox3, euthymic affect Results & Data Vital Signs (Past 12 Hours) Vital Signs Temp Pulse Pulse Resp BP BP Pulse Ox 08/25/18 15:00 36.4 C L 118 H 20 92/64 L 99 08/25/18 13:46 120 H 20 97 08/25/18 08:18 130 H 08/25/18 07:00 36.0 C L 139 H 20 92/63 L 93 08/25/18 05:35 118 H 20 95
[2018-08-25] MEDS: MoRPHine SULFATE 5 MG/0.25 ML UDP PO PRN ×2 (16:38→19:46)
[2018-08-25] MEDS ORDERED: LEVALBUTEROL HCL 1.25 MG/3 ML NEB NEB SCH (20:00)
[2018-08-26] MEDS: MoRPHine SULFATE 5 MG/0.25 ML UDP PO PRN ×2 (03:50→06:24)
[2018-08-26] MEDS: PIPERACILLIN/TAZOBACTAM 3.375 GM in DEXTROSE 5% 100 ML IV SCH ×3 (05:54→14:31)
[2018-08-26] MEDS: CARBIDOPA/LEVODOPA 25/100MG TAB PO SCH ×3 (06:21→17:05)
[2018-08-26] MEDS: VANCOMYCIN TROUGH ONE ×2 (06:21→06:49)
[2018-08-26] MEDS: VANCOMYCIN HCL 1,250 MG in SODIUM CHLORIDE 0.9% 250 ML IV SCH (06:49)
[2018-08-26] MEDS: LEVALBUTEROL HCL 1.25 MG/3 ML NEB NEB SCH ×2 (07:14→19:11)
[2018-08-26] MEDS: ACETYLCYSTEINE 20% INHAL SOLN ***DISPENSED BY RESP. INH SCH (07:15)
[2018-08-26 07:21] LABS: Creatinine Clr Calc Pharmacy 29.3 ml/min; Est GFR (African American) 31.7; Est GFR (Non-African American) 27.3
[2018-08-26] MEDS: [UNRECOGNIZED DRUG - OTHER] SCH ×3 (07:47→23:49)
[2018-08-26] MEDS: AMIODARONE 200 MG TAB PO SCH (07:47)
[2018-08-26] MEDS: FAMOTIDINE 20 MG in SYRINGE 3 ML IV SCH (07:47)
[2018-08-26] MEDS ORDERED: FUROSEMIDE 20 MG in SYRINGE 0 ML IV STA (08:36)
[2018-08-26] MEDS ORDERED: LORazepam 0.5 MG/1 ML VIAL IV PRN (08:45)
[2018-08-26] MEDS ORDERED: ATROPINE SULFATE 1% OP SOLN 2 ML BTL PO PRN (08:45)
[2018-08-26] MEDS ORDERED: SCOPOLAMINE 1.5 MG TDSY TD SCH (08:45)
[2018-08-26] MEDS: MoRPHine SULFATE 2 MG/ML CARP IV PRN ×2 (09:06→16:06)
--- NOTE | 2018-08-26 09:11 | Pharmacy Report ---
Pharmacy Abx Dose Short Note - Date of Service August 26, 2018 - Assessment & Plan Assessment 77 year old M receiving Vancomycin for treatment of aspiration HCAP. Day # 4 of antimicrobial therapy. Microbiology 08/22/18 23:43 Blood Blood Culture - Preliminary No growth to date. 08/22/18 23:41 Blood Blood Culture - Preliminary No growth to date. Plan Vancomycin * Trough level of 20.3 mcg/mL is therapeutic, however patient patient's serum creatinine has increased from 1.4 on 08/24 to 2.21 today and Crcl = 29.3 today. * Since renal function has worsened and clearance of Vancomycin will be affected, Vanco was put on hold today until we get a random level tomorrow AM around 24 hrs after today's dose at 0700 AM. * Dosing will be re-assessed tomorrow after level obtained. * Goal trough level for Pneumonia: 15 to 20 mcg/mL Pharmacy will continue to follow and will adjust dose/frequency as necessary. Thank you.
--- NOTE | 2018-08-26 10:46 | Hospitalist Progress Note ---
Date of Service August 26, 2018 Assessment & Plan (1) Acute respiratory failure with hypoxia: Multifactorial - right-sided extensive lung cancer, probable aspiration pneumonia, possible acute/chronic systolic CHF, rapid a.fib/flutter, etc. Has declined considerably in the last 24 hours per family. He is visibly in distress, unable to eat, etc. has elected to transition to comfort care measures at this time. I agree w/ such. Place robin. Lasix 20mg IV x1. Scop patch. Morphine q1h prn. Ativan q3-q4h prn. Atropine drops prn. Suctioning. NC O2 for comfort. Stop all vitals, labs, and unnecessary meds. (2) Atrial fibrillation with RVR: EKG this am confirms such. Has needed cardioversion in the past for this. He is hypotensive - poor candidate for AV domingo agents. (3) Adenocarcinoma, lung: (4) COPD (chronic obstructive pulmonary disease): (5) Interstitial lung disease: (6) Acute kidney injury: Cr 2.2 this am (7) Aspiration pneumonia: (8) Dysphagia: 2nd to PD (9) Pericardial effusion: malignant (10) Parkinson disease: (11) Chronic systolic CHF (congestive heart failure): Subjective called by staff early this am that patient was in respiratory distress with audible crackles/girgling breath sounds upon arrival patient with retractions, tachypnea, visible dyspnea only able to tell me he was at [facility] denied any pain in any location he stated he had no appetite I called and spoke with his following my visit - we will transition to comfort care measures this am Review of Systems Review of Systems: Unobtainable due to cognitive status Physical Exam Constitutional: + acute distress, + ill appearing and + altered mental status; + not well developed and + not well nourished ENMT: Mouth: + oral mucosal abnormality (MM dry) Respiratory: + respiratory distress, + labored breathing, + retractions and + uses accessory muscles Auscultation: + diminished lung sounds (right side ) and + crackles Cardiovascular: Rate/Rhythm: + tachycardic; + abnormal rhythm (irregular) Heart Sounds: normal S1 and normal S2; no murmur Vessels: + JVD Extremities: + abnormal capillary refill (prolonged) Gastrointestinal (Abdomen): normal bowel sounds, soft, nontender, no hepatosplenomegaly Psychiatric: Orientation: alert; + not oriented x 3 Results & Data Vital Signs (Past 12 Hours) Vital Signs Temp Pulse Resp BP Pulse Ox 08/26/18 07:39 36.0 C L 131 H 18 98/66 L 95 (1) Adenocarcinoma, lung Laterality: right Qualified Code(s): C34.91 - Malignant neoplasm of unspecifi ed part of right bronchus or lung (2) COPD (chronic obstructive pulmonary disease) COPD type: unspecified COPD Qualified Code(s): J44.9 - Chronic obstructive pulmonary disease, unspecified (3) Aspiration pneumonia Aspiration pneumonia type: unspecified Laterality: right Lung location: lower lobe of lung Qualified Code(s): J69.0 - Pneumonitis due to inhalation of food and vomit (4) Dysphagia Dysphagia type: unspecified Qualified Code(s): R13.10 - Dysphagia, unspecified
[2018-08-26] MEDS ORDERED: LORazepam 0.5 MG TAB SL PRN (14:27)
[2018-08-26] MEDS ORDERED: MoRPHine SULFATE 5 MG/0.25 ML UDP PO PRN ×2 (14:28→14:29)
[2018-08-26] MEDS: GLYCOPYRROLATE 0.2 MG/ML VIAL IV PRN ×2 (15:28→22:27)
[2018-08-26] MEDS: CHECK SCOPOLAMINE PATCH PLACEMENT SCH ×2 (15:30→23:48)
--- NOTE | 2018-08-26 16:05 | Palliative Care Progress Note ---
Date of Service August 26, 2018 Assessment & Plan (1) Palliative care encounter: -Increased secretions and moist breath sounds. Add scopolamine patch and atropine drops. Will also add Robinul 0.2mg IV Q4h PRN secretions. -Roxanol 5mg PO/SL Q1h PRN pain or SOB. -Lorazepam 0.5mg SL Q4h PRN anxiety/agitation. -Transition to comfort measures only. Stop all abx and non-comfort medications. No further lab draws. -Plan was for SNF on comfort/hospice. With patient's continued decline, uncertain of his stability for transfer but will continue to follow. (2) Adenocarcinoma, lung: (3) Parkinson disease: (4) Pleural effusion: Subjective Patient is more lethargic today. He has increased moist breath sounds and secretions. Lasix was given earlier today but no urine output since then. asking about transitioning to comfort measures only. See A&P. Review of Systems Review of Systems: Unable to obtain-- patient more lethargic and tired today. Denied any pain. Physical Exam Physical Exam: Constitutional + ill appearing, + thin, +restless Eyes PERRL, conjunctivae normal, anicteric sclerae ENMT external ear and nose normal, oropharynx normal Neck trachea midline, no thyromegaly Respiratory Auscultation: + diminished lung sounds and + rhonchi Extremely coarse and moist breath sounds throughout. Tracheal secretions noted Cardiovascular RRR, no murmur, no edema Rate/Rhythm: regular rhythm Vessels: normal peripheral pulses Extremities: normal capillary refill Gastrointestinal (Abdomen) normal bowel sounds, soft, nontender, no hepatosplenomegaly Skin +pallor Psychiatric Orientation: alert, oriented to person and oriented to place Less restless, more lethargic today Results & Data Vital Signs (Past 12 Hours) Vital Signs Temp Pulse Resp BP Pulse Ox 08/26/18 07:39 36.0 C L 131 H 18 98/66 L 95 Time Spent Midlevel 40 minutes with >50% of time spent at bedside with patient and IDT discussing case and comfort measures.
[2018-08-27] MEDS: MoRPHine SULFATE 2 MG/ML CARP IV PRN ×2 (02:50→07:51)
[2018-08-27] MEDS: GLYCOPYRROLATE 0.2 MG/ML VIAL IV PRN ×2 (02:58→07:51)
[2018-08-27] MEDS: CARBIDOPA/LEVODOPA 25/100MG TAB PO SCH (06:38)
[2018-08-27] MEDS: LEVALBUTEROL HCL 1.25 MG/3 ML NEB NEB SCH (07:13)
[2018-08-27] MEDS: CHECK SCOPOLAMINE PATCH PLACEMENT SCH (07:51)
[2018-08-27] MEDS: [UNRECOGNIZED DRUG - OTHER] SCH (07:51)
[2018-08-27] MEDS: FAMOTIDINE 20 MG in SYRINGE 3 ML IV SCH (07:53)
--- NOTE | 2018-08-27 09:09 | Surgery Progress Note ---
Date of Service August 27, 2018 Assessment & Plan (1) Pleural effusion: -pt. has a pleurex in place which can be drained as needed -continue comfort measures as directed by primary service Subjective Pt. lethargic and in bed. Discussed with Rn--pt. has been made comfort measures. Results & Data Vital Signs (Past 12 Hours) Vital Signs Pulse Resp Pulse Ox 08/27/18 07:14 68 18 88 L
--- NOTE | 2018-08-27 12:35 | Death Summary ---
Date of Service August 27, 2018 Pronouncement Note Date and Time of Date of : 08/27/18 Time of : 11:27 PCOD Preliminary cause of : Adenocarcinoma of lung Contributing Factors (1) Pleural effusion: Contributing factors: COPD Interstitial lung disease Hyponatremia a. fib/flutter with RVR acute on chronic hypoxic respiratory failure malignant pleural effusion presumed malignant pericardial effusion parkinson's disease pneumonia h/o prostate cancer acute/chronic systolic CHF acute kidney injury Summary Additional details: 77-year-old male presents to the emergency department with his complaining of shortness of breath. - Patient notes this SOB began about two days ago. Says he developed a severe cough with any p.o. intake, including any small amounts of water. He notes feeling more hot and cold recently but denies any known fevers. He presently denies any pain including in his chest or abdomen. He denies any other acute concerns. - Patient notes a long history of smoking. Review of the medical record notes COPD, however patient says he does not use any inhalers. He is on 2 L nasal cannula oxygen at home. - Patient was recently hospitalized from July 27- for atrial flutter, aspiration pneumonia, and severe dysphasia. He also underwent placement of a right Pleurx catheter on July 21. His says that someone comes to their home to drain the catheter daily thus far, most recently the day prior to admission. Hospital Course: Patient was treated for pneumonia, likely due to aspiration, with broad-spectrum IV antibiotics. PleurX catheter was drained daily. He was seen in consult by both thoracic surgery and palliative care. The patient's respiratory status worsened as the hospital stay went on due to a combination of the pneumonia, his lung cancer, acute/chronic systolic CHF, etc. On the AM of 08/26/18 the patient developed significant distress and also developed rapid a.fib. Creatinine that AM also socorro to >2 consistent with acute kidney injury. Discussion was held with the patient's , and at that time he was transitioned to comfort care measures only. He remained on comfort care until his passing on 08/27/18. Additional Data Confirmation of : no pulse, no respirations, no heart sounds and pupils fixed and dilated Family: at bedside Attending/PCP notified?: Yes Attending physician: Nazario Whiatker
--- NOTE | 2018-08-27 13:02 | Palliative Care Progress Note ---
Date of Service August 27, 2018 Assessment & Plan (1) Palliative care encounter: Assessment & Plan -Comfort measures only. Patient obtunded today. Appears much more comfortable than yesterday. - and son at bedside. Discussed EOL issues. Talked about what to expect. -No medication changes at this time. -Not stable for transfer out of hospital. Current Visit: Yes None (2) Adenocarcinoma, lung: Current Visit: Yes None (3) Parkinson disease: Current Visit: No Chronic (4) Pleural effusion: Current Visit: No None Review of Systems Review of Systems: Unobtainable due to reduced consciousness Physical Exam Physical Exam: Constitutional + ill appearing, + thin, PERRL, conjunctivae normal, anicteric sclerae ENMT external ear and nose normal, oropharynx normal Neck trachea midline, no thyromegaly Respiratory Auscultation: + diminished lung sounds and + rhonchi Cardiovascular RRR, no murmur, no edema Rate/Rhythm: regular rhythm Gastrointestinal (Abdomen) normal bowel sounds, soft, nontender, no hepatosplenomegaly Skin +pallor Neurologic +obtunded Results & Data Vital Signs (Past 12 Hours) Vital Signs Pulse Resp Pulse Ox 08/27/18 07:14 68 18 88 L Time Spent Midlevel 35 minutes with >50% of time spent at bedside with patient and family discussing EOL issues and POST ANESTHESIA NURSE.
== END 2018-08-27 11:27 | disposition expired | DRG 177 ==
LOC: ED 22:55 → SUATTDRO 08-23 03:00 → 2S 08-23 03:00 → 4E 08-24 17:45